=== PATIENT | female | born 1955 | race African-American/Black ===

== ENCOUNTER 2016-07-14 05:53 | Inpatient (IN) | payer OTHER ==
[2016-07-14] MEDS ORDERED: NS 1000 ML 1,000 ML ONE (05:55)
[2016-07-14] MEDS ORDERED: DUONEB 0.5 MG/3 MG NEB ONE ×2 (06:00→06:07)
[2016-07-14] MEDS ORDERED: SOLU-Medrol 125 MG VIAL IVP ONE (06:00)
[2016-07-14] MEDS ORDERED: NS 1000 ML 1,000 ML IV SCH (06:06)
[2016-07-14 06:07] LABS: ABG PCO2 > 115.0 mmHg (35.0-45.0)
[2016-07-14] MEDS ORDERED: DECADRON JET NEB NEB ONE (06:07)
[2016-07-14 06:08] LABS: ABG ALLEN TEST POS; FRACTIONATED INSPIRED OXYGEN 100
[2016-07-14] MEDS ORDERED: DECADRON INJ ONE (06:13)
[2016-07-14] MEDS ORDERED: DUONEB 0.5 MG/3 MG ONE (06:13)
[2016-07-14] MEDS ORDERED: ATIVAN INJ 2 MG VIAL ONE (06:18)
[2016-07-14] MEDS ORDERED: ATIVAN INJ 2 MG VIAL IVP ONE (06:20)
[2016-07-14] MEDS ORDERED: SODIUM BICARBONATE 8.4% INJ ADULT IVP ONE (06:21)
[2016-07-14] MEDS ORDERED: SODIUM BICARBONATE 8.4% INJ ADULT ONE (06:23)
[2016-07-14 06:30] LABS: BASOPHILS # (AUTO) 0.1 X10^3/uL (0.0-0.1); BASOPHILS % (AUTO) 0.6 % (0.2-1.0); EOSINOPHILS # (AUTO) 0.6 x10^3/uL (0.0-0.2); EOSINOPHILS % (AUTO) 3.2 % (0.9-2.9); HEMATOCRIT 44.6 % (36.0-47.0); HEMOGLOBIN 13.8 g/dL (12.0-16.0); LYMPHOCYTES # (AUTO) 9.3 X10^3/uL (1.3-2.9); LYMPHOCYTES % (AUTO) 48.2 % (21.0-51.0); MEAN CORPUSCULAR HEMOGLOBIN 22.1 pg (27.0-34.0); MEAN CORPUSCULAR HGB CONC 30.9 g/dL (33.0-35.0); MEAN CORPUSCULAR VOLUME 71.6 fL (80.0-100.0); MEAN PLATELET VOLUME 9.8 fL (7.4-11.0); MONOCYTES # (AUTO) 1.6 x10^3/uL (0.3-0.8); MONOCYTES % (AUTO) 8.2 % (0.0-13.0); NEUTROPHILS # (AUTO) 7.7 x10^3/uL (2.2-4.8); NEUTROPHILS % (AUTO) 39.8 % (42.0-75.0); PLATELET COUNT 258 X10^3/uL (150.0-450.0); RED BLOOD COUNT 6.23 X10^6/uL (3.5-5.4); RED CELL DISTRIBUTION WIDTH 16.4 % (11.6-16.5); WHITE BLOOD COUNT 19.3 X10^3/uL (3.6-10.0)
--- NOTE | 2016-07-14 06:35 | DR.SOBA ---
HPI - Time Seen Time seen: 06:35 - Primary Care Physician Primary Care Physician: Yuri - Complaints Chief Complaint Doctors Comments: Patient presented to the ED with respiratory distress, episode of apnea. She was carried to the ED department via stretcher. Nebulized treatment started, ABG obtained; stablized on Bipap. Patient with a history of COPD Chief Complaint:: Daughter stated she woke up stating she was having trouble breathing - Source History Provided: Family Member - Mode of Arrival Mode of Arrival: Stretcher - Timing Onset of Chief Complaint: 07/14/16 PMH - PMH Past Medical History: Yes Past Medical History: Asthma, COPD, Hypertension Past Surgical History: Yes Surgical History: Cholecystectomy, Hysterectomy - Family History History of Family Medical Conditions: Yes Family Medical History: Coronary Artery Disease, Hypertension - Social History Do you use any recreational Drugs:: No - infectious screening Have you traveled outside the country in the last 6 months?: No ROS - Review of Systems Constitutional: negative: Diaphoresis Eyes: No Symptoms Reported ENTM: No Symptoms Reported Respiratoy: No Symptoms Reported Cardiovascular: No Symptoms Reported Gastrointestinal/Abdominal: No Symptoms Reported Genitourinary: No Symptoms Reported Neurological: No Symptoms Reported Musculoskeletal: No Symptoms Reported Integumentary: No Symptoms Reported Hematologic/Lymphatic: No Symptoms Reported Endocrine: No Symptoms Reported Psychiatric: No Symptoms Reported All Other Systems: Reviewed and Negative PE - Vital Signs Vitals: Pulse Rate [Brachial] 112 Pulse Rate 115 Blood Pressure [Right Arm] 125/83 Blood Pressure [Standing] 141/70 Blood Pressure [Sitting] 129/67 Blood Pressure [Lying] 102/48 Blood Pressure 199/92 O2 Sat by Pulse Oximetry 98 - General Limitations: Altered Mental Status General Appearance: In No Apparent Distress, Lethargic - Head Head Exam: Normal Inspection, Atraumatic - Eyes Eye exam: Normal Appearance, PERRL, EOMI - ENT ENT Exam: Normal Exam - Neck Neck Exam: Normal Inspection, Full ROM - Chest Chest Inspection: Normal Inspection - Respiratory Respiratory Exam: Normal Lung Sounds Bilat Respiratory Exam: Bilateral Clear to Auscultation - Cardiovascular Cardiovascular Exam: Regular Rate - Abdominal Exam Abdominal Exam: Normal Inspection Abdominal Tenderness: negative: RUQ, RLQ, LUQ, LLQ, Epigastrium, Suprapubic, Diffuse, Mild, Moderate, Severe, Other - Extremities Extremities Exam: Normal Inspection, Full ROM - Back Back Exam: Normal Inspection, Full ROM - Neurologic Neurological Exam: Alert, Oriented X3, CN II-XII Intact - Psychiatric Psychiatric Exam: Normal Affect, Agitated - Skin Skin Exam: Warm, Dry, Intact Course - Reevaluation 1st: Improved - Consultation Called: 07:45 (Patient presented to Dr Welch recommended to admit for further evaluation and treatment) ROR - Labs Reviewed Result Diagrams: 07/14/16 06:10 07/14/16 06:10 Laboratory: WBC 19.3 X10^3/uL (3.6-10.0) H 07/14/16 06:10 RBC 6.23 X10^6/uL (3.5-5.4) H 07/14/16 06:10 Hgb 13.8 g/dL (12.0-16.0) 07/14/16 06:10 Hct 44.6 % (36.0-47.0) 07/14/16 06:10 MCV 71.6 fL (80.0-100.0) L 07/14/16 06:10 MCH 22.1 pg (27.0-34.0) L 07/14/16 06:10 MCHC 30.9 g/dL (33.0-35.0) L 07/14/16 06:10 RDW 16.4 % (11.6-16.5) 07/14/16 06:10 Plt Count 258 X10^3/uL (150.0-450.0) 07/14/16 06:10 Plt Count Comment Adequate (ADEQUATE) 07/14/16 06:10 MPV 9.8 fL (7.4-11.0) 07/14/16 06:10 Neut % 39.8 % (42.0-75.0) L 07/14/16 06:10 Lymph % 48.2 % (21.0-51.0) 07/14/16 06:10 Wallace % 8.2 % (0.0-13.0) 07/14/16 06:10 Eos % 3.2 % (0.9-2.9) H 07/14/16 06:10 Baso % 0.6 % (0.2-1.0) 07/14/16 06:10 Neut # 7.7 x10^3/uL (2.2-4.8) H 07/14/16 06:10 Lymph # 9.3 X10^3/uL (1.3-2.9) H 07/14/16 06:10 Wallace # 1.6 x10^3/uL (0.3-0.8) H 07/14/16 06:10 Eos # 0.6 x10^3/uL (0.0-0.2) H 07/14/16 06:10 Baso # 0.1 X10^3/uL (0.0-0.1) 07/14/16 06:10 Absolute Nucleated RBC 0.3 /100WBC 07/14/16 06:10 Plt Morphology Comment Normal (NORMAL) 07/14/16 06:10 RBC Morphology Abnormal (NORMAL) A 07/14/16 06:10 Hypochromasia 1+ A 07/14/16 06:10 Microcytosis Slight A 07/14/16 06:10 D-Dimer 2030 ng/mL (0-400) H* 07/14/16 06:10 Sample Site Rr 07/14/16 07:16 ABG pH 7.310 (7.35-7.45) L 07/14/16 07:16 ABG pCO2 53.0 mmHg (35.0-45.0) H* 07/14/16 07:16 ABG pO2 75.0 mmHg (80.0-100.0) L 07/14/16 07:16 ABG HCO3 26.7 mmol/L (22-26) H 07/14/16 07:16 ABG O2 Saturation 93.0 % (90-100) 07/14/16 07:16 ABG Base Excess -0.3 mmol/L (-2.0-2.0) 07/14/16 07:16 Adan Test Pos 07/14/16 07:16 A-a Gradient 572.0 mmHg 07/14/16 07:16 FiO2 100.000 07/14/16 07:16 Blood Gas Comments Pt raicel well. cdn 07/14/16 07:16 Sodium 144 mmol/L (136-145) 07/14/16 06:10 Corrected Sodium 148 mmol/L (136-145) H 07/14/16 06:10 Potassium 4.1 mmol/L (3.5-5.1) 07/14/16 06:10 Chloride 106 mmol/L (98-107) 07/14/16 06:10 Carbon Dioxide 25.3 mmol/L (21-32) 07/14/16 06:10 BUN 13 mg/dL (7-18) 07/14/16 06:10 Creatinine 1.24 mg/dL (0.55-1.02) H 07/14/16 06:10 Est GFR (MDRD) Af Amer 56 (>60) L 07/14/16 06:10 Est GFR (MDRD) Non-Af 47 (>60) L 07/14/16 06:10 Glucose 277 mg/dL (65-99) H 07/14/16 06:10 Calcium 8.8 mg/dL (8.5-10.1) 07/14/16 06:10 Corrected Calcium 9.4 mg/dL (8.5-10.1) 07/14/16 06:10 Total Bilirubin 0.40 mg/dL (0.2-1.0) 07/14/16 06:10 AST 53 Units/L (15-37) H 07/14/16 06:10 ALT 39 Units/L (12-78) 07/14/16 06:10 Alkaline Phosphatase 124 Units/L (46-116) H 07/14/16 06:10 Creatine Kinase 212 Units/L (26-192) H 07/14/16 06:10 CK-MB (CK-2) 1.1 ng/mL (0-4.0) 07/14/16 06:10 CK/CKMB % Calc 0.5 % (<4) 07/14/16 06:10 Troponin I < 0.02 ng/mL (0-1.5) 07/14/16 06:10 Total Protein 8.1 g/dL (6.4-8.2) 07/14/16 06:10 Albumin 3.2 g/dL (3.4-5.0) L 07/14/16 06:10 Globulin 4.9 g/dL (2.5-4.5) H 07/14/16 06:10 Albumin/Globulin Ratio 0.7 Ratio (1.1-2.1) L 07/14/16 06:10 - XRAY XRAY Interpreted by: Radiologist (Portable chest: There is moderately severe diffuse airspace disease. The heart size is normal. There is no obviouspleural effusion and there is no pneumothorax. Impression: Diffuse moderately severe airspace disease that may represent pulmonary edema.) - Diagnosis Discharge Problem: Respiratory distress, acute - Discharge Plan Condition: Stable - Follow ups/Referrals Follow ups/Referrals: JULIANN SZYMANSKI [Primary Care Provider] - 3 days - Instructions
[2016-07-14 06:38] LABS: BLOOD UREA NITROGEN 13 mg/dL (7-18); CALCIUM 8.8 mg/dL (8.5-10.1); CARBON DIOXIDE 25.3 mmol/L (21-32); CHLORIDE 106 mmol/L (98-107); COR NA(FOR HYPERGLY) 148 mmol/L (136-145); CREATININE 1.24 mg/dL (0.55-1.02); GLUCOSE 277 mg/dL (65-99); SODIUM 144 mmol/L (136-145); TROPONIN I < 0.02 ng/mL (0-1.5); eGFR BLACK RACES 56 (>60); eGFR NON BLACK RACES 47 (>60)
[2016-07-14 06:40] LABS: PLATELET MORPHOLOGY COMMENT NORMAL (NORMAL)
--- NOTE | 2016-07-14 06:40 | RAD ---
History: Shortness of breath Study: Portable chest. Comparison: November 2015 Findings: There is moderately severe diffuse airspace disease. The heart size is normal. There is no obvious pleural effusion and there is no pneumothorax. Impression: Diffuse moderately severe airspace disease that may represent pulmonary edema Reported By:
[2016-07-14 06:41] LABS: HYPOCHROMASIA 1+; MICROCYTOSIS SLIGHT
[2016-07-14 06:42] LABS: ALANINE AMINOTRANSFERASE 39 Units/L (12-78); ALBUMIN 3.2 g/dL (3.4-5.0); ALKALINE PHOSPHATASE 124 Units/L (46-116); ASPARTATE AMINO TRANSFERASE 53 Units/L (15-37); CKMB % 0.5 % (<4); COR CA(FOR HYPOALB) 9.4 mg/dL (8.5-10.1); CREATINE KINASE 212 Units/L (26-192); CREATINE KINASE MB 1.1 ng/mL (0-4.0); TOTAL PROTEIN 8.1 g/dL (6.4-8.2)
[2016-07-14 07:00] LABS: D DIMER 2030 ng/mL (0-400)
[2016-07-14 07:26] LABS: ABG BASE EXCESS -0.3 mmol/L (-2.0-2.0); ABG HCO3 26.7 mmol/L (22-26)
[2016-07-14 07:27] LABS: ABG ALLEN TEST POS
[2016-07-14] MEDS ORDERED: ZOFRAN INJ 4 MG VIAL ONE (08:54)
[2016-07-14] MEDS ORDERED: ZOFRAN INJ 4 MG VIAL IVP ONE (08:54)
[2016-07-14] MEDS ORDERED: NS 1000 ML 1,000 ML with POTASSIUM CHLORIDE INJ 20 MEQ VIAL 20 MEQ IV SCH ×2 (09:00)
[2016-07-14] MEDS ORDERED: NS + KCL 20 MEQ/L 1,000 ML IV ONE (09:04)
[2016-07-14] MEDS ORDERED: ROCEPHIN VIAL 1 GM ONE (09:05)
[2016-07-14] MEDS: ROCEPHIN VIAL 1 GM 1 GM in NS 50 ML IV + SPIKE MINIBAG* 50 ML IV SCH (09:17)
[2016-07-14 11:59] VITALS: BMI 53.6
[2016-07-14] MEDS: TUSSIONEX PENNKINETIC SUSP PO PRN (12:15)
[2016-07-14 12:21] LABS: BILIRUBIN,URINE NEGATIVE (NEGATIVE); BLOOD/HEMOGLOBIN,URINE 2+ (NEGATIVE); GLUCOSE, URINE 1+ (NEGATIVE); KETONES,URINE NEGATIVE (NEGATIVE); LEUKOCYTE ESTERASE ,URINE 1+ (NEGATIVE); NITRITES,URINE POSITIVE (NEGATIVE); PROTEIN,URINE 3+ (NEGATIVE); UROBILINOGEN,URINE NORMAL (NORMAL)
[2016-07-14 12:31] LABS: APPEARANCE,URINE HAZY (CLEAR); BACTERIA,URINE TRACE /HPF (NEGATIVE); COLOR,URINE YELLOW (YELLOW); SQUAMOUS EPITHELIAL CELL,UR FEW /HPF (NEGATIVE)
[2016-07-14 12:50] LABS: ABG BASE EXCESS 1.1 mmol/L (-2.0-2.0); ABG HCO3 27.9 mmol/L (22-26)
[2016-07-14 12:51] LABS: ABG ALLEN TEST POS
[2016-07-14] MEDS: LASIX IVP SCH ×2 (13:17→20:22)
[2016-07-14] MEDS: NS + KCL 20 MEQ/L 1,000 ML IV SCH (15:15)
[2016-07-14] MEDS ORDERED: BUDESONIDE FORMOTEROL IN SCH (16:30)
[2016-07-14] MEDS: NEBIVOLOL HCL 5 MG PO SCH (17:46)
--- NOTE | 2016-07-14 18:21 | DR.H&P ---
H&P - History & Physical for Day of: H&P Date: 07/14/16 - Chief Complaint Chief Complaint: weakness, short of breath, lethargic - Allergies Allergies/Adverse Reactions: Allergies Allergy/AdvReac Type Severity Reaction Status Date / Time No Known Drug Allergy Allergy Verified 07/14/16 10:46 - History of Present Illness History of Present Illness: patient is a 60-year-old black female who was an ER admission after presenting with respiratory distress. Patient has a past medical history of asthma and obstructive sleep apnea, hypertension and arthritis. The patient's family states she become ill with a cough and congestion for 1 day ago. Family denies any nausea vomiting diarrhea or fever accompanied by patient's respiratory illness. Patient has been using her albuterol inhaler at home without relief of shortness of breath. Patient admitted to ICU for respiratory management and further evaluation of acute respiratory illness - Past Medical History Past Medical History: Asthma, COPD, Hypertension - Past Surgical History Surgical History: Cholecystectomy, Hysterectomy - Family History Family Medical History: Coronary Artery Disease, Hypertension - Social History Does patient currently use any type of tobacco product: No Have you used tobacco products in the last 12 months: No Type of Tobacco Use: None Does any household member use tobacco: No Alcohol Use: None - Medications Home Medications: Budesonide-Formoterol [SYMBICORT INH 160-4.5 mcg (10.2 g) *] 1 inhalation IN DAILY 07/14/16 [History Confirmed 07/14/16] Furosemide [LASIX TAB 20 MG *] 1 tab PO DAILY 07/14/16 [History Confirmed ] Hydrochlorothiazide [HYDROCHLOROTHIAZIDE 25 MG TAB *] 1 tab PO DAILY 07/14/16 [ History Confirmed 07/14/16] Ipratropium/Albuterol Nebule [DUONEB 0.5 MG/3 MG NEBULE *] 1 inh INH QID [History Confirmed 07/14/16] Phendimetrazine Tartrate 1 cap PO DAILY 07/14/16 [History Confirmed 07/14/16] - Review of Systems Constitutional: Fever, Weakness ENT: No Symptoms Reported Respiratory: Cough, Shortness of Breath, SOB with Excertion, Wheezing Cardiovascular: Palpitations Gastrointestinal: Nausea Musculoskeletal: Back Pain Skin: No Symptoms Reported Neurological: Weakness (diffuse muscle weakness) - Physical Exam Vital Signs: Temperature 98.7 F Pulse Rate [Brachial] 96 Respiratory Rate 25 Blood Pressure [Right Arm] 108/69 O2 Sat by Pulse Oximetry 99 Oriented: Person (weak, opens eyes ,turns head in directions of speaker) Respiratory: Wheezes Throughout, RLL Diminished, LLL Diminished Cardiovascular: Tachycardia : Normal Auscultation: Bowel Sounds: Normal Palpation: Normal Tenderness: Normal Skin: Normal Psychiatric: Anxiety Affect: Anxious Speech Pattern: Aphasic (limited verbal response due to resp distress) - Assessment/Plan (1) Respiratory distress, acute Status: Acute Plan: ADMIT ICU, IV ATBX, IV STEROIDS, RESP THERAPY, ABG. REPEAT AM CXR, LASIX 40MG IV BID DUE TO PULMONARY EDEMA ON CXR. CARDIAC MONITORING (2) Asthma exacerbation Status: Acute (3) Hypertension Qualifiers: Hypertension type: H Status: Acute Plan: BP CONTROL, CARDIAC MONITORING (4) COPD (chronic obstructive pulmonary disease) Qualifiers: COPD type: C Chronic bronchitis type: C Emphysema type: E Status: Acute
[2016-07-14] MEDS: PROVENTIL NEB TX 0.083% 2.5MG/ 3ML NEB SCH ×2 (19:03→21:08)
[2016-07-14] MEDS: ROBITUSSIN DM PO PRN (20:31)
[2016-07-14] MEDS: PULMICORT NEB TX 0.5 MG NEB SCH (21:08)
[2016-07-15] MEDS: NS + KCL 20 MEQ/L 1,000 ML IV SCH ×3 (02:41→18:41)
[2016-07-15] MEDS ORDERED: NS 100 ML IV 100 ML IV ONE (05:57)
--- NOTE | 2016-07-15 06:11 | RAD ---
HISTORY: Respiratory distress Study: Chest one view Comparison: July 14, 2016 Findings: The heart remains enlarged. Pulmonary venous congestion is present. Diffuse bilateral perihilar alve olar filling is identified somewhat improved when compared with the prior examination, however. This could be on the basis of cardiogenic for noncardiogenic edema or bilateral pneumonia. No pleural ef fusions are identified. The bony thorax is unremarkable. IMPRESSION: Moderate cardiomegaly Some improvement in the bilateral perihilar alveolar filling being followed. This could represent re solving edema or improving bilateral pneumonia. Reported By:
[2016-07-15 06:22] LABS: ALANINE AMINOTRANSFERASE 46 Units/L (12-78); ALBUMIN 2.8 g/dL (3.4-5.0); ALKALINE PHOSPHATASE 97 Units/L (46-116); ASPARTATE AMINO TRANSFERASE 40 Units/L (15-37); BLOOD UREA NITROGEN 17 mg/dL (7-18); CALCIUM 8.7 mg/dL (8.5-10.1); CARBON DIOXIDE 30.1 mmol/L (21-32); CHLORIDE 106 mmol/L (98-107); COR CA(FOR HYPOALB) 9.7 mg/dL (8.5-10.1); COR NA(FOR HYPERGLY) 143 mmol/L (136-145); CREATININE 0.91 mg/dL (0.55-1.02); GLUCOSE 124 mg/dL (65-99); SODIUM 142 mmol/L (136-145); TOTAL PROTEIN 7.3 g/dL (6.4-8.2); eGFR BLACK RACES > 60 (>60); eGFR NON BLACK RACES > 60 (>60)
[2016-07-15 06:27] LABS: BASOPHILS % (AUTO) 0.2 % (0.2-1.0); HEMATOCRIT 39.2 % (36.0-47.0); HEMOGLOBIN 12.8 g/dL (12.0-16.0); LYMPHOCYTES # (AUTO) 1.9 X10^3/uL (1.3-2.9); LYMPHOCYTES % (AUTO) 11.1 % (21.0-51.0); MEAN CORPUSCULAR HEMOGLOBIN 22.1 pg (27.0-34.0); MEAN CORPUSCULAR HGB CONC 32.7 g/dL (33.0-35.0); MEAN CORPUSCULAR VOLUME 67.7 fL (80.0-100.0); MEAN PLATELET VOLUME 9.4 fL (7.4-11.0); MONOCYTES # (AUTO) 1.5 x10^3/uL (0.3-0.8); MONOCYTES % (AUTO) 9.1 % (0.0-13.0); NEUTROPHILS # (AUTO) 13.6 x10^3/uL (2.2-4.8); NEUTROPHILS % (AUTO) 79.6 % (42.0-75.0); PLATELET COUNT 255 X10^3/uL (150.0-450.0); RED BLOOD COUNT 5.79 X10^6/uL (3.5-5.4); RED CELL DISTRIBUTION WIDTH 16.1 % (11.6-16.5)
--- NOTE | 2016-07-15 07:16 | CT ---
HISTORY: Acute respiratory distress Study: CTA chest with contrast for pulmonary embolus Comparison: November 09, 2015 Technique: Axial post-contrast images with coronal and sagittal reformats. Dose reduction [facility]kv adjusted for body size. Findings: There is no evidence for acute pulmonary thromboembolic disease. Examination of the mediastinum agai n demonstrated marked enlargement of the thyroid gland with substernal extension and rightward trach eal deviation. The corner also contributes to tracheal narrowing. The should be further evaluated so nographically. This is unchanged in appearance from the prior examination. No enlarged mediastinal o r enlarged hilar adenopathy is identified. No pleural effusions are present. No chest wall or axilla ry abnormality is identified. Those portions of the upper abdominal organs visualized were within no rmal limits. Examination of the lung [place] demonstrates diffuse bilateral patchy and confluent infi ltrates which could be on the basis of bilateral pneumonia, edema, or ARDS. No pleural effusions are identified. IMPRESSION: No evidence for acute pulmonary thromboembolic disease Diffuse bilateral patchy and confluent infiltrates which could represent bilateral pneumonia, edema, or ARDS Markedly enlarged thyroid with substernal extension, rightward tracheal deviation and tracheal narro wing Reported By:
[2016-07-15 07:31] LABS: HYPOCHROMASIA 1+; MICROCYTOSIS 1+; PLATELET MORPHOLOGY COMMENT NORMAL (NORMAL)
[2016-07-15] MEDS: PROVENTIL NEB TX 0.083% 2.5MG/ 3ML NEB SCH ×4 (08:55→21:25)
[2016-07-15] MEDS: PULMICORT NEB TX 0.5 MG NEB SCH ×2 (08:56→21:26)
[2016-07-15] MEDS ORDERED: LASIX PO SCH (09:00)
[2016-07-15] MEDS ORDERED: HYDROCHLOROTHIAZIDE 25 MG TAB PO SCH (09:00)
[2016-07-15] MEDS: LASIX IVP SCH ×2 (09:26→20:00)
[2016-07-15] MEDS: ROCEPHIN VIAL 1 GM 1 GM in NS 50 ML IV + SPIKE MINIBAG* 50 ML IV SCH (09:27)
[2016-07-15] MEDS: NEBIVOLOL HCL 5 MG PO SCH (09:36)
--- NOTE | 2016-07-15 13:05 | PCM.PROG ---
Progress Note - Progress Note for Day of Date: 07/15/16 - Subjective Subjective: 60 BF ADMITTED ON 07/14/2016 WITH ACUTE RESP DISTRESS WITH PULMONARY EDEMA. PT REMOVED FROM BIPAP THIS AM, ON HIGH FLOW O2, DOING MUCH IMPROVED. PT HAS THYROMEGALY FINDING ON CT CHEST, CONITNUE CURRENT MEDICATIONS, IV ATBX, RESP THERAPY, ENCOURAGE ORAL HYDRATION, STRICT I & O'S - Past Medical Family Social History Past Med/Fam/Surg Hx: No changes since H&P Allergies: Allergies No Known Drug Allergy Allergy (Verified 07/14/16 10:46) - Review of Systems ROS: No change since H&P - Vital Signs and I&O's Vital Signs: Temperature 97.6 F Pulse Rate [Brachial] 86 Pulse Rate 85 Respiratory Rate 20 Blood Pressure [Right Arm] 139/78 O2 Sat by Pulse Oximetry 96 Intake and Output: Intake & Output 07/13/16 07/14/16 07/15/16 07/16/16 11:59 11:59 11:59 11:59 Intake Total 2698 Output Total 1900 Balance 798 - Physical Exam Oriented: Normal, Time, Person, Place Eyes: Normal Ear: Normal Nose: Normal Throat: Other (THYROMEGALY) Respiratory: Wheezes Cardiovascular: Tachycardia : Normal Auscultation: Bowel Sounds: Normal Tenderness: Normal Skin: Normal Psychiatric: Anxiety Affect: Anxious Speech Pattern: Clear, Appropriate - Laboratory and Diagnostics Result Diagrams: 07/15/16 05:30 07/15/16 05:30 Labs: 07/14/16 10:43 Urine,[place] Urine Culture - Preliminary Laboratory WBC 17.0 X10^3/uL (3.6-10.0) H 07/15/16 05:30 RBC 5.79 X10^6/uL (3.5-5.4) H 07/15/16 05:30 Hgb 12.8 g/dL (12.0-16.0) 07/15/16 05:30 Hct 39.2 % (36.0-47.0) 07/15/16 05:30 MCV 67.7 fL (80.0-100.0) L 07/15/16 05:30 MCH 22.1 pg (27.0-34.0) L 07/15/16 05:30 MCHC 32.7 g/dL (33.0-35.0) L 07/15/16 05:30 RDW 16.1 % (11.6-16.5) 07/15/16 05:30 Plt Count 255 X10^3/uL (150.0-450.0) 07/15/16 05:30 Plt Count Comment Adequate (ADEQUATE) 07/15/16 05:30 MPV 9.4 fL (7.4-11.0) 07/15/16 05:30 Neut % 79.6 % (42.0-75.0) H 07/15/16 05:30 Lymph % 11.1 % (21.0-51.0) L 07/15/16 05:30 [place] % 9.1 % (0.0-13.0) 07/15/16 05:30 Eos % 0.0 % (0.9-2.9) L 07/15/16 05:30 Baso % 0.2 % (0.2-1.0) 07/15/16 05:30 Neut # 13.6 x10^3/uL (2.2-4.8) H 07/15/16 05:30 Lymph # 1.9 X10^3/uL (1.3-2.9) 07/15/16 05:30 [place] # 1.5 x10^3/uL (0.3-0.8) H 07/15/16 05:30 Eos # 0.0 x10^3/uL (0.0-0.2) 07/15/16 05:30 Baso # 0.0 X10^3/uL (0.0-0.1) 07/15/16 05:30 Absolute Nucleated RBC 0.0 /100WBC 07/15/16 05:30 Plt Morphology Comment Normal (NORMAL) 07/15/16 05:30 RBC Morphology Abnormal (NORMAL) A 07/15/16 05:30 Hypochromasia 1+ A 07/15/16 05:30 Microcytosis 1+ A 07/15/16 05:30 D-Dimer 2030 ng/mL (0-400) H* 07/14/16 06:10 Sample Site Rr 07/14/16 12:45 ABG pH 7.330 (7.35-7.45) L 07/14/16 12:45 ABG pCO2 53.0 mmHg (35.0-45.0) H* 07/14/16 12:45 ABG pO2 70.0 mmHg (80.0-100.0) L 07/14/16 12:45 ABG HCO3 27.9 mmol/L (22-26) H 07/14/16 12:45 ABG O2 Saturation 92.0 % (90-100) 07/14/16 12:45 ABG Base Excess 1.1 mmol/L (-2.0-2.0) 07/14/16 12:45 Adan Test Pos 07/14/16 12:45 A-a Gradient 363.0 mmHg 07/14/16 12:45 FiO2 70.000 07/14/16 12:45 Blood Gas Comments Pt [email or web address] [email or web address] 07/14/16 12:45 Sodium 142 mmol/L (136-145) 07/15/16 05:30 Corrected Sodium 143 mmol/L (136-145) 07/15/16 05:30 Potassium 4.4 mmol/L (3.5-5.1) 07/15/16 05:30 Chloride 106 mmol/L (98-107) 07/15/16 05:30 Carbon Dioxide 30.1 mmol/L (21-32) 07/15/16 05:30 BUN 17 mg/dL (7-18) 07/15/16 05:30 Creatinine 0.91 mg/dL (0.55-1.02) 07/15/16 05:30 Est GFR (MDRD) Af Amer > 60 (>60) 07/15/16 05:30 Est GFR (MDRD) Non-Af > 60 (>60) 07/15/16 05:30 Glucose 124 mg/dL (65-99) H 07/15/16 05:30 Lactic Acid 3.1 mmol/L (0.4-2.0) H 07/14/16 08:38 Calcium 8.7 mg/dL (8.5-10.1) 07/15/16 05:30 Corrected Calcium 9.7 mg/dL (8.5-10.1) 07/15/16 05:30 Total Bilirubin 0.40 mg/dL (0.2-1.0) 07/15/16 05:30 AST 40 Units/L (15-37) H 07/15/16 05:30 ALT 46 Units/L (12-78) 07/15/16 05:30 Alkaline Phosphatase 97 Units/L (46-116) 07/15/16 05:30 Creatine Kinase 212 Units/L (26-192) H 07/14/16 06:10 CK-MB (CK-2) 1.1 ng/mL (0-4.0) 07/14/16 06:10 CK/CKMB % Calc 0.5 % (<4) 07/14/16 06:10 Troponin I < 0.02 ng/mL (0-1.5) 07/14/16 06:10 Total Protein 7.3 g/dL (6.4-8.2) 07/15/16 05:30 Albumin 2.8 g/dL (3.4-5.0) L 07/15/16 05:30 Globulin 4.5 g/dL (2.5-4.5) 07/15/16 05:30 Albumin/Globulin Ratio 0.6 Ratio (1.1-2.1) L 07/15/16 05:30 Specimen Type Clean catch urine 07/14/16 10:43 Urine Color Yellow (YELLOW) 07/14/16 10:43 Urine Appearance Hazy (CLEAR) 07/14/16 10:43 Urine pH 5.0 (5.0 - 8.0) 07/14/16 10:43 Ur Specific [place] 1.030 (1.000-1.030) 07/14/16 10:43 Urine Protein 3+ (NEGATIVE) 07/14/16 10:43 Urine Glucose (UA) 1+ (NEGATIVE) 07/14/16 10:43 Urine Ketones Negative (NEGATIVE) 07/14/16 10:43 Urine Occult Blood 2+ (NEGATIVE) 07/14/16 10:43 Urine Nitrite Positive (NEGATIVE) 07/14/16 10:43 Urine Bilirubin Negative (NEGATIVE) 07/14/16 10:43 Urine Urobilinogen Normal (NORMAL) 07/14/16 10:43 Ur Leukocyte Esterase 1+ (NEGATIVE) 07/14/16 10:43 Urine RBC 6-8 /HPF (NEGATIVE) 07/14/16 10:43 Urine WBC 8-10 /HPF (NEGATIVE) 07/14/16 10:43 Ur Squamous Epith Cells Few /HPF (NEGATIVE) 07/14/16 10:43 Urine Bacteria Trace /HPF (NEGATIVE) 07/14/16 10:43 Ur Culture Indicated? Yes/culture set up 07/14/16 10:43 - Plan (1) Respiratory distress, acute Status: Acute Plan: IMPROVING RESPIRATORY DISTRESS, IV STEROIDS, RESP THERAPY,. REPEAT AM CXR , LASIX 40MG IV BID X4 DOSES. DUE TO PULMONARY EDEMA ON CXR. CARDIAC MONITORING (2) Asthma exacerbation Status: Inactive Plan: RESP CARE, IV STEROIDS (3) Hypertension Status: Acute Qualifiers: Hypertension type: H Plan: BP CONTROL, CARDIAC MONITORING (4) COPD (chronic obstructive pulmonary disease) Status: Acute Qualifiers: COPD type: C Chronic bronchitis type: C Emphysema type: E (5) Thyroid goiter Status: Chronic Plan: CT REPORT ON CHART
[2016-07-15 13:57] LABS: FREE T4 (FREE THYROXINE) 1.19 ng/dL (0.76-1.46); TSH (3RD GENERATION) 0.312 uIU/mL (0.358-3.74)
[2016-07-15] MEDS: PROTONIX INJ 40 MG VIAL IVP SCH (16:25)
[2016-07-15] MEDS: TUSSIONEX PENNKINETIC SUSP PO PRN (20:00)
[2016-07-15] MEDS: MILK OF MAGNESIA PO SCH (20:00)
[2016-07-15] MEDS: COLACE CAP 100 MG PO SCH (20:00)
[2016-07-15] MEDS: ROBITUSSIN DM PO PRN (20:00)
[2016-07-16 06:31] LABS: BASOPHILS % (AUTO) 0.3 % (0.2-1.0); EOSINOPHILS # (AUTO) 0.1 x10^3/uL (0.0-0.2); EOSINOPHILS % (AUTO) 0.7 % (0.9-2.9); HEMATOCRIT 37.8 % (36.0-47.0); HEMOGLOBIN 12.4 g/dL (12.0-16.0); LYMPHOCYTES # (AUTO) 3.8 X10^3/uL (1.3-2.9); LYMPHOCYTES % (AUTO) 28.4 % (21.0-51.0); MEAN CORPUSCULAR HEMOGLOBIN 22.2 pg (27.0-34.0); MEAN CORPUSCULAR HGB CONC 32.7 g/dL (33.0-35.0); MEAN PLATELET VOLUME 9.6 fL (7.4-11.0); MONOCYTES # (AUTO) 1.2 x10^3/uL (0.3-0.8); MONOCYTES % (AUTO) 9.1 % (0.0-13.0); NEUTROPHILS # (AUTO) 8.2 x10^3/uL (2.2-4.8); NEUTROPHILS % (AUTO) 61.5 % (42.0-75.0); PLATELET COUNT 214 X10^3/uL (150.0-450.0); RED BLOOD COUNT 5.56 X10^6/uL (3.5-5.4); RED CELL DISTRIBUTION WIDTH 15.8 % (11.6-16.5); WHITE BLOOD COUNT 13.3 X10^3/uL (3.6-10.0)
[2016-07-16 07:01] LABS: ALANINE AMINOTRANSFERASE 37 Units/L (12-78); ALKALINE PHOSPHATASE 91 Units/L (46-116); ASPARTATE AMINO TRANSFERASE 30 Units/L (15-37); BLOOD UREA NITROGEN 17 mg/dL (7-18); CALCIUM 8.7 mg/dL (8.5-10.1); CHLORIDE 103 mmol/L (98-107); COR CA(FOR HYPOALB) 9.5 mg/dL (8.5-10.1); CREATININE 0.85 mg/dL (0.55-1.02); GLUCOSE 100 mg/dL (65-99); SODIUM 143 mmol/L (136-145); TOTAL PROTEIN 7.5 g/dL (6.4-8.2); eGFR BLACK RACES > 60 (>60); eGFR NON BLACK RACES > 60 (>60)
[2016-07-16 07:31] LABS: HYPOCHROMASIA 1+; MICROCYTOSIS 1+; PLATELET MORPHOLOGY COMMENT NORMAL (NORMAL)
[2016-07-16] MEDS: PROVENTIL NEB TX 0.083% 2.5MG/ 3ML NEB SCH ×4 (08:52→20:21)
[2016-07-16] MEDS: PULMICORT NEB TX 0.5 MG NEB SCH ×2 (08:53→20:22)
[2016-07-16] MEDS: PROTONIX INJ 40 MG VIAL IVP SCH (09:39)
[2016-07-16] MEDS: ROCEPHIN VIAL 1 GM 1 GM in NS 50 ML IV + SPIKE MINIBAG* 50 ML IV SCH (09:39)
[2016-07-16] MEDS: NEBIVOLOL HCL 5 MG PO SCH (10:17)
--- NOTE | 2016-07-16 11:19 | RAD ---
AP Chest Indication: Shortness of breath Comparison: 07/15/2016 Findings: The trachea is midline. The cardiac silhouette is unremarkable. The overall there is decreasing in terstitial opacities and peribronchial thickening likely representing improving pulmonary interstiti al edema or atypical infiltrates. The bony thorax is unremarkable. IMPRESSION: 1. Moderate decrease in interstitial opacities and peribronchial thickening within both lungs consi stent with either improving interstitial edema or atypical infiltrates. Reported By:
--- NOTE | 2016-07-16 11:55 | PCM.PROG ---
Progress Note - Subjective Subjective: 60 BF ADMITTED ON 07/14/2016 WITH ACUTE RESP DISTRESS WITH PULMONARY EDEMA. PT REMOVED FROM BIPAP THIS AM, ON HIGH FLOW O2, DOING MUCH IMPROVED. PT HAS THYROMEGALY FINDING ON CT CHEST, CONITNUE CURRENT MEDICATIONS, IV ATBX, RESP THERAPY, ENCOURAGE ORAL HYDRATION, STRICT I & O'S - Past Medical Family Social History Past Med/Fam/Surg Hx: No changes since H&P Allergies: Allergies No Known Drug Allergy Allergy (Verified 07/14/16 10:46) - Review of Systems ROS: No change since H&P - Vital Signs and I&O's Vital Signs: Temperature 98.5 F Pulse Rate [Brachial] 85 Pulse Rate 82 Respiratory Rate 17 Blood Pressure [Right Arm] 115/73 O2 Sat by Pulse Oximetry 97 Intake and Output: Intake & Output 07/13/16 07/14/16 07/15/16 07/16/16 11:59 11:59 11:59 11:59 Intake Total 2698 2240 Output Total 1900 4900 Balance 798 -2660 - Physical Exam Oriented: Normal, Time, Person, Place Eyes: Normal Ear: Normal Nose: Normal Throat: Other (THYROMEGALY) Respiratory: Wheezes Cardiovascular: Tachycardia : Normal Auscultation: Bowel Sounds: Normal Tenderness: Normal Skin: Normal Psychiatric: Anxiety Affect: Anxious Speech Pattern: Clear, Appropriate - Laboratory and Diagnostics Result Diagrams: 07/16/16 05:35 07/16/16 05:35 Labs: 07/16/16 10:16 Sputum - Expectorated Sputum - Final 07/14/16 10:43 Urine,[place] Urine Culture - Final Escherichia Coli Laboratory WBC 13.3 X10^3/uL (3.6-10.0) H 07/16/16 05:35 RBC 5.56 X10^6/uL (3.5-5.4) H 07/16/16 05:35 Hgb 12.4 g/dL (12.0-16.0) 07/16/16 05:35 Hct 37.8 % (36.0-47.0) 07/16/16 05:35 MCV 68.0 fL (80.0-100.0) L 07/16/16 05:35 MCH 22.2 pg (27.0-34.0) L 07/16/16 05:35 MCHC 32.7 g/dL (33.0-35.0) L 07/16/16 05:35 RDW 15.8 % (11.6-16.5) 07/16/16 05:35 Plt Count 214 X10^3/uL (150.0-450.0) 07/16/16 05:35 Plt Count Comment Adequate (ADEQUATE) 07/16/16 05:35 MPV 9.6 fL (7.4-11.0) 07/16/16 05:35 Neut % 61.5 % (42.0-75.0) 07/16/16 05:35 Lymph % 28.4 % (21.0-51.0) 07/16/16 05:35 [place] % 9.1 % (0.0-13.0) 07/16/16 05:35 Eos % 0.7 % (0.9-2.9) L 07/16/16 05:35 Baso % 0.3 % (0.2-1.0) 07/16/16 05:35 Neut # 8.2 x10^3/uL (2.2-4.8) H 07/16/16 05:35 Lymph # 3.8 X10^3/uL (1.3-2.9) H 07/16/16 05:35 [place] # 1.2 x10^3/uL (0.3-0.8) H 07/16/16 05:35 Eos # 0.1 x10^3/uL (0.0-0.2) 07/16/16 05:35 Baso # 0.0 X10^3/uL (0.0-0.1) 07/16/16 05:35 Absolute Nucleated RBC 0.1 /100WBC 07/16/16 05:35 Plt Morphology Comment Normal (NORMAL) 07/16/16 05:35 RBC Morphology Abnormal (NORMAL) A 07/16/16 05:35 Hypochromasia 1+ A 07/16/16 05:35 Microcytosis 1+ A 07/16/16 05:35 D-Dimer 2030 ng/mL (0-400) H* 07/14/16 06:10 Sample Site Rr 07/14/16 12:45 ABG pH 7.330 (7.35-7.45) L 07/14/16 12:45 ABG pCO2 53.0 mmHg (35.0-45.0) H* 07/14/16 12:45 ABG pO2 70.0 mmHg (80.0-100.0) L 07/14/16 12:45 ABG HCO3 27.9 mmol/L (22-26) H 07/14/16 12:45 ABG O2 Saturation 92.0 % (90-100) 07/14/16 12:45 ABG Base Excess 1.1 mmol/L (-2.0-2.0) 07/14/16 12:45 Adan Test Pos 07/14/16 12:45 A-a Gradient 363.0 mmHg 07/14/16 12:45 FiO2 70.000 07/14/16 12:45 Blood Gas Comments Pt [facility]iel [email or web address] 07/14/16 12:45 Sodium 143 mmol/L (136-145) 07/16/16 05:35 Corrected Sodium TNP 07/16/16 05:35 Potassium 4.2 mmol/L (3.5-5.1) 07/16/16 05:35 Chloride 103 mmol/L (98-107) 07/16/16 05:35 Carbon Dioxide 34.0 mmol/L (21-32) H 07/16/16 05:35 BUN 17 mg/dL (7-18) 07/16/16 05:35 Creatinine 0.85 mg/dL (0.55-1.02) 07/16/16 05:35 Est GFR (MDRD) Af Amer > 60 (>60) 07/16/16 05:35 Est GFR (MDRD) Non-Af > 60 (>60) 07/16/16 05:35 Glucose 100 mg/dL (65-99) H 07/16/16 05:35 Lactic Acid 3.1 mmol/L (0.4-2.0) H 07/14/16 08:38 Calcium 8.7 mg/dL (8.5-10.1) 07/16/16 05:35 Corrected Calcium 9.5 mg/dL (8.5-10.1) 07/16/16 05:35 Total Bilirubin 0.50 mg/dL (0.2-1.0) 07/16/16 05:35 AST 30 Units/L (15-37) 07/16/16 05:35 ALT 37 Units/L (12-78) 07/16/16 05:35 Alkaline Phosphatase 91 Units/L (46-116) 07/16/16 05:35 Creatine Kinase 212 Units/L (26-192) H 07/14/16 06:10 CK-MB (CK-2) 1.1 ng/mL (0-4.0) 07/14/16 06:10 CK/CKMB % Calc 0.5 % (<4) 07/14/16 06:10 Troponin I < 0.02 ng/mL (0-1.5) 07/14/16 06:10 Total Protein 7.5 g/dL (6.4-8.2) 07/16/16 05:35 Albumin 3.0 g/dL (3.4-5.0) L 07/16/16 05:35 Globulin 4.5 g/dL (2.5-4.5) 07/16/16 05:35 Albumin/Globulin Ratio 0.7 Ratio (1.1-2.1) L 07/16/16 05:35 Free T4 1.19 ng/dL (0.76-1.46) 07/15/16 05:30 TSH 3rd Generation 0.312 uIU/mL (0.358-3.74) L 07/15/16 05:30 Specimen Type Clean catch urine 07/14/16 10:43 Urine Color Yellow (YELLOW) 07/14/16 10:43 Urine Appearance Hazy (CLEAR) 07/14/16 10:43 Urine pH 5.0 (5.0 - 8.0) 07/14/16 10:43 Ur Specific [place] 1.030 (1.000-1.030) 07/14/16 10:43 Urine Protein 3+ (NEGATIVE) 07/14/16 10:43 Urine Glucose (UA) 1+ (NEGATIVE) 07/14/16 10:43 Urine Ketones Negative (NEGATIVE) 07/14/16 10:43 Urine Occult Blood 2+ (NEGATIVE) 07/14/16 10:43 Urine Nitrite Positive (NEGATIVE) 07/14/16 10:43 Urine Bilirubin Negative (NEGATIVE) 07/14/16 10:43 Urine Urobilinogen Normal (NORMAL) 07/14/16 10:43 Ur Leukocyte Esterase 1+ (NEGATIVE) 07/14/16 10:43 Urine RBC 6-8 /HPF (NEGATIVE) 07/14/16 10:43 Urine WBC 8-10 /HPF (NEGATIVE) 07/14/16 10:43 Ur Squamous Epith Cells Few /HPF (NEGATIVE) 07/14/16 10:43 Urine Bacteria Trace /HPF (NEGATIVE) 07/14/16 10:43 Ur Culture Indicated? Yes/culture set up 07/14/16 10:43 - Plan (1) Respiratory distress, acute Status: Acute Plan: IMPROVING RESPIRATORY DISTRESS, IV STEROIDS, RESP THERAPY,. REPEAT AM CXR , LASIX 40MG IV BID X4 DOSES. DUE TO PULMONARY EDEMA ON CXR. CARDIAC MONITORING (2) Asthma exacerbation Status: Inactive Plan: RESP CARE, IV STEROIDS (3) Hypertension Status: Acute Qualifiers: Hypertension type: H Plan: BP CONTROL, CARDIAC MONITORING (4) COPD (chronic obstructive pulmonary disease) Status: Acute Qualifiers: COPD type: C Chronic bronchitis type: C Emphysema type: E (5) Thyroid goiter Status: Chronic Plan: CT REPORT ON CHART, [facility] FREET4, US THYROID. PFT R/O RESTRICTED AIRWAY (6) Acute on chronic respiratory failure with hypercapnia Status: Acute Plan: CONITNUE RESP CARE, AM CXR, PFT. CONSULT [facility] FOR RESP SERVICES AT HOME, CPAP/TRILOGY THERAPY
[2016-07-16] MEDS: COLACE CAP 100 MG PO SCH (20:00)
[2016-07-16] MEDS: MILK OF MAGNESIA PO SCH (20:00)
--- NOTE | 2016-07-16 20:51 | US ---
ULTRASOUND OF THE THYROID CLINICAL INDICATION: Thyromegaly COMPARISON: None PROCEDURE: Grayscale and color images of the thyroid was obtained. Findings: Isthmus: Isthmus measures 18 mm. Right thyroid: Right thyroid lobe measures 4.6 x 1.6 x 1.7 cm. No nodules. Left thyroid: Left thyroid lobe measures 5.7 x 3.6 x 6.3 cm. 1.2 cm cyst. IMPRESSION: 1. Enlarged thyroid gland without nodule amenable to FNA biopsy. [email or web address]://pubs.[email or web address]/doi/[email or web address] Reported By:
[2016-07-16] MEDS: NS + KCL 20 MEQ/L 1,000 ML IV SCH ×2 (21:40→21:54)
[2016-07-17 06:23] LABS: BASOPHILS # (AUTO) 0.1 X10^3/uL (0.0-0.1); BASOPHILS % (AUTO) 1.1 % (0.2-1.0); EOSINOPHILS # (AUTO) 0.2 x10^3/uL (0.0-0.2); EOSINOPHILS % (AUTO) 1.8 % (0.9-2.9); HEMATOCRIT 37.1 % (36.0-47.0); HEMOGLOBIN 12.1 g/dL (12.0-16.0); LYMPHOCYTES # (AUTO) 3.3 X10^3/uL (1.3-2.9); LYMPHOCYTES % (AUTO) 35.2 % (21.0-51.0); MEAN CORPUSCULAR HEMOGLOBIN 22.2 pg (27.0-34.0); MEAN CORPUSCULAR HGB CONC 32.7 g/dL (33.0-35.0); MEAN CORPUSCULAR VOLUME 67.8 fL (80.0-100.0); MEAN PLATELET VOLUME 9.7 fL (7.4-11.0); MONOCYTES # (AUTO) 0.9 x10^3/uL (0.3-0.8); MONOCYTES % (AUTO) 9.6 % (0.0-13.0); NEUTROPHILS # (AUTO) 4.8 x10^3/uL (2.2-4.8); NEUTROPHILS % (AUTO) 52.3 % (42.0-75.0); PLATELET COUNT 200 X10^3/uL (150.0-450.0); RED BLOOD COUNT 5.47 X10^6/uL (3.5-5.4); RED CELL DISTRIBUTION WIDTH 16.1 % (11.6-16.5); WHITE BLOOD COUNT 9.2 X10^3/uL (3.6-10.0)
[2016-07-17 06:56] LABS: ALANINE AMINOTRANSFERASE 30 Units/L (12-78); ALBUMIN 2.7 g/dL (3.4-5.0); ALKALINE PHOSPHATASE 82 Units/L (46-116); ASPARTATE AMINO TRANSFERASE 17 Units/L (15-37); BLOOD UREA NITROGEN 14 mg/dL (7-18); CALCIUM 8.7 mg/dL (8.5-10.1); CARBON DIOXIDE 33.5 mmol/L (21-32); CHLORIDE 106 mmol/L (98-107); COR CA(FOR HYPOALB) 9.7 mg/dL (8.5-10.1); CREATININE 0.76 mg/dL (0.55-1.02); GLUCOSE 95 mg/dL (65-99); SODIUM 144 mmol/L (136-145); TOTAL PROTEIN 7.2 g/dL (6.4-8.2); eGFR BLACK RACES > 60 (>60); eGFR NON BLACK RACES > 60 (>60)
[2016-07-17 07:01] LABS: HYPOCHROMASIA 1+; MICROCYTOSIS 1+; PLATELET MORPHOLOGY COMMENT NORMAL (NORMAL)
[2016-07-17] MEDS: PROTONIX INJ 40 MG VIAL IVP SCH (08:56)
[2016-07-17] MEDS: ROCEPHIN VIAL 1 GM 1 GM in NS 50 ML IV + SPIKE MINIBAG* 50 ML IV SCH (08:56)
[2016-07-17] MEDS: PULMICORT NEB TX 0.5 MG NEB SCH ×2 (09:22→21:05)
[2016-07-17] MEDS: PROVENTIL NEB TX 0.083% 2.5MG/ 3ML NEB SCH ×4 (09:22→21:05)
[2016-07-17] MEDS: LOVENOX INJ 40 MG SYR SC SCH (10:09)
--- NOTE | 2016-07-17 12:56 | PCM.PROG ---
Progress Note - Progress Note for Day of Date: 07/17/16 - Subjective Subjective: 60 BF ADMITTED ON 07/14/2016 WITH ACUTE RESP DISTRESS WITH PULMONARY EDEMA. PT REMOVED FROM BIPAP THIS AM, ON HIGH FLOW O2, DOING MUCH IMPROVED. PT HAS THYROMEGALY FINDING ON CT CHEST, CONFIRMED WITH US. CONITNUE CURRENT MEDICATIONS, IV ATBX, RESP THERAPY, ENCOURAGE ORAL HYDRATION, STRICT I & O'S REPEAT AM ABG, CXR Q AM - Past Medical Family Social History Past Med/Fam/Surg Hx: No changes since H&P Allergies: Allergies No Known Drug Allergy Allergy (Verified 07/14/16 10:46) - Review of Systems ROS: No change since H&P - Vital Signs and I&O's Vital Signs: Temperature 97.8 F Pulse Rate [Brachial] 85 Pulse Rate 75 Respiratory Rate 20 Blood Pressure [Right Arm] 109/60 O2 Sat by Pulse Oximetry 98 Intake and Output: Intake & Output 07/15/16 07/16/16 07/17/16 07/18/16 11:59 11:59 11:59 11:59 Intake Total 2698 2240 2356 Output Total 1900 4900 1900 Balance 798 -2660 456 - Physical Exam Oriented: Normal, Time, Person, Place Eyes: Normal Ear: Normal Nose: Normal Throat: Other (THYROMEGALY) Respiratory: Wheezes Cardiovascular: Tachycardia : Normal Auscultation: Bowel Sounds: Normal Tenderness: Normal Skin: Normal Musculoskeletal: Back:Lumbar Psychiatric: Anxiety Affect: Anxious Speech Pattern: Clear, Appropriate - Laboratory and Diagnostics Result Diagrams: 07/17/16 05:30 07/17/16 05:30 Labs: 07/16/16 10:16 Sputum - Expectorated Sputum Sputum Culture - Preliminary 07/16/16 10:16 Sputum - Expectorated Sputum - Final 07/14/16 09:11 Blood Blood Culture - Preliminary 07/14/16 10:43 Urine,[place] Urine Culture - Final Escherichia Coli Laboratory WBC 9.2 X10^3/uL (3.6-10.0) 07/17/16 05:30 RBC 5.47 X10^6/uL (3.5-5.4) H 07/17/16 05:30 Hgb 12.1 g/dL (12.0-16.0) 07/17/16 05:30 Hct 37.1 % (36.0-47.0) 07/17/16 05:30 MCV 67.8 fL (80.0-100.0) L 07/17/16 05:30 MCH 22.2 pg (27.0-34.0) L 07/17/16 05:30 MCHC 32.7 g/dL (33.0-35.0) L 07/17/16 05:30 RDW 16.1 % (11.6-16.5) 07/17/16 05:30 Plt Count 200 X10^3/uL (150.0-450.0) 07/17/16 05:30 Plt Count Comment Adequate (ADEQUATE) 07/17/16 05:30 MPV 9.7 fL (7.4-11.0) 07/17/16 05:30 Neut % 52.3 % (42.0-75.0) 07/17/16 05:30 Lymph % 35.2 % (21.0-51.0) 07/17/16 05:30 [place] % 9.6 % (0.0-13.0) 07/17/16 05:30 Eos % 1.8 % (0.9-2.9) 07/17/16 05:30 Baso % 1.1 % (0.2-1.0) H 07/17/16 05:30 Neut # 4.8 x10^3/uL (2.2-4.8) 07/17/16 05:30 Lymph # 3.3 X10^3/uL (1.3-2.9) H 07/17/16 05:30 [place] # 0.9 x10^3/uL (0.3-0.8) H 07/17/16 05:30 Eos # 0.2 x10^3/uL (0.0-0.2) 07/17/16 05:30 Baso # 0.1 X10^3/uL (0.0-0.1) 07/17/16 05:30 Absolute Nucleated RBC 0.1 /100WBC 07/17/16 05:30 Plt Morphology Comment Normal (NORMAL) 07/17/16 05:30 RBC Morphology Abnormal (NORMAL) A 07/17/16 05:30 Hypochromasia 1+ A 07/17/16 05:30 Microcytosis 1+ A 07/17/16 05:30 D-Dimer 2030 ng/mL (0-400) H* 07/14/16 06:10 Sample Site Rr 07/14/16 12:45 ABG pH 7.330 (7.35-7.45) L 07/14/16 12:45 ABG pCO2 53.0 mmHg (35.0-45.0) H* 07/14/16 12:45 ABG pO2 70.0 mmHg (80.0-100.0) L 07/14/16 12:45 ABG HCO3 27.9 mmol/L (22-26) H 07/14/16 12:45 ABG O2 Saturation 92.0 % (90-100) 07/14/16 12:45 ABG Base Excess 1.1 mmol/L (-2.0-2.0) 07/14/16 12:45 Adan Test Pos 07/14/16 12:45 A-a Gradient 363.0 mmHg 07/14/16 12:45 FiO2 70.000 07/14/16 12:45 Blood Gas Comments Pt [facility]iel [email or web address] 07/14/16 12:45 Sodium 144 mmol/L (136-145) 07/17/16 05:30 Corrected Sodium TNP 07/17/16 05:30 Potassium 4.3 mmol/L (3.5-5.1) 07/17/16 05:30 Chloride 106 mmol/L (98-107) 07/17/16 05:30 Carbon Dioxide 33.5 mmol/L (21-32) H 07/17/16 05:30 BUN 14 mg/dL (7-18) 07/17/16 05:30 Creatinine 0.76 mg/dL (0.55-1.02) 07/17/16 05:30 Est GFR (MDRD) Af Amer > 60 (>60) 07/17/16 05:30 Est GFR (MDRD) Non-Af > 60 (>60) 07/17/16 05:30 Glucose 95 mg/dL (65-99) 07/17/16 05:30 Lactic Acid 3.1 mmol/L (0.4-2.0) H 07/14/16 08:38 Calcium 8.7 mg/dL (8.5-10.1) 07/17/16 05:30 Corrected Calcium 9.7 mg/dL (8.5-10.1) 07/17/16 05:30 Total Bilirubin 0.30 mg/dL (0.2-1.0) 07/17/16 05:30 AST 17 Units/L (15-37) 07/17/16 05:30 ALT 30 Units/L (12-78) 07/17/16 05:30 Alkaline Phosphatase 82 Units/L (46-116) 07/17/16 05:30 Creatine Kinase 212 Units/L (26-192) H 07/14/16 06:10 CK-MB (CK-2) 1.1 ng/mL (0-4.0) 07/14/16 06:10 CK/CKMB % Calc 0.5 % (<4) 07/14/16 06:10 Troponin I < 0.02 ng/mL (0-1.5) 07/14/16 06:10 Total Protein 7.2 g/dL (6.4-8.2) 07/17/16 05:30 Albumin 2.7 g/dL (3.4-5.0) L 07/17/16 05:30 Globulin 4.5 g/dL (2.5-4.5) 07/17/16 05:30 Albumin/Globulin Ratio 0.6 Ratio (1.1-2.1) L 07/17/16 05:30 Free T4 1.19 ng/dL (0.76-1.46) 07/15/16 05:30 TSH 3rd Generation 0.312 uIU/mL (0.358-3.74) L 07/15/16 05:30 Specimen Type Clean catch urine 07/14/16 10:43 Urine Color Yellow (YELLOW) 07/14/16 10:43 Urine Appearance Hazy (CLEAR) 07/14/16 10:43 Urine pH 5.0 (5.0 - 8.0) 07/14/16 10:43 Ur Specific [place] 1.030 (1.000-1.030) 07/14/16 10:43 Urine Protein 3+ (NEGATIVE) 07/14/16 10:43 Urine Glucose (UA) 1+ (NEGATIVE) 07/14/16 10:43 Urine Ketones Negative (NEGATIVE) 07/14/16 10:43 Urine Occult Blood 2+ (NEGATIVE) 07/14/16 10:43 Urine Nitrite Positive (NEGATIVE) 07/14/16 10:43 Urine Bilirubin Negative (NEGATIVE) 07/14/16 10:43 Urine Urobilinogen Normal (NORMAL) 07/14/16 10:43 Ur Leukocyte Esterase 1+ (NEGATIVE) 07/14/16 10:43 Urine RBC 6-8 /HPF (NEGATIVE) 07/14/16 10:43 Urine WBC 8-10 /HPF (NEGATIVE) 07/14/16 10:43 Ur Squamous Epith Cells Few /HPF (NEGATIVE) 07/14/16 10:43 Urine Bacteria Trace /HPF (NEGATIVE) 07/14/16 10:43 Ur Culture Indicated? Yes/culture set up 07/14/16 10:43 - Plan (1) Respiratory distress, acute Status: Acute Plan: IMPROVING RESPIRATORY DISTRESS, UNABLE TO WEAN OFF BIPAP IV STEROIDS, RESP THERAPY,. REPEAT AM CXR, LASIX 40MG IV (2) Asthma exacerbation Status: Inactive Plan: RESP CARE, IV STEROIDS (3) Hypertension Status: Acute Qualifiers: Hypertension type: H Plan: BP CONTROL, CARDIAC MONITORING (4) COPD (chronic obstructive pulmonary disease) Status: Acute Qualifiers: COPD type: C Chronic bronchitis type: C Emphysema type: E (5) Thyroid goiter Status: Chronic Plan: CT REPORT ON CHART, [address], US THYROID. PLAN FOR PFT R/O RESTRICTED AIRWAY (6) Acute on chronic respiratory failure with hypercapnia Status: Acute Plan: CONITNUE RESP CARE, AM CXR, PFT. CONSULT [facility] FOR RESP SERVICES AT HOME, CPAP/TRILOGY THERAPY
--- NOTE | 2016-07-17 13:16 | RAD ---
HISTORY: Shortness of breath Study: Single view of the chest. Comparison: 07/16/2016 Findings: The cardiomediastinal silhouette is normal. No focal consolidations, pleural effusions or pneumothor ax. Osseous structures demonstrate no acute abnormality. IMPRESSION: 1. No acute cardiopulmonary process. Reported By:
[2016-07-17] MEDS: LASIX IVP SCH ×2 (14:03→20:24)
[2016-07-17] MEDS: NS + KCL 20 MEQ/L 1,000 ML IV SCH ×2 (17:26→20:00)
[2016-07-17] MEDS: NEBIVOLOL HCL 5 MG PO SCH (17:28)
[2016-07-17] MEDS: COLACE CAP 100 MG PO SCH (20:24)
[2016-07-17] MEDS: MILK OF MAGNESIA PO SCH (20:25)
[2016-07-17] MEDS: TUSSIONEX PENNKINETIC SUSP PO PRN (20:25)
[2016-07-18 05:49] LABS: BASOPHILS % (AUTO) 0.4 % (0.2-1.0); EOSINOPHILS # (AUTO) 0.2 x10^3/uL (0.0-0.2); EOSINOPHILS % (AUTO) 1.9 % (0.9-2.9); HEMATOCRIT 39.8 % (36.0-47.0); LYMPHOCYTES # (AUTO) 3.4 X10^3/uL (1.3-2.9); LYMPHOCYTES % (AUTO) 33.2 % (21.0-51.0); MEAN CORPUSCULAR HEMOGLOBIN 22.5 pg (27.0-34.0); MEAN CORPUSCULAR HGB CONC 32.6 g/dL (33.0-35.0); MEAN PLATELET VOLUME 9.5 fL (7.4-11.0); MONOCYTES # (AUTO) 0.9 x10^3/uL (0.3-0.8); MONOCYTES % (AUTO) 8.9 % (0.0-13.0); NEUTROPHILS # (AUTO) 5.8 x10^3/uL (2.2-4.8); NEUTROPHILS % (AUTO) 55.6 % (42.0-75.0); PLATELET COUNT 219 X10^3/uL (150.0-450.0); RED BLOOD COUNT 5.77 X10^6/uL (3.5-5.4); RED CELL DISTRIBUTION WIDTH 15.6 % (11.6-16.5); WHITE BLOOD COUNT 10.4 X10^3/uL (3.6-10.0)
[2016-07-18 05:55] LABS: ALANINE AMINOTRANSFERASE 28 Units/L (12-78); ALBUMIN 2.9 g/dL (3.4-5.0); ALKALINE PHOSPHATASE 89 Units/L (46-116); ASPARTATE AMINO TRANSFERASE 22 Units/L (15-37); BLOOD UREA NITROGEN 16 mg/dL (7-18); CALCIUM 9.2 mg/dL (8.5-10.1); CARBON DIOXIDE 33.8 mmol/L (21-32); CHLORIDE 102 mmol/L (98-107); COR CA(FOR HYPOALB) 10.1 mg/dL (8.5-10.1); GLUCOSE 107 mg/dL (65-99); SODIUM 140 mmol/L (136-145); TOTAL PROTEIN 7.6 g/dL (6.4-8.2); eGFR BLACK RACES > 60 (>60); eGFR NON BLACK RACES > 60 (>60)
[2016-07-18 07:04] LABS: HYPOCHROMASIA 1+; MICROCYTOSIS 1+; PLATELET MORPHOLOGY COMMENT NORMAL (NORMAL)
[2016-07-18] MEDS: PROVENTIL NEB TX 0.083% 2.5MG/ 3ML NEB SCH ×4 (08:47→20:45)
[2016-07-18] MEDS: PULMICORT NEB TX 0.5 MG NEB SCH ×2 (08:47→20:45)
[2016-07-18] MEDS: ROCEPHIN VIAL 1 GM 1 GM in NS 50 ML IV + SPIKE MINIBAG* 50 ML IV SCH (09:42)
[2016-07-18] MEDS: PROTONIX INJ 40 MG VIAL IVP SCH (09:42)
[2016-07-18] MEDS: LOVENOX INJ 40 MG SYR SC SCH (09:42)
--- NOTE | 2016-07-18 12:56 | PCM.PROG ---
Progress Note - Progress Note for Day of Date: 07/18/16 - Subjective Subjective: 60 BF ADMITTED ON 07/14/2016 WITH ACUTE RESP DISTRESS WITH PULMONARY EDEMA. ON BIPAP. PT HAS THYROMEGALY FINDING ON CT CHEST, CONFIRMED WITH US. CONITNUE CURRENT MEDICATIONS, IV ATBX, RESP THERAPY, ENCOURAGE ORAL HYDRATION, STRICT I & O'S REPEAT AM ABG, CXR Q AM - Past Medical Family Social History Past Med/Fam/Surg Hx: No changes since H&P Allergies: Allergies No Known Drug Allergy Allergy (Verified 07/14/16 10:46) - Review of Systems ROS: No change since H&P - Vital Signs and I&O's Vital Signs: Temperature 98.1 F Pulse Rate [Brachial] 79 Pulse Rate 64 Respiratory Rate 15 Blood Pressure [Right Arm] 130/80 O2 Sat by Pulse Oximetry 96 Intake and Output: Intake & Output 07/16/16 07/17/16 07/18/16 07/19/16 11:59 11:59 11:59 11:59 Intake Total 2240 2356 2744 Output Total 4900 1900 4800 Balance -2660 456 -2056 - Physical Exam Oriented: Normal, Time, Person, Place Eyes: Normal Ear: Normal Nose: Normal Throat: Other (THYROMEGALY) Respiratory: Wheezes Cardiovascular: Tachycardia : Normal Auscultation: Bowel Sounds: Normal Tenderness: Normal Skin: Normal Musculoskeletal: Back:Lumbar Psychiatric: Anxiety Affect: Anxious Speech Pattern: Clear, Appropriate - Laboratory and Diagnostics Result Diagrams: 07/18/16 03:50 07/18/16 03:50 Labs: 07/16/16 10:16 Sputum - Expectorated Sputum Sputum Culture - Final 07/16/16 10:16 Sputum - Expectorated Sputum - Final 07/14/16 09:11 Blood Blood Culture - Preliminary 07/14/16 10:43 Urine,[place] Urine Culture - Final Escherichia Coli Laboratory WBC 10.4 X10^3/uL (3.6-10.0) H 07/18/16 03:50 RBC 5.77 X10^6/uL (3.5-5.4) H 07/18/16 03:50 Hgb 13.0 g/dL (12.0-16.0) 07/18/16 03:50 Hct 39.8 % (36.0-47.0) 07/18/16 03:50 MCV 69.0 fL (80.0-100.0) L 07/18/16 03:50 MCH 22.5 pg (27.0-34.0) L 07/18/16 03:50 MCHC 32.6 g/dL (33.0-35.0) L 07/18/16 03:50 RDW 15.6 % (11.6-16.5) 07/18/16 03:50 Plt Count 219 X10^3/uL (150.0-450.0) 07/18/16 03:50 Plt Count Comment Adequate (ADEQUATE) 07/18/16 03:50 MPV 9.5 fL (7.4-11.0) 07/18/16 03:50 Neut % 55.6 % (42.0-75.0) 07/18/16 03:50 Lymph % 33.2 % (21.0-51.0) 07/18/16 03:50 [place] % 8.9 % (0.0-13.0) 07/18/16 03:50 Eos % 1.9 % (0.9-2.9) 07/18/16 03:50 Baso % 0.4 % (0.2-1.0) 07/18/16 03:50 Neut # 5.8 x10^3/uL (2.2-4.8) H 07/18/16 03:50 Lymph # 3.4 X10^3/uL (1.3-2.9) H 07/18/16 03:50 [place] # 0.9 x10^3/uL (0.3-0.8) H 07/18/16 03:50 Eos # 0.2 x10^3/uL (0.0-0.2) 07/18/16 03:50 Baso # 0.0 X10^3/uL (0.0-0.1) 07/18/16 03:50 Absolute Nucleated RBC 0.1 /100WBC 07/18/16 03:50 Plt Morphology Comment Normal (NORMAL) 07/18/16 03:50 RBC Morphology Abnormal (NORMAL) A 07/18/16 03:50 Hypochromasia 1+ A 07/18/16 03:50 Microcytosis 1+ A 07/18/16 03:50 D-Dimer 2030 ng/mL (0-400) H* 07/14/16 06:10 Sample Site Rr 07/14/16 12:45 ABG pH 7.330 (7.35-7.45) L 07/14/16 12:45 ABG pCO2 53.0 mmHg (35.0-45.0) H* 07/14/16 12:45 ABG pO2 70.0 mmHg (80.0-100.0) L 07/14/16 12:45 ABG HCO3 27.9 mmol/L (22-26) H 07/14/16 12:45 ABG O2 Saturation 92.0 % (90-100) 07/14/16 12:45 ABG Base Excess 1.1 mmol/L (-2.0-2.0) 07/14/16 12:45 Adan Test Pos 07/14/16 12:45 A-a Gradient 363.0 mmHg 07/14/16 12:45 FiO2 70.000 07/14/16 12:45 Blood Gas Comments Pt [facility]iel [email or web address] 07/14/16 12:45 Sodium 140 mmol/L (136-145) 07/18/16 03:50 Corrected Sodium TNP 07/18/16 03:50 Potassium 4.1 mmol/L (3.5-5.1) 07/18/16 03:50 Chloride 102 mmol/L (98-107) 07/18/16 03:50 Carbon Dioxide 33.8 mmol/L (21-32) H 07/18/16 03:50 BUN 16 mg/dL (7-18) 07/18/16 03:50 Creatinine 0.90 mg/dL (0.55-1.02) 07/18/16 03:50 Est GFR (MDRD) Af Amer > 60 (>60) 07/18/16 03:50 Est GFR (MDRD) Non-Af > 60 (>60) 07/18/16 03:50 Glucose 107 mg/dL (65-99) H 07/18/16 03:50 Lactic Acid 3.1 mmol/L (0.4-2.0) H 07/14/16 08:38 Calcium 9.2 mg/dL (8.5-10.1) 07/18/16 03:50 Corrected Calcium 10.1 mg/dL (8.5-10.1) 07/18/16 03:50 Total Bilirubin 0.50 mg/dL (0.2-1.0) 07/18/16 03:50 AST 22 Units/L (15-37) 07/18/16 03:50 ALT 28 Units/L (12-78) 07/18/16 03:50 Alkaline Phosphatase 89 Units/L (46-116) 07/18/16 03:50 Creatine Kinase 212 Units/L (26-192) H 07/14/16 06:10 CK-MB (CK-2) 1.1 ng/mL (0-4.0) 07/14/16 06:10 CK/CKMB % Calc 0.5 % (<4) 07/14/16 06:10 Troponin I < 0.02 ng/mL (0-1.5) 07/14/16 06:10 Total Protein 7.6 g/dL (6.4-8.2) 07/18/16 03:50 Albumin 2.9 g/dL (3.4-5.0) L 07/18/16 03:50 Globulin 4.7 g/dL (2.5-4.5) H 07/18/16 03:50 Albumin/Globulin Ratio 0.6 Ratio (1.1-2.1) L 07/18/16 03:50 Free T4 1.19 ng/dL (0.76-1.46) 07/15/16 05:30 TSH 3rd Generation 0.312 uIU/mL (0.358-3.74) L 07/15/16 05:30 Specimen Type Clean catch urine 07/14/16 10:43 Urine Color Yellow (YELLOW) 07/14/16 10:43 Urine Appearance Hazy (CLEAR) 07/14/16 10:43 Urine pH 5.0 (5.0 - 8.0) 07/14/16 10:43 Ur Specific [place] 1.030 (1.000-1.030) 07/14/16 10:43 Urine Protein 3+ (NEGATIVE) 07/14/16 10:43 Urine Glucose (UA) 1+ (NEGATIVE) 07/14/16 10:43 Urine Ketones Negative (NEGATIVE) 07/14/16 10:43 Urine Occult Blood 2+ (NEGATIVE) 07/14/16 10:43 Urine Nitrite Positive (NEGATIVE) 07/14/16 10:43 Urine Bilirubin Negative (NEGATIVE) 07/14/16 10:43 Urine Urobilinogen Normal (NORMAL) 07/14/16 10:43 Ur Leukocyte Esterase 1+ (NEGATIVE) 07/14/16 10:43 Urine RBC 6-8 /HPF (NEGATIVE) 07/14/16 10:43 Urine WBC 8-10 /HPF (NEGATIVE) 07/14/16 10:43 Ur Squamous Epith Cells Few /HPF (NEGATIVE) 07/14/16 10:43 Urine Bacteria Trace /HPF (NEGATIVE) 07/14/16 10:43 Ur Culture Indicated? Yes/culture set up 07/14/16 10:43 - Plan (1) Respiratory distress, acute Status: Acute Plan: IMPROVING RESPIRATORY DISTRESS, COTINUE BIPAP, RESP THERAPY. STEROIDS, IV ATBX. REPEAT AM CXR, LASIX 40MG IV (2) Asthma exacerbation Status: Inactive Plan: RESP CARE, IV STEROIDS (3) Hypertension Status: Acute Qualifiers: Hypertension type: H Plan: BP CONTROL, CARDIAC MONITORING (4) COPD (chronic obstructive pulmonary disease) Status: Acute Qualifiers: COPD type: C Chronic bronchitis type: C Emphysema type: E (5) Thyroid goiter Status: Chronic Plan: CT REPORT ON CHART, S FREET4, US THYROID. PLAN FOR PFT R/O RESTRICTED AIRWAY (6) Acute on chronic respiratory failure with hypercapnia Status: Acute Plan: CONITNUE RESP CARE, AM CXR, PFT. CONSULT [facility] HOME, CPAP/TRILOGY THERAPY
[2016-07-18] MEDS: NS + KCL 20 MEQ/L 1,000 ML IV SCH (20:45)
[2016-07-18] MEDS: MILK OF MAGNESIA PO SCH (21:00)
[2016-07-18] MEDS: COLACE CAP 100 MG PO SCH (22:40)
[2016-07-19] MEDS: TUSSIONEX PENNKINETIC SUSP PO PRN ×2 (01:05→22:00)
[2016-07-19 04:41] LABS: ABG BASE EXCESS 7.6 mmol/L (-2.0-2.0)
[2016-07-19 04:42] LABS: ABG ALLEN TEST POS; ABG HCO3 33.2 mmol/L (22-26)
[2016-07-19 06:12] LABS: ALBUMIN 2.7 g/dL (3.4-5.0); CREATININE 0.78 mg/dL (0.55-1.02); SODIUM 139 mmol/L (136-145); TOTAL PROTEIN 7.2 g/dL (6.4-8.2); eGFR BLACK RACES > 60 (>60); eGFR NON BLACK RACES > 60 (>60)
[2016-07-19 06:14] LABS: BASOPHILS % (AUTO) 0.2 % (0.2-1.0); EOSINOPHILS # (AUTO) 0.3 x10^3/uL (0.0-0.2); EOSINOPHILS % (AUTO) 2.4 % (0.9-2.9); HEMATOCRIT 37.3 % (36.0-47.0); LYMPHOCYTES # (AUTO) 3.5 X10^3/uL (1.3-2.9); LYMPHOCYTES % (AUTO) 29.4 % (21.0-51.0); MEAN CORPUSCULAR HEMOGLOBIN 21.9 pg (27.0-34.0); MEAN CORPUSCULAR HGB CONC 32.2 g/dL (33.0-35.0); MEAN CORPUSCULAR VOLUME 68.1 fL (80.0-100.0); MEAN PLATELET VOLUME 9.4 fL (7.4-11.0); MONOCYTES # (AUTO) 1.1 x10^3/uL (0.3-0.8); MONOCYTES % (AUTO) 9.1 % (0.0-13.0); NEUTROPHILS % (AUTO) 58.9 % (42.0-75.0); PLATELET COUNT 239 X10^3/uL (150.0-450.0); RED BLOOD COUNT 5.48 X10^6/uL (3.5-5.4); RED CELL DISTRIBUTION WIDTH 15.6 % (11.6-16.5); WHITE BLOOD COUNT 11.9 X10^3/uL (3.6-10.0)
[2016-07-19 06:27] LABS: ALANINE AMINOTRANSFERASE 21 Units/L (12-78); ALKALINE PHOSPHATASE 84 Units/L (46-116); ASPARTATE AMINO TRANSFERASE 18 Units/L (15-37); BLOOD UREA NITROGEN 10 mg/dL (7-18); CARBON DIOXIDE 28.6 mmol/L (21-32); CHLORIDE 103 mmol/L (98-107); GLUCOSE 104 mg/dL (65-99)
[2016-07-19 06:30] LABS: CALCIUM 8.8 mg/dL (8.5-10.1); COR CA(FOR HYPOALB) 9.8 mg/dL (8.5-10.1)
[2016-07-19 06:41] LABS: HYPOCHROMASIA 1+; MICROCYTOSIS 1+; PLATELET MORPHOLOGY COMMENT NORMAL (NORMAL)
--- NOTE | 2016-07-19 07:45 | RAD ---
HISTORY: Respiratory distress Study: Single view of the chest. Comparison: 07/17/2016 Findings: Cardiomegaly. No focal consolidations, pleural effusions or pneumothorax. Osseous structures demonst rate no acute abnormality. IMPRESSION: 1. No acute cardiopulmonary process. Reported By:
[2016-07-19] MEDS: LOVENOX INJ 40 MG SYR SC SCH (08:15)
[2016-07-19] MEDS: PROTONIX INJ 40 MG VIAL IVP SCH (08:15)
[2016-07-19] MEDS: ROCEPHIN VIAL 1 GM 1 GM in NS 50 ML IV + SPIKE MINIBAG* 50 ML IV SCH (08:15)
[2016-07-19] MEDS: PROVENTIL NEB TX 0.083% 2.5MG/ 3ML NEB SCH ×4 (09:24→21:15)
[2016-07-19] MEDS: PULMICORT NEB TX 0.5 MG NEB SCH ×2 (09:24→21:15)
[2016-07-19] MEDS: MILK OF MAGNESIA PO SCH (21:00)
[2016-07-19] MEDS: COLACE CAP 100 MG PO SCH (21:59)
[2016-07-20 05:32] LABS: BASOPHILS # (AUTO) 0.1 X10^3/uL (0.0-0.1); BASOPHILS % (AUTO) 0.6 % (0.2-1.0); EOSINOPHILS # (AUTO) 0.4 x10^3/uL (0.0-0.2); EOSINOPHILS % (AUTO) 3.5 % (0.9-2.9); HEMATOCRIT 35.7 % (36.0-47.0); HEMOGLOBIN 11.7 g/dL (12.0-16.0); LYMPHOCYTES # (AUTO) 3.2 X10^3/uL (1.3-2.9); LYMPHOCYTES % (AUTO) 28.6 % (21.0-51.0); MEAN CORPUSCULAR HEMOGLOBIN 22.5 pg (27.0-34.0); MEAN CORPUSCULAR HGB CONC 32.9 g/dL (33.0-35.0); MEAN CORPUSCULAR VOLUME 68.5 fL (80.0-100.0); MEAN PLATELET VOLUME 9.5 fL (7.4-11.0); MONOCYTES # (AUTO) 0.9 x10^3/uL (0.3-0.8); MONOCYTES % (AUTO) 8.2 % (0.0-13.0); NEUTROPHILS # (AUTO) 6.6 x10^3/uL (2.2-4.8); NEUTROPHILS % (AUTO) 59.1 % (42.0-75.0); PLATELET COUNT 226 X10^3/uL (150.0-450.0); RED BLOOD COUNT 5.21 X10^6/uL (3.5-5.4); RED CELL DISTRIBUTION WIDTH 15.6 % (11.6-16.5); WHITE BLOOD COUNT 11.2 X10^3/uL (3.6-10.0)
[2016-07-20 05:37] LABS: ALANINE AMINOTRANSFERASE 24 Units/L (12-78); ALBUMIN 2.7 g/dL (3.4-5.0); ALKALINE PHOSPHATASE 85 Units/L (46-116); ASPARTATE AMINO TRANSFERASE 19 Units/L (15-37); BLOOD UREA NITROGEN 11 mg/dL (7-18); CALCIUM 8.9 mg/dL (8.5-10.1); CARBON DIOXIDE 30.8 mmol/L (21-32); CHLORIDE 104 mmol/L (98-107); COR CA(FOR HYPOALB) 9.9 mg/dL (8.5-10.1); CREATININE 0.91 mg/dL (0.55-1.02); GLUCOSE 104 mg/dL (65-99); SODIUM 141 mmol/L (136-145); eGFR BLACK RACES > 60 (>60); eGFR NON BLACK RACES > 60 (>60)
[2016-07-20 06:23] LABS: HYPOCHROMASIA 1+; PLATELET MORPHOLOGY COMMENT NORMAL (NORMAL)
[2016-07-20 06:24] LABS: MICROCYTOSIS 1+
--- NOTE | 2016-07-20 07:22 | RAD ---
HISTORY: Congestive heart failure Study: Single view of the chest. Comparison: 07/19/2016 Findings: Stable cardiomegaly. No focal consolidations, pleural effusions or pneumothorax. Osseous structures demonstrate no acute abnormality. IMPRESSION: 1. No acute cardiopulmonary process. 2. It should be noted that in the absence of a change in clinical status or intervening procedure, d aily chest x-ray has not been shown to affect outcomes in hospitalized patients. [email or web address] Reported By:
[2016-07-20] MEDS: ROCEPHIN VIAL 1 GM 1 GM in NS 50 ML IV + SPIKE MINIBAG* 50 ML IV SCH (09:12)
[2016-07-20] MEDS: PROTONIX INJ 40 MG VIAL IVP SCH (09:12)
[2016-07-20] MEDS: LOVENOX INJ 40 MG SYR SC SCH (09:12)
[2016-07-20] MEDS: PROVENTIL NEB TX 0.083% 2.5MG/ 3ML NEB SCH ×4 (09:27→21:56)
[2016-07-20] MEDS: PULMICORT NEB TX 0.5 MG NEB SCH ×2 (09:27→21:56)
[2016-07-20] MEDS: NS + KCL 20 MEQ/L 1,000 ML IV SCH ×2 (19:09)
[2016-07-20] MEDS: MILK OF MAGNESIA PO SCH (21:00)
[2016-07-20] MEDS: COLACE CAP 100 MG PO SCH (22:15)
[2016-07-21] MEDS: NS + KCL 20 MEQ/L 1,000 ML IV SCH ×2 (02:00→17:54)
[2016-07-21 05:42] LABS: BASOPHILS # (AUTO) 0.1 X10^3/uL (0.0-0.1); BASOPHILS % (AUTO) 0.7 % (0.2-1.0); EOSINOPHILS # (AUTO) 0.4 x10^3/uL (0.0-0.2); HEMATOCRIT 35.4 % (36.0-47.0); HEMOGLOBIN 11.4 g/dL (12.0-16.0); LYMPHOCYTES # (AUTO) 3.1 X10^3/uL (1.3-2.9); LYMPHOCYTES % (AUTO) 26.6 % (21.0-51.0); MEAN CORPUSCULAR HEMOGLOBIN 22.2 pg (27.0-34.0); MEAN CORPUSCULAR HGB CONC 32.2 g/dL (33.0-35.0); MEAN CORPUSCULAR VOLUME 68.8 fL (80.0-100.0); MEAN PLATELET VOLUME 9.5 fL (7.4-11.0); MONOCYTES % (AUTO) 8.4 % (0.0-13.0); NEUTROPHILS # (AUTO) 7.1 x10^3/uL (2.2-4.8); NEUTROPHILS % (AUTO) 61.3 % (42.0-75.0); PLATELET COUNT 223 X10^3/uL (150.0-450.0); RED BLOOD COUNT 5.14 X10^6/uL (3.5-5.4); RED CELL DISTRIBUTION WIDTH 15.6 % (11.6-16.5); WHITE BLOOD COUNT 11.6 X10^3/uL (3.6-10.0)
[2016-07-21 05:47] LABS: ALANINE AMINOTRANSFERASE 22 Units/L (12-78); ALBUMIN 2.6 g/dL (3.4-5.0); ALKALINE PHOSPHATASE 79 Units/L (46-116); ASPARTATE AMINO TRANSFERASE 18 Units/L (15-37); BLOOD UREA NITROGEN 13 mg/dL (7-18); CALCIUM 8.9 mg/dL (8.5-10.1); CARBON DIOXIDE 28.5 mmol/L (21-32); CHLORIDE 106 mmol/L (98-107); COR NA(FOR HYPERGLY) 142 mmol/L (136-145); CREATININE 0.78 mg/dL (0.55-1.02); GLUCOSE 120 mg/dL (65-99); SODIUM 142 mmol/L (136-145); TOTAL PROTEIN 6.7 g/dL (6.4-8.2); eGFR BLACK RACES > 60 (>60); eGFR NON BLACK RACES > 60 (>60)
[2016-07-21 06:15] LABS: HYPOCHROMASIA 1+; MICROCYTOSIS 1+; PLATELET MORPHOLOGY COMMENT NORMAL (NORMAL)
[2016-07-21] MEDS: ROCEPHIN VIAL 1 GM 1 GM in NS 50 ML IV + SPIKE MINIBAG* 50 ML IV SCH (08:43)
[2016-07-21] MEDS: LOVENOX INJ 40 MG SYR SC SCH (08:44)
[2016-07-21] MEDS: PROTONIX INJ 40 MG VIAL IVP SCH (08:44)
[2016-07-21] MEDS: PROVENTIL NEB TX 0.083% 2.5MG/ 3ML NEB SCH ×4 (09:16→21:36)
[2016-07-21] MEDS: PULMICORT NEB TX 0.5 MG NEB SCH ×2 (09:17→21:37)
--- NOTE | 2016-07-21 13:46 | PCM.PROG ---
Progress Note - Progress Note for Day of Date: 07/21/16 - Subjective Subjective: 60 BF ADMITTED ON 07/14/2016 WITH ACUTE RESP DISTRESS WITH PULMONARY EDEMA. MUCH IMPROVED THIS AM, TOLERATING ROOM AIR SITTING UP IN CHAIR. PT CONTINUE WITH MODERATE PRODUCTIVE COUGH AND THORNTON, BUT SIGNIFICANTLY IMPROVED. PLAN TO CONSULT PT, OT - Past Medical Family Social History Past Med/Fam/Surg Hx: No changes since H&P Allergies: Allergies No Known Drug Allergy Allergy (Verified 07/14/16 10:46) - Review of Systems ROS: No change since H&P - Vital Signs and I&O's Vital Signs: Temperature 98.2 F Pulse Rate [Brachial] 92 Pulse Rate 85 Respiratory Rate 18 Blood Pressure [Left Arm] 148/74 Blood Pressure [Right Arm] 100/55 O2 Sat by Pulse Oximetry 98 Intake and Output: Intake & Output 07/19/16 07/20/16 07/21/16 07/22/16 11:59 11:59 11:59 11:59 Intake Total 2112 1709 1738 Output Total 1400 1500 900 Balance 712 209 838 - Physical Exam Oriented: Normal, Time, Person, Place Eyes: Normal Ear: Normal Nose: Normal Throat: Other (THYROMEGALY) Respiratory: Wheezes Cardiovascular: Tachycardia : Normal Auscultation: Bowel Sounds: Normal Tenderness: Normal Skin: Normal Musculoskeletal: Back:Lumbar Psychiatric: Anxiety Affect: Anxious Speech Pattern: Clear, Appropriate - Laboratory and Diagnostics Result Diagrams: 07/21/16 03:50 07/21/16 03:50 Labs: 07/14/16 09:11 Blood Blood Culture - Final 07/16/16 10:16 Sputum - Expectorated Sputum Sputum Culture - Final 07/16/16 10:16 Sputum - Expectorated Sputum - Final 07/14/16 10:43 Urine,[place] Urine Culture - Final Escherichia Coli Laboratory WBC 11.6 X10^3/uL (3.6-10.0) H 07/21/16 03:50 RBC 5.14 X10^6/uL (3.5-5.4) 07/21/16 03:50 Hgb 11.4 g/dL (12.0-16.0) L 07/21/16 03:50 Hct 35.4 % (36.0-47.0) L 07/21/16 03:50 MCV 68.8 fL (80.0-100.0) L 07/21/16 03:50 MCH 22.2 pg (27.0-34.0) L 07/21/16 03:50 MCHC 32.2 g/dL (33.0-35.0) L 07/21/16 03:50 RDW 15.6 % (11.6-16.5) 07/21/16 03:50 Plt Count 223 X10^3/uL (150.0-450.0) 07/21/16 03:50 Plt Count Comment Adequate (ADEQUATE) 07/21/16 03:50 MPV 9.5 fL (7.4-11.0) 07/21/16 03:50 Neut % 61.3 % (42.0-75.0) 07/21/16 03:50 Lymph % 26.6 % (21.0-51.0) 07/21/16 03:50 [place] % 8.4 % (0.0-13.0) 07/21/16 03:50 Eos % 3.0 % (0.9-2.9) H 07/21/16 03:50 Baso % 0.7 % (0.2-1.0) 07/21/16 03:50 Neut # 7.1 x10^3/uL (2.2-4.8) H 07/21/16 03:50 Lymph # 3.1 X10^3/uL (1.3-2.9) H 07/21/16 03:50 [place] # 1.0 x10^3/uL (0.3-0.8) H 07/21/16 03:50 Eos # 0.4 x10^3/uL (0.0-0.2) H 07/21/16 03:50 Baso # 0.1 X10^3/uL (0.0-0.1) 07/21/16 03:50 Absolute Nucleated RBC 0.0 /100WBC 07/21/16 03:50 Plt Morphology Comment Normal (NORMAL) 07/21/16 03:50 RBC Morphology Abnormal (NORMAL) A 07/21/16 03:50 Hypochromasia 1+ A 07/21/16 03:50 Microcytosis 1+ A 07/21/16 03:50 D-Dimer 2030 ng/mL (0-400) H* 07/14/16 06:10 Sample Site Rr 07/19/16 04:35 ABG pH 7.430 (7.35-7.45) 07/19/16 04:35 ABG pCO2 50.0 mmHg (35.0-45.0) H 07/19/16 04:35 ABG pO2 79.0 mmHg (80.0-100.0) L 07/19/16 04:35 ABG HCO3 33.2 mmol/L (22-26) H* 07/19/16 04:35 ABG O2 Saturation 96.0 % (90-100) 07/19/16 04:35 ABG Base Excess 7.6 mmol/L (-2.0-2.0) H 07/19/16 04:35 Adan Test Pos 07/19/16 04:35 A-a Gradient 8.0 mmHg 07/19/16 04:35 FiO2 21.000 07/19/16 04:35 Blood Gas Comments Patricio well ae 07/19/16 04:35 Sodium 142 mmol/L (136-145) 07/21/16 03:50 Corrected Sodium 142 mmol/L (136-145) 07/21/16 03:50 Potassium 4.1 mmol/L (3.5-5.1) 07/21/16 03:50 Chloride 106 mmol/L (98-107) 07/21/16 03:50 Carbon Dioxide 28.5 mmol/L (21-32) 07/21/16 03:50 BUN 13 mg/dL (7-18) 07/21/16 03:50 Creatinine 0.78 mg/dL (0.55-1.02) 07/21/16 03:50 Est GFR (MDRD) Af Amer > 60 (>60) 07/21/16 03:50 Est GFR (MDRD) Non-Af > 60 (>60) 07/21/16 03:50 Glucose 120 mg/dL (65-99) H 07/21/16 03:50 Lactic Acid 3.1 mmol/L (0.4-2.0) H 07/14/16 08:38 Calcium 8.9 mg/dL (8.5-10.1) 07/21/16 03:50 Corrected Calcium 10.0 mg/dL (8.5-10.1) 07/21/16 03:50 Total Bilirubin 0.20 mg/dL (0.2-1.0) 07/21/16 03:50 AST 18 Units/L (15-37) 07/21/16 03:50 ALT 22 Units/L (12-78) 07/21/16 03:50 Alkaline Phosphatase 79 Units/L (46-116) 07/21/16 03:50 Creatine Kinase 212 Units/L (26-192) H 07/14/16 06:10 CK-MB (CK-2) 1.1 ng/mL (0-4.0) 07/14/16 06:10 CK/CKMB % Calc 0.5 % (<4) 07/14/16 06:10 Troponin I < 0.02 ng/mL (0-1.5) 07/14/16 06:10 Total Protein 6.7 g/dL (6.4-8.2) 07/21/16 03:50 Albumin 2.6 g/dL (3.4-5.0) L 07/21/16 03:50 Globulin 4.1 g/dL (2.5-4.5) 07/21/16 03:50 Albumin/Globulin Ratio 0.6 Ratio (1.1-2.1) L 07/21/16 03:50 Free T4 1.19 ng/dL (0.76-1.46) 07/15/16 05:30 TSH 3rd Generation 0.312 uIU/mL (0.358-3.74) L 07/15/16 05:30 Specimen Type Clean catch urine 07/14/16 10:43 Urine Color Yellow (YELLOW) 07/14/16 10:43 Urine Appearance Hazy (CLEAR) 07/14/16 10:43 Urine pH 5.0 (5.0 - 8.0) 07/14/16 10:43 Ur Specific [place] 1.030 (1.000-1.030) 07/14/16 10:43 Urine Protein 3+ (NEGATIVE) 07/14/16 10:43 Urine Glucose (UA) 1+ (NEGATIVE) 07/14/16 10:43 Urine Ketones Negative (NEGATIVE) 07/14/16 10:43 Urine Occult Blood 2+ (NEGATIVE) 07/14/16 10:43 Urine Nitrite Positive (NEGATIVE) 07/14/16 10:43 Urine Bilirubin Negative (NEGATIVE) 07/14/16 10:43 Urine Urobilinogen Normal (NORMAL) 07/14/16 10:43 Ur Leukocyte Esterase 1+ (NEGATIVE) 07/14/16 10:43 Urine RBC 6-8 /HPF (NEGATIVE) 07/14/16 10:43 Urine WBC 8-10 /HPF (NEGATIVE) 07/14/16 10:43 Ur Squamous Epith Cells Few /HPF (NEGATIVE) 07/14/16 10:43 Urine Bacteria Trace /HPF (NEGATIVE) 07/14/16 10:43 Ur Culture Indicated? Yes/culture set up 07/14/16 10:43 - Plan (1) Respiratory distress, acute Status: Acute Plan: IMPROVING RESPIRATORY DISTRESS, PLAN TO CONSULT PT OT, CONTINUE IV ATBX. PLAN TO DC HOME ON TRILOGY (2) Asthma exacerbation Status: Inactive Plan: RESP CARE, IV STEROIDS (3) Hypertension Status: Acute Qualifiers: Hypertension type: H Plan: BP CONTROL, CARDIAC MONITORING (4) COPD (chronic obstructive pulmonary disease) Status: Acute Qualifiers: COPD type: C Chronic bronchitis type: C Emphysema type: E (5) Thyroid goiter Status: Chronic Plan: CT REPORT ON CHART, [place] [facility], US THYROID. PLAN FOR PFT R/O RESTRICTED AIRWAY (6) Acute on chronic respiratory failure with hypercapnia Status: Acute Plan: CONITNUE RESP CARE, AM CXR, PFT. CONSULT [facility] AT HOME, TRILOGY THERAPY
[2016-07-21] MEDS: COLACE CAP 100 MG PO SCH (21:41)
[2016-07-21] MEDS: MILK OF MAGNESIA PO SCH (21:42)
[2016-07-22] MEDS: NS + KCL 20 MEQ/L 1,000 ML IV SCH ×3 (04:44→17:53)
[2016-07-22 05:25] LABS: BASOPHILS # (AUTO) 0.1 X10^3/uL (0.0-0.1); BASOPHILS % (AUTO) 0.8 % (0.2-1.0); EOSINOPHILS # (AUTO) 0.4 x10^3/uL (0.0-0.2); EOSINOPHILS % (AUTO) 3.1 % (0.9-2.9); HEMATOCRIT 35.6 % (36.0-47.0); HEMOGLOBIN 11.4 g/dL (12.0-16.0); LYMPHOCYTES # (AUTO) 3.4 X10^3/uL (1.3-2.9); LYMPHOCYTES % (AUTO) 29.2 % (21.0-51.0); MEAN CORPUSCULAR VOLUME 68.8 fL (80.0-100.0); MONOCYTES % (AUTO) 8.7 % (0.0-13.0); NEUTROPHILS # (AUTO) 6.7 x10^3/uL (2.2-4.8); NEUTROPHILS % (AUTO) 58.2 % (42.0-75.0); PLATELET COUNT 199 X10^3/uL (150.0-450.0); RED BLOOD COUNT 5.17 X10^6/uL (3.5-5.4); RED CELL DISTRIBUTION WIDTH 15.5 % (11.6-16.5); WHITE BLOOD COUNT 11.5 X10^3/uL (3.6-10.0)
[2016-07-22 05:32] LABS: ALANINE AMINOTRANSFERASE 23 Units/L (12-78); ALBUMIN 2.7 g/dL (3.4-5.0); ALKALINE PHOSPHATASE 83 Units/L (46-116); ASPARTATE AMINO TRANSFERASE 24 Units/L (15-37); BLOOD UREA NITROGEN 9 mg/dL (7-18); CALCIUM 8.9 mg/dL (8.5-10.1); CARBON DIOXIDE 28.4 mmol/L (21-32); CHLORIDE 108 mmol/L (98-107); COR CA(FOR HYPOALB) 9.9 mg/dL (8.5-10.1); COR NA(FOR HYPERGLY) 144 mmol/L (136-145); CREATININE 0.76 mg/dL (0.55-1.02); GLUCOSE 115 mg/dL (65-99); SODIUM 144 mmol/L (136-145); TOTAL PROTEIN 6.9 g/dL (6.4-8.2); eGFR BLACK RACES > 60 (>60); eGFR NON BLACK RACES > 60 (>60)
[2016-07-22 06:01] LABS: HYPOCHROMASIA 1+; MICROCYTOSIS 1+; PLATELET MORPHOLOGY COMMENT NORMAL (NORMAL)
[2016-07-22] MEDS: LOVENOX INJ 40 MG SYR SC SCH (08:34)
[2016-07-22] MEDS: ROCEPHIN VIAL 1 GM 1 GM in NS 50 ML IV + SPIKE MINIBAG* 50 ML IV SCH (08:34)
[2016-07-22] MEDS: PROTONIX INJ 40 MG VIAL IVP SCH (08:34)
[2016-07-22] MEDS: PROVENTIL NEB TX 0.083% 2.5MG/ 3ML NEB SCH ×4 (09:39→21:10)
[2016-07-22] MEDS: PULMICORT NEB TX 0.5 MG NEB SCH ×2 (09:40→21:11)
--- NOTE | 2016-07-22 10:50 | PCM.PROG ---
Progress Note - Progress Note for Day of Date: 07/22/16 - Subjective Subjective: 60 BF ADMITTED ON 07/14/2016 WITH ACUTE RESP DISTRESS WITH PULMONARY EDEMA. MUCH IMPROVED THIS AM, TOLERATING ROOM AIR SITTING UP IN CHAIR. PT CONTINUE WITH MODERATE PRODUCTIVE COUGH AND THORNTON, BUT SIGNIFICANTLY IMPROVED. CHANGE TO FLOOR STATUS. CONTINUE PT, OT, DISCUSSED DC PLAN FOR THURSDAY OR THURSDAY IF PT CONTINUES TO IMPROVE - Past Medical Family Social History Past Med/Fam/Surg Hx: No changes since H&P Allergies: Allergies No Known Drug Allergy Allergy (Verified 07/14/16 10:46) - Review of Systems ROS: No change since H&P - Vital Signs and I&O's Vital Signs: Temperature 98.2 F Pulse Rate [Brachial] 83 Pulse Rate 98 Respiratory Rate 20 Blood Pressure [Left Arm] 105/75 Blood Pressure [Right Arm] 100/55 O2 Sat by Pulse Oximetry 99 Intake and Output: Intake & Output 07/19/16 07/20/16 07/21/16 07/22/16 11:59 11:59 11:59 11:59 Intake Total 2112 1709 1738 2009 Output Total 1400 1500 900 Balance 712 808 755 8515 - Physical Exam Oriented: Normal, Time, Person, Place Eyes: Normal Ear: Normal Nose: Normal Throat: Other (THYROMEGALY) Respiratory: Wheezes Cardiovascular: Tachycardia : Normal Auscultation: Bowel Sounds: Normal Tenderness: Normal Skin: Normal Musculoskeletal: Back:Lumbar Psychiatric: Anxiety Affect: Anxious Speech Pattern: Clear, Appropriate - Laboratory and Diagnostics Result Diagrams: 07/22/16 03:35 07/22/16 03:35 Labs: 07/14/16 09:11 Blood Blood Culture - Final 07/16/16 10:16 Sputum - Expectorated Sputum Sputum Culture - Final 07/16/16 10:16 Sputum - Expectorated Sputum - Final 07/14/16 10:43 Urine,[place] Urine Culture - Final Escherichia Coli Laboratory WBC 11.5 X10^3/uL (3.6-10.0) H 07/22/16 03:35 RBC 5.17 X10^6/uL (3.5-5.4) 07/22/16 03:35 Hgb 11.4 g/dL (12.0-16.0) L 07/22/16 03:35 Hct 35.6 % (36.0-47.0) L 07/22/16 03:35 MCV 68.8 fL (80.0-100.0) L 07/22/16 03:35 MCH 22.0 pg (27.0-34.0) L 07/22/16 03:35 MCHC 32.0 g/dL (33.0-35.0) L 07/22/16 03:35 RDW 15.5 % (11.6-16.5) 07/22/16 03:35 Plt Count 199 X10^3/uL (150.0-450.0) 07/22/16 03:35 Plt Count Comment Adequate (ADEQUATE) 07/22/16 03:35 MPV 10.0 fL (7.4-11.0) 07/22/16 03:35 Neut % 58.2 % (42.0-75.0) 07/22/16 03:35 Lymph % 29.2 % (21.0-51.0) 07/22/16 03:35 [place] % 8.7 % (0.0-13.0) 07/22/16 03:35 Eos % 3.1 % (0.9-2.9) H 07/22/16 03:35 Baso % 0.8 % (0.2-1.0) 07/22/16 03:35 Neut # 6.7 x10^3/uL (2.2-4.8) H 07/22/16 03:35 Lymph # 3.4 X10^3/uL (1.3-2.9) H 07/22/16 03:35 [place] # 1.0 x10^3/uL (0.3-0.8) H 07/22/16 03:35 Eos # 0.4 x10^3/uL (0.0-0.2) H 07/22/16 03:35 Baso # 0.1 X10^3/uL (0.0-0.1) 07/22/16 03:35 Absolute Nucleated RBC 0.3 /100WBC 07/22/16 03:35 Plt Morphology Comment Normal (NORMAL) 07/22/16 03:35 RBC Morphology Abnormal (NORMAL) A 07/22/16 03:35 Hypochromasia 1+ A 07/22/16 03:35 Microcytosis 1+ A 07/22/16 03:35 D-Dimer 2030 ng/mL (0-400) H* 07/14/16 06:10 Sample Site Rr 07/19/16 04:35 ABG pH 7.430 (7.35-7.45) 07/19/16 04:35 ABG pCO2 50.0 mmHg (35.0-45.0) H 07/19/16 04:35 ABG pO2 79.0 mmHg (80.0-100.0) L 07/19/16 04:35 ABG HCO3 33.2 mmol/L (22-26) H* 07/19/16 04:35 ABG O2 Saturation 96.0 % (90-100) 07/19/16 04:35 ABG Base Excess 7.6 mmol/L (-2.0-2.0) H 07/19/16 04:35 Adan Test Pos 07/19/16 04:35 A-a Gradient 8.0 mmHg 07/19/16 04:35 FiO2 21.000 07/19/16 04:35 Blood Gas Comments Patricio well ae 07/19/16 04:35 Sodium 144 mmol/L (136-145) 07/22/16 03:35 Corrected Sodium 144 mmol/L (136-145) 07/22/16 03:35 Potassium 4.3 mmol/L (3.5-5.1) 07/22/16 03:35 Chloride 108 mmol/L (98-107) H 07/22/16 03:35 Carbon Dioxide 28.4 mmol/L (21-32) 07/22/16 03:35 BUN 9 mg/dL (7-18) 07/22/16 03:35 Creatinine 0.76 mg/dL (0.55-1.02) 07/22/16 03:35 Est GFR (MDRD) Af Amer > 60 (>60) 07/22/16 03:35 Est GFR (MDRD) Non-Af > 60 (>60) 07/22/16 03:35 Glucose 115 mg/dL (65-99) H 07/22/16 03:35 Lactic Acid 3.1 mmol/L (0.4-2.0) H 07/14/16 08:38 Calcium 8.9 mg/dL (8.5-10.1) 07/22/16 03:35 Corrected Calcium 9.9 mg/dL (8.5-10.1) 07/22/16 03:35 Total Bilirubin 0.20 mg/dL (0.2-1.0) 07/22/16 03:35 AST 24 Units/L (15-37) 07/22/16 03:35 ALT 23 Units/L (12-78) 07/22/16 03:35 Alkaline Phosphatase 83 Units/L (46-116) 07/22/16 03:35 Creatine Kinase 212 Units/L (26-192) H 07/14/16 06:10 CK-MB (CK-2) 1.1 ng/mL (0-4.0) 07/14/16 06:10 CK/CKMB % Calc 0.5 % (<4) 07/14/16 06:10 Troponin I < 0.02 ng/mL (0-1.5) 07/14/16 06:10 Total Protein 6.9 g/dL (6.4-8.2) 07/22/16 03:35 Albumin 2.7 g/dL (3.4-5.0) L 07/22/16 03:35 Globulin 4.2 g/dL (2.5-4.5) 07/22/16 03:35 Albumin/Globulin Ratio 0.6 Ratio (1.1-2.1) L 07/22/16 03:35 Free T4 1.19 ng/dL (0.76-1.46) 07/15/16 05:30 TSH 3rd Generation 0.312 uIU/mL (0.358-3.74) L 07/15/16 05:30 Specimen Type Clean catch urine 07/14/16 10:43 Urine Color Yellow (YELLOW) 07/14/16 10:43 Urine Appearance Hazy (CLEAR) 07/14/16 10:43 Urine pH 5.0 (5.0 - 8.0) 07/14/16 10:43 Ur Specific [place] 1.030 (1.000-1.030) 07/14/16 10:43 Urine Protein 3+ (NEGATIVE) 07/14/16 10:43 Urine Glucose (UA) 1+ (NEGATIVE) 07/14/16 10:43 Urine Ketones Negative (NEGATIVE) 07/14/16 10:43 Urine Occult Blood 2+ (NEGATIVE) 07/14/16 10:43 Urine Nitrite Positive (NEGATIVE) 07/14/16 10:43 Urine Bilirubin Negative (NEGATIVE) 07/14/16 10:43 Urine Urobilinogen Normal (NORMAL) 07/14/16 10:43 Ur Leukocyte Esterase 1+ (NEGATIVE) 07/14/16 10:43 Urine RBC 6-8 /HPF (NEGATIVE) 07/14/16 10:43 Urine WBC 8-10 /HPF (NEGATIVE) 07/14/16 10:43 Ur Squamous Epith Cells Few /HPF (NEGATIVE) 07/14/16 10:43 Urine Bacteria Trace /HPF (NEGATIVE) 07/14/16 10:43 Ur Culture Indicated? Yes/culture set up 07/14/16 10:43 - Plan (1) Respiratory distress, acute Status: Acute Plan: IMPROVING RESPIRATORY DISTRESS, PLAN TO CONSULT PT OT, CONTINUE IV ATBX. PLAN TO DC HOME ON TRILOGY (2) Asthma exacerbation Status: Inactive Plan: RESP CARE, IV STEROIDS (3) Hypertension Status: Acute Qualifiers: Hypertension type: H Plan: BP CONTROL, CARDIAC MONITORING (4) COPD (chronic obstructive pulmonary disease) Status: Acute Qualifiers: COPD type: C Chronic bronchitis type: C Emphysema type: E (5) Thyroid goiter Status: Chronic [facility]. PLAN FOR PFT R/O RESTRICTED AIRWAY (6) Acute on chronic respiratory failure with hypercapnia Status: Acute Plan: CONITNUE RESP CARE, AM CXR, PFT. CONSULT [facility] FOR RESP [facility] AT HOME, TRILOGY THERAPY
[2016-07-22] MEDS: COLACE CAP 100 MG PO SCH (20:20)
[2016-07-22] MEDS: MILK OF MAGNESIA PO SCH ×2 (20:21→20:22)
[2016-07-23 04:59] LABS: BASOPHILS # (AUTO) 0.1 X10^3/uL (0.0-0.1); BASOPHILS % (AUTO) 0.7 % (0.2-1.0); EOSINOPHILS # (AUTO) 0.3 x10^3/uL (0.0-0.2); EOSINOPHILS % (AUTO) 2.5 % (0.9-2.9); HEMATOCRIT 33.9 % (36.0-47.0); HEMOGLOBIN 11.1 g/dL (12.0-16.0); LYMPHOCYTES # (AUTO) 3.3 X10^3/uL (1.3-2.9); LYMPHOCYTES % (AUTO) 32.1 % (21.0-51.0); MEAN CORPUSCULAR HEMOGLOBIN 22.3 pg (27.0-34.0); MEAN CORPUSCULAR HGB CONC 32.6 g/dL (33.0-35.0); MEAN CORPUSCULAR VOLUME 68.5 fL (80.0-100.0); MEAN PLATELET VOLUME 9.7 fL (7.4-11.0); MONOCYTES # (AUTO) 0.8 x10^3/uL (0.3-0.8); NEUTROPHILS # (AUTO) 5.8 x10^3/uL (2.2-4.8); NEUTROPHILS % (AUTO) 56.7 % (42.0-75.0); PLATELET COUNT 276 X10^3/uL (150.0-450.0); RED BLOOD COUNT 4.95 X10^6/uL (3.5-5.4); RED CELL DISTRIBUTION WIDTH 15.6 % (11.6-16.5); WHITE BLOOD COUNT 10.3 X10^3/uL (3.6-10.0)
[2016-07-23 05:05] LABS: ALANINE AMINOTRANSFERASE 26 Units/L (12-78); ALBUMIN 2.7 g/dL (3.4-5.0); ALKALINE PHOSPHATASE 79 Units/L (46-116); ASPARTATE AMINO TRANSFERASE 21 Units/L (15-37); BLOOD UREA NITROGEN 10 mg/dL (7-18); CALCIUM 8.8 mg/dL (8.5-10.1); CARBON DIOXIDE 29.2 mmol/L (21-32); CHLORIDE 107 mmol/L (98-107); COR CA(FOR HYPOALB) 9.8 mg/dL (8.5-10.1); CREATININE 0.81 mg/dL (0.55-1.02); GLUCOSE 102 mg/dL (65-99); SODIUM 142 mmol/L (136-145); TOTAL PROTEIN 6.8 g/dL (6.4-8.2); eGFR BLACK RACES > 60 (>60); eGFR NON BLACK RACES > 60 (>60)
[2016-07-23 05:21] LABS: HYPOCHROMASIA 1+; MICROCYTOSIS 1+; PLATELET MORPHOLOGY COMMENT NORMAL (NORMAL)
[2016-07-23] MEDS: PROVENTIL NEB TX 0.083% 2.5MG/ 3ML NEB SCH ×2 (09:41→12:02)
[2016-07-23] MEDS: PULMICORT NEB TX 0.5 MG NEB SCH (09:42)
[2016-07-23] MEDS: PROTONIX INJ 40 MG VIAL IVP SCH (09:51)
[2016-07-23] MEDS: LOVENOX INJ 40 MG SYR SC SCH (09:51)
[2016-07-23] MEDS: ROCEPHIN VIAL 1 GM 1 GM in NS 50 ML IV + SPIKE MINIBAG* 50 ML IV SCH (09:52)
[2016-07-23 13:03] VITALS: BP 138/60
== END 2016-07-23 15:33 | disposition home or self-care (01) | DRG 189 ==
LOC: ER 05:53 → ICU 08:40
PROVIDERS: ADMIT Internal Medicine; ATTEND Internal Medicine
DX: J96.22 Acute and chronic respiratory failure with hypercapnia (principal); J81.0 Acute pulmonary edema; J45.901 Unspecified asthma with (acute) exacerbation; B96.29 Other Escherichia coli [E. coli] as the cause of diseases classified elsewhere; J44.9 Chronic obstructive pulmonary disease, unspecified; I10 Essential (primary) hypertension; R53.1 Weakness; E04.8 Other specified nontoxic goiter; R26.89 Other abnormalities of gait and mobility
CPT/HCPCS: 36415; 36600; 71010; 71275; 76536; 80053; 81001; 82550; 82553; 82803; 83605; 84439; 84443; 84484; 85025; 85378; 87040; 87070; 87086; 87088; 87186; 87205; 93005; 93306; 94640; 94660; 96365; 96367; 96374; 96375; 99284; 99285; A4222; A4618; A7030; C9113; J0696; J1100; J1650; J1940; J2060; J2405; J3480; J3490; J7613; J7620; J7626

== ENCOUNTER 2016-09-15 21:19 | Emergency (ER) | payer OTHER ==
[2016-09-15 21:32] VITALS: BP 149/81; BMI 47.8
--- NOTE | 2016-09-15 22:02 | DR.GENAD ---
HPI - PCP Primary Care Physician: [id number] - Complaint/Symptoms Chief Complaint Doctors Comments: Patient presents with complaint of becoming light headed whil at the store tonight, duration of lightheaded about three minutes. Two nights ago had and continues to have neck and left shoulder pain. Denies history of trauma. Patient was seen by ED at [facility] and treated for muscle spasm of the left shoulder (flexeril 10mg) Chief Complaint:: dizziness - Timing Onset of Chief Complaint: 09/15/16 PMH - PMH Past Medical History: Yes Past Medical History: Asthma, COPD, Hypertension Past Surgical History: Yes Surgical History: Cholecystectomy, Hysterectomy - Family History History of Family Medical Conditions: Yes Family Medical History: Coronary Artery Disease, Hypertension - Social History Does patient currently use any type of tobacco product: No Have you used tobacco products in the last 12 months: No Type of Tobacco Use: None Does any household member use tobacco: No Alcohol Use: None Do you use any recreational Drugs:: No Lives With: Family Lives Where: Home - infectious screening In the last 2 months have you had wt loss of >10#?: NO Have you had fever, night sweats or hemotysis?: No Have you traveled outside the country in the last 6 months?: No Isolation: Standard ROS - Review of Systems Eyes: No Symptoms Reported ENTM: No Symptoms Reported Respiratoy: No Symptoms Reported Cardiovascular: No Symptoms Reported Gastrointestinal/Abdominal: No Symptoms Reported Genitourinary: No Symptoms Reported Neurological: No Symptoms Reported Musculoskeletal: Neck Pain, Left (shoulder and neck) Integumentary: No Symptoms Reported Hematologic/Lymphatic: No Symptoms Reported Endocrine: No Symptoms Reported Psychiatric: No Symptoms Reported All Other Systems: Reviewed and Negative PE - Vital Signs Vitals: Temperature 98.5 F Pulse Rate 80 Respiratory Rate 18 Blood Pressure [Left Arm] 138/60 Blood Pressure [Right Arm] 144/88 Blood Pressure [Standing] 141/70 Blood Pressure [Sitting] 129/67 Blood Pressure [Lying] 102/48 Blood Pressure 149/81 O2 Sat by Pulse Oximetry 95 - General Limitations: No Limitations General Appearance: Alert, In No Apparent Distress - Head Head Exam: Normal Inspection, Atraumatic - Eyes Eye exam: Normal Appearance, PERRL, EOMI - ENT ENT Exam: Normal Exam External Ear Exam: Normal External Inspection TM/Canal Exam: Bilateral Normal Nose Exam: Normal Nose Exam Mouth Exam: Normal Inspection Throat Exam: Normal Inspection - Neck Neck Exam: Normal Inspection - Chest Chest Inspection: Normal Inspection - Respiratory Respiratory Exam: Normal Lung Sounds Bilat Respiratory Exam: Bilateral Clear to Auscultation - Cardiovascular Cardiovascular Exam: Regular Rate, Normal Rhythm - Abdominal Exam Abdominal Exam: Normal Inspection Abdominal Tenderness: negative: RUQ, RLQ, LUQ, LLQ, Epigastrium, Suprapubic, Diffuse, Mild, Moderate, Severe, Other - Extremities Extremities Exam: Normal Inspection, Full ROM - Back Back Exam: Normal Inspection, Full ROM - Neurologic Neurological Exam: Alert, Oriented X3, CN II-XII Intact - Psychiatric Psychiatric Exam: Normal Affect - Skin Skin Exam: Warm, Dry, Intact ROR - XRAY XRAY Interpreted by: Radiologist (cervical spine: Mild multilevel degenerative change without acute fracture or malignment of the cervical spine) - Diagnosis 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
--- NOTE | 2016-09-15 22:27 | RAD ---
HISTORY: 61-year-old female with left shoulder pain. Study: Multiple views cervical spine. Comparison: None. Findings: AP and lateral radiographs of the cervical spine demonstrate normal alignment from the craniocervica l junction to the level of C6. The central canal appears patent without posterior element abnormali ty. No prevertebral soft tissue swelling can be identified. The odontoid appears intact. The late ral masses of C1 align with the body of C2. No acute fracture or malalignment with multilevel mild u ncovertebral joint hypertrophy and anterior osteophytosis. IMPRESSION: 1. Mild multilevel degenerative change without acute fracture or malalignment of the cervical spine . Recommend MR cervical spine for radicular symptoms. Reported By:
== END 2016-09-15 22:47 | disposition home or self-care (01) ==
LOC: ER 21:35
DX: M47.22 Other spondylosis with radiculopathy, cervical region (principal); M51.36 Other intervertebral disc degeneration, lumbar region
CPT/HCPCS: 72040; 99282

== ENCOUNTER 2016-10-12 23:03 | Emergency (ER) | payer OTHER ==
[2016-10-12 23:09] VITALS: BP 135/88; BMI 51.2
[2016-10-12] MEDS ORDERED: DUONEB 0.5 MG/3 MG NEB ONE (23:11)
[2016-10-12] MEDS ORDERED: DUONEB 0.5 MG/3 MG ONE (23:21)
--- NOTE | 2016-10-12 23:24 | DR.GENAD ---
HPI - PCP Primary Care Physician: JASMIN - Complaint/Symptoms Chief Complaint Doctors Comments: Patient admits to breathing treatment for the past two days but is not getting better. She denies fever, vomiting or diarrhea. Chief Complaint:: C/C/C FOR PT STATES" I FEEL SOB AND MY THROAT FEELS LIKE SOMETHING IS CLOGGED UP IN THERE" - Source History Provided: Patient - Mode of Arrival Mode of Arrival: Ambulatory - Timing Onset of Chief Complaint: 10/11/16 PMH - PMH Past Medical History: Yes Past Medical History: Asthma, CHF, COPD, Hypertension Past Surgical History: Yes Surgical History: Cholecystectomy, Hysterectomy - Family History History of Family Medical Conditions: Yes Family Medical History: Coronary Artery Disease, Hypertension - Social History Does any household member use tobacco: No Alcohol Use: None Do you use any recreational Drugs:: No Lives With: Family Lives Where: Home - infectious screening In the last 2 months have you had wt loss of >10#?: NO Have you had fever, night sweats or hemotysis?: No Have you traveled outside the country in the last 6 months?: No Isolation: Standard ROS - Review of Systems Constitutional: negative: Diaphoresis Eyes: No Symptoms Reported ENTM: No Symptoms Reported Respiratoy: No Symptoms Reported Cardiovascular: No Symptoms Reported Gastrointestinal/Abdominal: No Symptoms Reported Genitourinary: No Symptoms Reported Neurological: No Symptoms Reported Musculoskeletal: No Symptoms Reported Integumentary: No Symptoms Reported Hematologic/Lymphatic: No Symptoms Reported Endocrine: No Symptoms Reported Psychiatric: No Symptoms Reported All Other Systems: Reviewed and Negative PE - Vital Signs Vitals: Temperature 99 F Pulse Rate 73 Respiratory Rate 18 Blood Pressure [Left Arm] 138/60 Blood Pressure [Right Arm] 144/88 Blood Pressure [Standing] 141/70 Blood Pressure [Sitting] 129/67 Blood Pressure [Lying] 102/48 Blood Pressure 135/88 O2 Sat by Pulse Oximetry 98 - General Limitations: No Limitations General Appearance: Alert, In No Apparent Distress - Head Head Exam: Normal Inspection, Atraumatic - Eyes Eye exam: Normal Appearance, PERRL, EOMI - ENT ENT Exam: Normal Exam External Ear Exam: Normal External Inspection TM/Canal Exam: Bilateral Normal Nose Exam: Normal Nose Exam Mouth Exam: Normal Inspection Throat Exam: Normal Inspection - Neck Neck Exam: Normal Inspection, Full ROM - Chest Chest Inspection: Normal Inspection - Respiratory Respiratory Exam: Normal Lung Sounds Bilat Respiratory Exam: Bilateral Clear to Auscultation - Cardiovascular Cardiovascular Exam: Regular Rate, Normal Rhythm - Abdominal Exam Abdominal Exam: Normal Inspection Abdominal Tenderness: negative: RUQ, RLQ, LUQ, LLQ, Epigastrium, Suprapubic, Diffuse, Mild, Moderate, Severe, Other - Extremities Extremities Exam: Normal Inspection, Full ROM - Back Back Exam: Normal Inspection, Full ROM - Neurologic Neurological Exam: Alert, Oriented X3, CN II-XII Intact - Psychiatric Psychiatric Exam: Normal Affect, Normal Mood - Skin Skin Exam: Warm, Dry, Intact Course - Reevaluation 1st: Improved ROR - Labs Reviewed Result Diagrams: 10/12/16 23:34 10/12/16 23:34 Laboratory: WBC 9.6 X10^3/uL (3.6-10.0) 10/12/16 23:34 RBC 5.75 X10^6/uL (3.5-5.4) H 10/12/16 23:34 Hgb 12.5 g/dL (12.0-16.0) 10/12/16 23:34 Hct 37.1 % (36.0-47.0) 10/12/16 23:34 MCV 64.5 fL (80.0-100.0) L 10/12/16 23:34 MCH 21.8 pg (27.0-34.0) L 10/12/16 23:34 MCHC 33.7 g/dL (33.0-35.0) 10/12/16 23:34 RDW 16.5 % (11.6-16.5) 10/12/16 23:34 Plt Count 267 X10^3/uL (150.0-450.0) 10/12/16 23:34 Plt Count Comment Adequate (ADEQUATE) 10/12/16 23:34 MPV 9.2 fL (7.4-11.0) 10/12/16 23:34 Neut % 56.4 % (42.0-75.0) 10/12/16 23:34 Lymph % 31.6 % (21.0-51.0) 10/12/16 23:34 [place] % 7.7 % (0.0-13.0) 10/12/16 23:34 Eos % 3.1 % (0.9-2.9) H 10/12/16 23:34 Baso % 1.2 % (0.2-1.0) H 10/12/16 23:34 Neut # 5.4 x10^3/uL (2.2-4.8) H 10/12/16 23:34 Lymph # 3.0 X10^3/uL (1.3-2.9) H 10/12/16 23:34 [place] # 0.7 x10^3/uL (0.3-0.8) 10/12/16 23:34 Eos # 0.3 x10^3/uL (0.0-0.2) H 10/12/16 23:34 Baso # 0.1 X10^3/uL (0.0-0.1) 10/12/16 23:34 Absolute Nucleated RBC 0.1 /100WBC 10/12/16 23:34 Plt Morphology Comment Normal (NORMAL) 10/12/16 23:34 RBC Morphology Abnormal (NORMAL) A 10/12/16 23:34 Hypochromasia 1+ A 10/12/16 23:34 Microcytosis 1+ A 10/12/16 23:34 Sodium 141 mmol/L (136-145) 10/12/16 23:34 Corrected Sodium TNP 10/12/16 23:34 Potassium 3.6 mmol/L (3.5-5.1) 10/12/16 23:34 Chloride 105 mmol/L (98-107) 10/12/16 23:34 Carbon Dioxide 28.8 mmol/L (21-32) 10/12/16 23:34 BUN 16 mg/dL (7-18) 10/12/16 23:34 Creatinine 0.92 mg/dL (0.55-1.02) 10/12/16 23:34 Est GFR (MDRD) Af Amer > 60 (>60) 10/12/16 23:34 Est GFR (MDRD) Non-Af > 60 (>60) 10/12/16 23:34 Glucose 100 mg/dL (65-99) H 10/12/16 23:34 Calcium 8.8 mg/dL (8.5-10.1) 10/12/16 23:34 Corrected Calcium TNP 10/12/16 23:34 Total Bilirubin 0.30 mg/dL (0.2-1.0) 10/12/16 23:34 AST 17 Units/L (15-37) 10/12/16 23:34 ALT 19 Units/L (12-78) 10/12/16 23:34 Alkaline Phosphatase 100 Units/L (46-116) 10/12/16 23:34 C-Reactive Protein 18.10 mg/L (0-3.0) H 10/12/16 23:34 B-Natriuretic Peptide 12.5 pg/mL (0-79) 10/12/16 23:34 Total Protein 7.9 g/dL (6.4-8.2) 10/12/16 23:34 Albumin 3.5 g/dL (3.4-5.0) 10/12/16 23:34 Globulin 4.4 g/dL (2.5-4.5) 10/12/16 23:34 Albumin/Globulin Ratio 0.8 Ratio (1.1-2.1) L 10/12/16 23:34 H. pylori IgG Antibody Positive (NEGATIVE) A 10/12/16 23:34 - XRAY XRAY Interpreted by: Radiologist (chest: No acute process) - Diagnosis Discharge Problem: H. pylori infection, COPD exacerbation - Discharge Plan Condition: Stable - Follow ups/Referrals Follow ups/Referrals: JULIANN SZYMANSKI [Primary Care Provider] - 3 days - Instructions
[2016-10-12 23:41] LABS: BASOPHILS # (AUTO) 0.1 X10^3/uL (0.0-0.1); BASOPHILS % (AUTO) 1.2 % (0.2-1.0); EOSINOPHILS # (AUTO) 0.3 x10^3/uL (0.0-0.2); EOSINOPHILS % (AUTO) 3.1 % (0.9-2.9); HEMATOCRIT 37.1 % (36.0-47.0); HEMOGLOBIN 12.5 g/dL (12.0-16.0); LYMPHOCYTES % (AUTO) 31.6 % (21.0-51.0); MEAN CORPUSCULAR HEMOGLOBIN 21.8 pg (27.0-34.0); MEAN CORPUSCULAR HGB CONC 33.7 g/dL (33.0-35.0); MEAN CORPUSCULAR VOLUME 64.5 fL (80.0-100.0); MEAN PLATELET VOLUME 9.2 fL (7.4-11.0); MONOCYTES # (AUTO) 0.7 x10^3/uL (0.3-0.8); MONOCYTES % (AUTO) 7.7 % (0.0-13.0); NEUTROPHILS # (AUTO) 5.4 x10^3/uL (2.2-4.8); NEUTROPHILS % (AUTO) 56.4 % (42.0-75.0); PLATELET COUNT 267 X10^3/uL (150.0-450.0); RED BLOOD COUNT 5.75 X10^6/uL (3.5-5.4); RED CELL DISTRIBUTION WIDTH 16.5 % (11.6-16.5); WHITE BLOOD COUNT 9.6 X10^3/uL (3.6-10.0)
--- NOTE | 2016-10-12 23:41 | RAD ---
Chest, one view Indication: Shortness of breath. Comparison: 07/20/2016 Findings: Mild cardiac silhouette enlargement is unchanged. The lungs are clear without overt edema, focal infiltrates, or large effusion. The bony thorax is unremarkable. Impression: No acute chest process. Reported By:
[2016-10-12 23:51] LABS: ALANINE AMINOTRANSFERASE 19 Units/L (12-78); ALBUMIN 3.5 g/dL (3.4-5.0); ALKALINE PHOSPHATASE 100 Units/L (46-116); ASPARTATE AMINO TRANSFERASE 17 Units/L (15-37); BLOOD UREA NITROGEN 16 mg/dL (7-18); CALCIUM 8.8 mg/dL (8.5-10.1); CARBON DIOXIDE 28.8 mmol/L (21-32); CHLORIDE 105 mmol/L (98-107); CREATININE 0.92 mg/dL (0.55-1.02); GLUCOSE 100 mg/dL (65-99); SODIUM 141 mmol/L (136-145); TOTAL PROTEIN 7.9 g/dL (6.4-8.2); eGFR BLACK RACES > 60 (>60); eGFR NON BLACK RACES > 60 (>60)
[2016-10-12 23:56] LABS: HYPOCHROMASIA 1+; MICROCYTOSIS 1+; PLATELET MORPHOLOGY COMMENT NORMAL (NORMAL)
[2016-10-13 00:03] LABS: B-TYPE NATRIURETIC PEPTIDE 12.5 pg/mL (0-79)
== END 2016-10-13 00:19 | disposition home or self-care (01) ==
LOC: ER 23:03
DX: J44.1 Chronic obstructive pulmonary disease with (acute) exacerbation (principal); B96.81 Helicobacter pylori [H. pylori] as the cause of diseases classified elsewhere
CPT/HCPCS: 36415; 71010; 80053; 83880; 85025; 86140; 86677; 94640; 99283; J7620

== ENCOUNTER 2016-11-21 01:16 | Emergency (ER) | payer OTHER ==
[2016-11-21 01:33] VITALS: BMI 47.8
--- NOTE | 2016-11-21 02:17 | DR.GENAD ---
HPI - PCP Primary Care Physician: STEPHON - Complaint/Symptoms Chief Complaint Doctors Comments: Patient with a history of COPD and CHF, she sleep on two pillows, admits to PND . Vital signs stable Chief Complaint:: SINUS CONGESTION, HTN AND TIGHTNESS IN CHEST Self Treatment fo Chief Complaint: NONE - Source History Provided: Patient - Mode of Arrival Mode of Arrival: Ambulatory - Timing Onset of Chief Complaint: 11/21/16 PMH - PMH Past Medical History: Yes Past Medical History: Asthma, CHF, COPD, Hypertension Past Surgical History: Yes Surgical History: Cholecystectomy, Hysterectomy - Family History History of Family Medical Conditions: Yes Family Medical History: Coronary Artery Disease, Hypertension - Social History Does patient currently use any type of tobacco product: No Have you used tobacco products in the last 12 months: No Type of Tobacco Use: None Alcohol Use: None Do you use any recreational Drugs:: No Lives With: Family Lives Where: Home - infectious screening In the last 2 months have you had wt loss of >10#?: NO Have you had fever, night sweats or hemotysis?: No Have you traveled outside the country in the last 6 months?: No Isolation: Standard ROS - Review of Systems Eyes: No Symptoms Reported ENTM: No Symptoms Reported Respiratoy: No Symptoms Reported Cardiovascular: No Symptoms Reported Gastrointestinal/Abdominal: No Symptoms Reported Genitourinary: No Symptoms Reported Neurological: No Symptoms Reported Musculoskeletal: No Symptoms Reported Integumentary: No Symptoms Reported Hematologic/Lymphatic: No Symptoms Reported Endocrine: No Symptoms Reported Psychiatric: No Symptoms Reported All Other Systems: Reviewed and Negative PE - Vital Signs Vitals: Temperature 98.3 F Pulse Rate 78 Respiratory Rate 16 Blood Pressure [Left Arm] 138/60 Blood Pressure [Right Arm] 144/88 Blood Pressure [Standing] 141/70 Blood Pressure [Sitting] 129/67 Blood Pressure [Lying] 102/48 Blood Pressure 174/82 O2 Sat by Pulse Oximetry 100 - General General Appearance: Alert, In No Apparent Distress - Head Head Exam: Normal Inspection, Atraumatic - Eyes Eye exam: Normal Appearance, PERRL, EOMI - ENT ENT Exam: Normal Exam External Ear Exam: Normal External Inspection TM/Canal Exam: Bilateral Normal Nose Exam: Normal Nose Exam, Sinus Tenderness Mouth Exam: Normal Inspection Throat Exam: Normal Inspection - Neck Neck Exam: Normal Inspection, Full ROM - Chest Chest Inspection: Normal Inspection - Respiratory Respiratory Exam: Normal Lung Sounds Bilat Respiratory Exam: Bilateral Clear to Auscultation - Cardiovascular Cardiovascular Exam: Regular Rate, Normal Rhythm - Abdominal Exam Abdominal Exam: Normal Inspection Abdominal Tenderness: negative: RUQ, RLQ, LUQ, LLQ, Epigastrium, Suprapubic, Diffuse, Mild, Moderate, Severe, Other - Extremities Extremities Exam: Normal Inspection, Full ROM - Back Back Exam: Normal Inspection, Full ROM - Neurologic Neurological Exam: Alert, Oriented X3, CN II-XII Intact - Psychiatric Psychiatric Exam: Normal Affect - Skin Skin Exam: Warm, Dry, Intact - Diagnosis Discharge Problem: COPD (chronic obstructive pulmonary disease) Qualifiers: COPD type: unspecified COPD Qualified Code(s): J44.9 - Chronic obstructive pulmonary disease, unspecified CHF (congestive heart failure) Qualifiers: Congestive heart failure type: systolic Congestive heart failure chronicity: chronic Qualified Code(s): I50.22 - Chronic systolic (congestive) heart failure - Discharge Plan Condition: Stable - Follow ups/Referrals Follow ups/Referrals: JULIANN SZYMANSKI [Primary Care Provider] - 3 days - Instructions
[2016-11-21 02:18] VITALS: BP 147/76
== END 2016-11-21 02:27 | disposition home or self-care (01) ==
LOC: ER 01:16
DX: I50.22 Chronic systolic (congestive) heart failure (principal); J44.9 Chronic obstructive pulmonary disease, unspecified
CPT/HCPCS: 99281; 99282

== ENCOUNTER 2017-01-27 04:22 | Emergency (ER) | payer OTHER ==
[2017-01-27 04:33] VITALS: BP 140/71; BMI 47.9
--- NOTE | 2017-01-27 05:48 | DR.GENAD ---
HPI - PCP Primary Care Physician: JULIANN SZYMANSKI - Complaint/Symptoms Chief Complaint Doctors Comments: Patient is have trouble with BiPap machine, she leases it monthly, she was advised to contact company and request an exchange. She also states that she has increasing shortness of breath. She has been diagnosed with CHF and is on lasix. Chief Complaint:: "I AM HAVING TROUBLE WITH MY BI-PAP. I WANT TO GO TO SLEEP BUT CAN'T . ITS BLOWING IN BUT ON EXHALATION I CAN'T." - Source History Provided: Patient - Mode of Arrival Mode of Arrival: Ambulatory - Timing Onset of Chief Complaint: 01/27/17 PMH - PMH Past Medical History: Yes Past Medical History: Asthma, CHF, COPD, Hypertension Past Surgical History: Yes Surgical History: Cholecystectomy, Hysterectomy - Family History History of Family Medical Conditions: Yes Family Medical History: Coronary Artery Disease, Hypertension - Social History Type of Tobacco Use: None Does any household member use tobacco: No Alcohol Use: None Do you use any recreational Drugs:: No Lives With: Family Lives Where: Home - infectious screening Have you traveled outside the country in the last 6 months?: No Isolation: Standard ROS - Review of Systems Eyes: No Symptoms Reported ENTM: No Symptoms Reported Respiratoy: No Symptoms Reported Cardiovascular: No Symptoms Reported Gastrointestinal/Abdominal: No Symptoms Reported Genitourinary: No Symptoms Reported Neurological: No Symptoms Reported Musculoskeletal: No Symptoms Reported Integumentary: No Symptoms Reported Hematologic/Lymphatic: No Symptoms Reported Endocrine: No Symptoms Reported Psychiatric: No Symptoms Reported All Other Systems: Reviewed and Negative PE - Vital Signs Vitals: Pulse Rate 89 Respiratory Rate 20 Blood Pressure [Left Arm] 147/76 Blood Pressure [Right Arm] 144/88 Blood Pressure [Standing] 141/70 Blood Pressure [Sitting] 129/67 Blood Pressure [Lying] 102/48 Blood Pressure 140/71 O2 Sat by Pulse Oximetry 97 - General General Appearance: Alert, In No Apparent Distress - Head Head Exam: Normal Inspection, Atraumatic - Eyes Eye exam: Normal Appearance, PERRL, EOMI - ENT ENT Exam: Normal Exam External Ear Exam: Normal External Inspection TM/Canal Exam: Bilateral Normal Nose Exam: Normal Nose Exam Mouth Exam: Normal Inspection Throat Exam: Normal Inspection - Neck Neck Exam: Normal Inspection, Full ROM - Chest Chest Inspection: Normal Inspection - Respiratory Respiratory Exam: Normal Lung Sounds Bilat Respiratory Exam: Bilateral Clear to Auscultation - Cardiovascular Cardiovascular Exam: Regular Rate, Normal Rhythm - Abdominal Exam Abdominal Exam: Normal Inspection, Normal Bowel Sounds Abdominal Tenderness: negative: RUQ, RLQ, LUQ, LLQ, Epigastrium, Suprapubic, Diffuse, Mild, Moderate, Severe, Other - Extremities Extremities Exam: Normal Inspection, Full ROM, Normal Capillary Refill. negative: Edema - Back Back Exam: Normal Inspection, Full ROM - Neurologic Neurological Exam: Alert, Oriented X3, CN II-XII Intact - Psychiatric Psychiatric Exam: Normal Affect, Normal Mood - Skin Skin Exam: Warm, Dry, Intact ROR - Labs Reviewed Result Diagrams: 01/27/17 06:20 01/27/17 06:20 Laboratory: WBC 7.5 X10^3/uL (3.6-10.0) 01/27/17 06:20 RBC 5.58 X10^6/uL (3.5-5.4) H 01/27/17 06:20 Hgb 12.1 g/dL (12.0-16.0) 01/27/17 06:20 Hct 36.3 % (36.0-47.0) 01/27/17 06:20 MCV 65.0 fL (80.0-100.0) L 01/27/17 06:20 MCH 21.6 pg (27.0-34.0) L 01/27/17 06:20 MCHC 33.3 g/dL (33.0-35.0) 01/27/17 06:20 RDW 17.8 % (11.6-16.5) H 01/27/17 06:20 Plt Count 248 X10^3/uL (150.0-450.0) 01/27/17 06:20 Plt Count Comment Adequate (ADEQUATE) 01/27/17 06:20 MPV 9.1 fL (7.4-11.0) 01/27/17 06:20 Neut % 68.8 % (42.0-75.0) 01/27/17 06:20 Lymph % 22.6 % (21.0-51.0) 01/27/17 06:20 [place] % 6.6 % (0.0-13.0) 01/27/17 06:20 Eos % 1.3 % (0.9-2.9) 01/27/17 06:20 Baso % 0.7 % (0.2-1.0) 01/27/17 06:20 Neut # 5.2 x10^3/uL (2.2-4.8) H 01/27/17 06:20 Lymph # 1.7 X10^3/uL (1.3-2.9) 01/27/17 06:20 [place] # 0.5 x10^3/uL (0.3-0.8) 01/27/17 06:20 Eos # 0.1 x10^3/uL (0.0-0.2) 01/27/17 06:20 Baso # 0.1 X10^3/uL (0.0-0.1) 01/27/17 06:20 Absolute Nucleated RBC 0.0 /100WBC 01/27/17 06:20 Plt Morphology Comment Normal (NORMAL) 01/27/17 06:20 RBC Morphology Abnormal (NORMAL) A 01/27/17 06:20 Hypochromasia 1+ A 01/27/17 06:20 Microcytosis 1+ A 01/27/17 06:20 Sodium 142 mmol/L (136-145) 01/27/17 06:20 Corrected Sodium TNP 01/27/17 06:20 Potassium 4.1 mmol/L (3.5-5.1) 01/27/17 06:20 Chloride 106 mmol/L (98-107) 01/27/17 06:20 Carbon Dioxide 25.9 mmol/L (21-32) 01/27/17 06:20 BUN 12 mg/dL (7-18) 01/27/17 06:20 Creatinine 0.74 mg/dL (0.55-1.02) 01/27/17 06:20 Est GFR (MDRD) Af Amer > 60 (>60) 01/27/17 06:20 Est GFR (MDRD) Non-Af > 60 (>60) 01/27/17 06:20 Glucose 104 mg/dL (65-99) H 01/27/17 06:20 Calcium 8.6 mg/dL (8.5-10.1) 01/27/17 06:20 Corrected Calcium 9.2 mg/dL (8.5-10.1) 01/27/17 06:20 Total Bilirubin 0.30 mg/dL (0.2-1.0) 01/27/17 06:20 AST 22 Units/L (15-37) 01/27/17 06:20 ALT 18 Units/L (12-78) 01/27/17 06:20 Alkaline Phosphatase 95 Units/L (46-116) 01/27/17 06:20 Total Protein 7.2 g/dL (6.4-8.2) 01/27/17 06:20 Albumin 3.2 g/dL (3.4-5.0) L 01/27/17 06:20 Globulin 4.0 g/dL (2.5-4.5) 01/27/17 06:20 Albumin/Globulin Ratio 0.8 Ratio (1.1-2.1) L 01/27/17 06:20 - XRAY XRAY Interpreted by: Radiologist (Chest: mild cardiomegaly withou CHF) - Diagnosis Discharge Problem: Mild cardiomegaly w/o CHF - Discharge Plan Condition: Stable - Follow ups/Referrals Follow ups/Referrals: JULIANN SZYMANSKI [Primary Care Provider] - 3 days - Instructions
[2017-01-27 06:23] LABS: BASOPHILS # (AUTO) 0.1 X10^3/uL (0.0-0.1); BASOPHILS % (AUTO) 0.7 % (0.2-1.0); EOSINOPHILS # (AUTO) 0.1 x10^3/uL (0.0-0.2); EOSINOPHILS % (AUTO) 1.3 % (0.9-2.9); HEMATOCRIT 36.3 % (36.0-47.0); HEMOGLOBIN 12.1 g/dL (12.0-16.0); LYMPHOCYTES # (AUTO) 1.7 X10^3/uL (1.3-2.9); LYMPHOCYTES % (AUTO) 22.6 % (21.0-51.0); MEAN CORPUSCULAR HEMOGLOBIN 21.6 pg (27.0-34.0); MEAN CORPUSCULAR HGB CONC 33.3 g/dL (33.0-35.0); MEAN PLATELET VOLUME 9.1 fL (7.4-11.0); MONOCYTES # (AUTO) 0.5 x10^3/uL (0.3-0.8); MONOCYTES % (AUTO) 6.6 % (0.0-13.0); NEUTROPHILS # (AUTO) 5.2 x10^3/uL (2.2-4.8); NEUTROPHILS % (AUTO) 68.8 % (42.0-75.0); PLATELET COUNT 248 X10^3/uL (150.0-450.0); RED BLOOD COUNT 5.58 X10^6/uL (3.5-5.4); RED CELL DISTRIBUTION WIDTH 17.8 % (11.6-16.5); WHITE BLOOD COUNT 7.5 X10^3/uL (3.6-10.0)
[2017-01-27 06:46] LABS: ALANINE AMINOTRANSFERASE 18 Units/L (12-78); ALBUMIN 3.2 g/dL (3.4-5.0); ALKALINE PHOSPHATASE 95 Units/L (46-116); ASPARTATE AMINO TRANSFERASE 22 Units/L (15-37); BLOOD UREA NITROGEN 12 mg/dL (7-18); CALCIUM 8.6 mg/dL (8.5-10.1); CARBON DIOXIDE 25.9 mmol/L (21-32); CHLORIDE 106 mmol/L (98-107); COR CA(FOR HYPOALB) 9.2 mg/dL (8.5-10.1); CREATININE 0.74 mg/dL (0.55-1.02); PLATELET MORPHOLOGY COMMENT NORMAL (NORMAL); SODIUM 142 mmol/L (136-145); TOTAL PROTEIN 7.2 g/dL (6.4-8.2); eGFR BLACK RACES > 60 (>60); eGFR NON BLACK RACES > 60 (>60)
--- NOTE | 2017-01-27 06:46 | RAD ---
HISTORY: Orthopnea Study: Chest AP portable Comparison: 10/12/2016 Findings: The heart is enlarged. No congestive heart failure is noted. No acute alveolar infiltrates or pleural effusions are identified. The bony thorax is unremarkable. IMPRESSION: Mild cardiomegaly without congestive heart failure Lungs clear Reported By:
[2017-01-27 06:47] LABS: HYPOCHROMASIA 1+; MICROCYTOSIS 1+
== END 2017-01-27 07:24 | disposition home or self-care (01) ==
LOC: ER 04:22
DX: I51.7 Cardiomegaly (principal); B96.81 Helicobacter pylori [H. pylori] as the cause of diseases classified elsewhere
CPT/HCPCS: 36415; 71010; 80053; 85025; 86677; 99282

== ENCOUNTER 2017-03-03 22:35 | Emergency (ER) | payer OTHER ==
[2017-03-03 22:44] VITALS: BP 167/71; BMI 48.9
--- NOTE | 2017-03-03 23:31 | DR.GENAD ---
HPI - PCP Primary Care Physician: Juliann Keyes - Complaint/Symptoms Chief Complaint Doctors Comments: Patient has been evaluated by her primary care physician and referred to [facility] for a PET scan to evaluate her thyroid. Patient presents today with complaint that her thyroid is closing up. I advised her to follow up with primary care physician concerning the consult to [facility] where the PET scan done for the results. Patient is aler in no distress. Chief Complaint:: Pressure on throat, feels like her goiter has swollen Self Treatment fo Chief Complaint: Took aspirin around 30-40 min, feels like it went down some, but now thinks it swelling again. On the way out the door she took a puff of her albuterol - Source History Provided: Patient - Mode of Arrival Mode of Arrival: Ambulatory - Timing Onset of Chief Complaint: 03/03/17 PMH - PMH Past Medical History: Yes Past Medical History: Anxiety, COPD Past Surgical History: Yes Surgical History: Cholecystectomy, Hysterectomy, Tonsillectomy - Family History History of Family Medical Conditions: No Family Medical History: Coronary Artery Disease, Hypertension - Social History Does patient currently use any type of tobacco product: No Have you used tobacco products in the last 12 months: No Type of Tobacco Use: None Does any household member use tobacco: No Alcohol Use: None Do you use any recreational Drugs:: No Lives With: Alone Lives Where: Home - infectious screening In the last 2 months have you had wt loss of >10#?: NO Have you had fever, night sweats or hemotysis?: No Have you traveled outside the country in the last 6 months?: No Isolation: Standard ROS - Review of Systems Eyes: No Symptoms Reported ENTM: No Symptoms Reported Respiratoy: No Symptoms Reported Cardiovascular: No Symptoms Reported Gastrointestinal/Abdominal: No Symptoms Reported Genitourinary: No Symptoms Reported Neurological: No Symptoms Reported Musculoskeletal: No Symptoms Reported, Neck (excess fatty tissure lower neck) Integumentary: No Symptoms Reported Hematologic/Lymphatic: No Symptoms Reported Endocrine: No Symptoms Reported Psychiatric: No Symptoms Reported All Other Systems: Reviewed and Negative PE - Vital Signs Vitals: Temperature 97.5 F Pulse Rate 94 Respiratory Rate 18 Blood Pressure [Left Arm] 147/76 Blood Pressure [Right Arm] 144/88 Blood Pressure [Standing] 141/70 Blood Pressure [Sitting] 129/67 Blood Pressure [Lying] 102/48 Blood Pressure 167/71 O2 Sat by Pulse Oximetry 98 - General Limitations: No Limitations General Appearance: Alert, In No Apparent Distress - Head Head Exam: Normal Inspection, Atraumatic - Eyes Eye exam: Normal Appearance, PERRL, EOMI - ENT ENT Exam: Normal Exam External Ear Exam: Normal External Inspection TM/Canal Exam: Bilateral Normal Nose Exam: Normal Nose Exam, Sinus Tenderness Mouth Exam: Normal Inspection Throat Exam: Normal Inspection - Neck Neck Exam: Normal Inspection, Full ROM - Chest Chest Inspection: Normal Inspection - Respiratory Respiratory Exam: Normal Lung Sounds Bilat Respiratory Exam: Bilateral Clear to Auscultation - Cardiovascular Cardiovascular Exam: Regular Rate, Normal Rhythm - Abdominal Exam Abdominal Exam: Normal Inspection, Normal Bowel Sounds Abdominal Tenderness: negative: RUQ, RLQ, LUQ, LLQ, Epigastrium, Suprapubic, Diffuse, Mild, Moderate, Severe, Other - Extremities Extremities Exam: Normal Inspection, Full ROM - Back Back Exam: Normal Inspection, Full ROM - Neurologic Neurological Exam: Alert, Oriented X3, CN II-XII Intact - Psychiatric Psychiatric Exam: Normal Affect, Normal Mood - Skin Skin Exam: Warm, Dry, Intact Course - Treatment Treatment: Reviewed X Ray results dated 07/23/16 and 07/16/16 - enlarge thyroid w/ o compression or respiratory distress. - Diagnosis Discharge Problem: Thyroid goiter - Discharge Plan Condition: Stable - Follow ups/Referrals Follow ups/Referrals: JULIANN KEYES [Primary Care Provider] - 3 days - Instructions
== END 2017-03-03 23:42 | disposition home or self-care (01) ==
LOC: ER 22:51
DX: E04.9 Nontoxic goiter, unspecified (principal)
CPT/HCPCS: 99281; 99282

== ENCOUNTER → 2017-04-06 | Outpatient (CLI) | payer OTHER ==
[~2017-04-06] MED LIST: LEXISCAN IV ONE
== END ==
LOC: RAD 08:22
PROVIDERS: ATTEND Internal Medicine Cardiovascular Disease
DX: I20.9 Angina pectoris, unspecified (principal); R06.02 Shortness of breath; R68.89 Other general symptoms and signs
CPT/HCPCS: 78452; 93017; A4222; A9502; J2785

== ENCOUNTER 2017-04-12 02:14 | Emergency (ER) | payer OTHER ==
[2017-04-12 02:29] VITALS: BMI 49.4
[2017-04-12] MEDS ORDERED: PHENERGAN INJ 25 MG IM ONE (03:08)
--- NOTE | 2017-04-12 03:12 | DR.GENAD ---
HPI - PCP Primary Care Physician: Agapito SZYMANSKI - Complaint/Symptoms Chief Complaint Doctors Comments: Patient states she was nauseated with episode vomiting several times with diarrhea about three times since 2 pm today. States she was feeling sick earlier today and did not eat much but did have a salad and some banna pudding at a local resturaunt. states no other family members are sick. She denies chest pain or SOB. She denies dysuria or hemauria. States she has had diarrhea and vomiting the same time tonight. Chief Complaint:: STARTING FEELING NAUSEATED AROUND 1600. VOMITING SINCE 2129 Self Treatment fo Chief Complaint: PEPTO-BISMOL - Nurses notes reviewed Nurses Notes Review: Yes - Source History Provided: Patient - Mode of Arrival Mode of Arrival: Ambulatory - Timing Onset of Chief Complaint: 04/11/17 Came on: Suddenly - Duration Duration: Intermittent How lon Duration: Hours - Location Location: nauseated - Severity Severity: Moderate - Modifying Factors Worsens:: nothing Improves:: nothing PMH - PMH Past Medical History: Yes Past Medical History: Anxiety, COPD, Hypertension Past Surgical History: Yes Surgical History: Cholecystectomy, Hysterectomy, Tonsillectomy - Family History History of Family Medical Conditions: Yes Family Medical History: Coronary Artery Disease, Hypertension - Social History Does patient currently use any type of tobacco product: No Have you used tobacco products in the last 12 months: No Type of Tobacco Use: None Does any household member use tobacco: Yes Alcohol Use: None Do you use any recreational Drugs:: No Lives With: Family Lives Where: Home - infectious screening In the last 2 months have you had wt loss of >10#?: NO Have you had fever, night sweats or hemotysis?: No Have you traveled outside the country in the last 6 months?: No Isolation: Standard ROS - Review of Systems Constitutional: No Symptoms Reported, Malaise, Weakness, Loss of Appetite. negative: See HPI, Chills, Diaphoresis, Fever, Irritable, Fatigue, Other Eyes: No Symptoms Reported. negative: See HPI, Eye Pain, Blurred Vision, Tearing, Discharge, Photophobia, Diplopia, Other ENTM: No Symptoms Reported, Nose Congestion Respiratoy: No Symptoms Reported. negative: See HPI, Productive Cough, Non- Productive Cough, Moist Cough, Dry Cough, Hacking Cough, Barking Cough, Brassy Cough, Orthopnea, Short of Breath, Stridor, Wheezing, Hemoptysis, Other Cardiovascular: No Symptoms Reported. negative: See HPI, Chest Pain, Edema, Palpitations, Syncope, Cyanosis, Skin Mottling, Other Gastrointestinal/Abdominal: No Symptoms Reported, Diarrhea, Nausea, Vomiting. negative: See HPI, Abdominal Pain, Constipation, Food Intolerance, Other Genitourinary: No Symptoms Reported. negative: See HPI, Discharge, Dysuria, Frequency, Hematuria, Pain, Bleeding, Other Neurological: No Symptoms Reported Musculoskeletal: No Symptoms Reported. negative: See HPI, Back Pain, Gout, Joint Pain, Joint Swelling, Muscle Pain, Muscle Stiffness, Neck Pain, Right, Left, Neck, Chest wall, Rib(s), Back, Shoulder, Arm, Elbow, Forearm, Wrist, Hand , Pelvis, Hip, Leg, Knee, Ankle, Foot, Other Integumentary: No Symptoms Reported. negative: See HPI, Change in Color, Change in Hair/Nails, Dryness, Lesions, Lumps, Rash, Itching, Wound, Bruises, Juandice, Other Hematologic/Lymphatic: No Symptoms Reported. negative: See HPI, Anemia, Blood Clots, Easy Bleeding, Easy Bruising, Swollen Glands, Lymphadenopathy, Other Endocrine: No Symptoms Reported Psychiatric: No Symptoms Reported. negative: See HPI, Anxiety, Depression, Hallucinations, Excessive crying, Suicidal, Other PE - Vital Signs Vitals: Temperature 100.9 F Pulse Rate 86 Respiratory Rate 16 Blood Pressure [Left Arm] 147/76 Blood Pressure [Right Arm] 144/88 Blood Pressure [Standing] 141/70 Blood Pressure [Sitting] 129/67 Blood Pressure [Lying] 102/48 Blood Pressure 142/65 O2 Sat by Pulse Oximetry 97 - General Limitations: No Limitations General Appearance: Alert, In Distress (moderate) - Head Head Exam: Normal Inspection, Atraumatic, Normocephalic - Eyes Eye exam: Normal Appearance, PERRL, EOMI. negative: Scleral Icterus, Conjunctival Injection, Nystagmus, Miosis, Mydrasis, Periorbital Swelling, Periorbital Tenderness, Other - ENT ENT Exam: Normal Exam, Normal Oropharynx, Normal External Ear Exam, Mucous Membranes Moist, TM's Normal Bilaterally External Ear Exam: Normal External Inspection TM/Canal Exam: Bilateral Normal Nose Exam: Normal Nose Exam Mouth Exam: Normal Inspection. negative: Drooling, Trismus, Lip Swelling, Tongue Elevation, Tongue Swelling, Laceration, Other Throat Exam: Normal Inspection - Neck Neck Exam: Normal Inspection, Full ROM, Trachea Midline - Chest Chest Inspection: Normal Inspection, Symmetric Chest Wall Rise - Respiratory Respiratory Exam: Normal Lung Sounds Bilat Respiratory Exam: Bilateral Clear to Auscultation - Cardiovascular Cardiovascular Exam: Regular Rate, Normal Rhythm, Normal Heart Sounds - Abdominal Exam Abdominal Exam: Normal Inspection, Normal Bowel Sounds, Soft. negative: Distention, Tenderness, Guarding, Rebound, Rigidity, Dimnished Bowel Sounds, Hyperactive Bowel Sounds, Hypoactive Bowel Sounds, Organomegaly, Trauma, Incision, Ascites, Mass, Bruit, Pulsatile Mass, Hernia, Other Abdominal Tenderness: negative: RUQ, RLQ, LUQ, LLQ, Epigastrium, Suprapubic, Diffuse, Mild, Moderate, Severe, Other - Extremities Extremities Exam: Normal Inspection, Full ROM, Normal Capillary Refill. negative: Tenderness, Edema, Joint Swelling, Calf Tenderness, Other - Back Back Exam: Normal Inspection, Full ROM. negative: Tenderness, (R) CVA Tenderness, (L) CVA Tenderness, Muscle Spasm, Paraspinal Tenderness, Vertebral Tenderness, Rashes, (R) Sciatic Notch Tenderness, (L) Sciatic Notch Tendern, (R ) Straight Leg Raise, (L) Straight Leg Raise, Other - Neurologic Neurological Exam: Alert, Oriented X3, CN II-XII Intact, Normal Gait, Reflexes Normal - Psychiatric Psychiatric Exam: Normal Affect, Normal Mood - Skin Skin Exam: Warm, Dry, Intact, Normal Color ROR - Labs Reviewed Laboratory Results Reviewed?: Yes (all labs and x-ray results reviewed and discussed with patient) Result Diagrams: 04/12/17 03:21 04/12/17 03:21 Laboratory: WBC 8.2 X10^3/uL (3.6-10.0) 04/12/17 03:21 RBC 6.13 X10^6/uL (3.5-5.4) H 04/12/17 03:21 Hgb 13.3 g/dL (12.0-16.0) 04/12/17 03:21 Hct 39.8 % (36.0-47.0) 04/12/17 03:21 MCV 64.9 fL (80.0-100.0) L 04/12/17 03:21 MCH 21.7 pg (27.0-34.0) L 04/12/17 03:21 MCHC 33.5 g/dL (33.0-35.0) 04/12/17 03:21 RDW 17.4 % (11.6-16.5) H 04/12/17 03:21 Plt Count 279 X10^3/uL (150.0-450.0) 04/12/17 03:21 Plt Count Comment Adequate (ADEQUATE) 04/12/17 03:21 MPV 9.1 fL (7.4-11.0) 04/12/17 03:21 Neut % 84.9 % (42.0-75.0) H 04/12/17 03:21 Lymph % 9.9 % (21.0-51.0) L 04/12/17 03:21 [place] % 3.7 % (0.0-13.0) 04/12/17 03:21 Eos % 0.9 % (0.9-2.9) 04/12/17 03:21 Baso % 0.6 % (0.2-1.0) 04/12/17 03:21 Neut # 7.0 x10^3/uL (2.2-4.8) H 04/12/17 03:21 Lymph # 0.8 X10^3/uL (1.3-2.9) L 04/12/17 03:21 [place] # 0.3 x10^3/uL (0.3-0.8) 04/12/17 03:21 Eos # 0.1 x10^3/uL (0.0-0.2) 04/12/17 03:21 Baso # 0.0 X10^3/uL (0.0-0.1) 04/12/17 03:21 Absolute Nucleated RBC 0.1 /100WBC 04/12/17 03:21 Plt Morphology Comment Normal (NORMAL) 04/12/17 03:21 RBC Morphology Abnormal (NORMAL) A 04/12/17 03:21 Hypochromasia 1+ A 04/12/17 03:21 Microcytosis 2+ A 04/12/17 03:21 Sodium 140 mmol/L (136-145) 04/12/17 03:21 Corrected Sodium 140 mmol/L (136-145) 04/12/17 03:21 Potassium 4.0 mmol/L (3.5-5.1) 04/12/17 03:21 Chloride 105 mmol/L (98-107) 04/12/17 03:21 Carbon Dioxide 26.5 mmol/L (21-32) 04/12/17 03:21 BUN 16 mg/dL (7-18) 04/12/17 03:21 Creatinine 0.77 mg/dL (0.55-1.02) 04/12/17 03:21 Est GFR (MDRD) Af Amer > 60 (>60) 04/12/17 03:21 Est GFR (MDRD) Non-Af > 60 (>60) 04/12/17 03:21 Glucose 116 mg/dL (65-99) H 04/12/17 03:21 Calcium 8.7 mg/dL (8.5-10.1) 04/12/17 03:21 Corrected Calcium TNP 04/12/17 03:21 Total Bilirubin 0.40 mg/dL (0.2-1.0) 04/12/17 03:21 AST 21 Units/L (15-37) 04/12/17 03:21 ALT 22 Units/L (12-78) 04/12/17 03:21 Alkaline Phosphatase 105 Units/L (46-116) 04/12/17 03:21 Total Protein 8.0 g/dL (6.4-8.2) 04/12/17 03:21 Albumin 3.5 g/dL (3.4-5.0) 04/12/17 03:21 Globulin 4.5 g/dL (2.5-4.5) 04/12/17 03:21 Albumin/Globulin Ratio 0.8 Ratio (1.1-2.1) L 04/12/17 03:21 Amylase 70 Units/L (25-115) 04/12/17 03:21 Lipase 115 Units/L (73-393) 04/12/17 03:21 - XRAY XRAY Interpreted by: Radiologist (Abdominal series: No acute caradiopulmonary disease. No evidence for acute abdominal pathology) - Diagnosis Discharge Problem: Gastroenteritis, Viral syndrome - Discharge Plan Disposition: 01 HOME, SELF-CARE Condition: Stable Prescriptions: Ciprofloxacin HCl [CIPRO 500 MG TAB *] 500 mg PO Q12H #20 tab Diphenoxylate/Atropine [Lomotil] 1 tab PO BID #14 tab Ondansetron [Zofran Odt] 4 mg PO Q8H PRN #18 tab PRN Reason: Nausea/Vomiting - Follow ups/Referrals Follow ups/Referrals: JULIANN SZYMANSKI [Primary Care Provider] - 3 days - Instructions Instructions: Viral Gastroenteritis, Adult, [id number], Food Choices to Help Relieve Diarrhea, Adult, Rehydration, Adult
[2017-04-12] MEDS ORDERED: PHENERGAN INJ 25 MG ONE (03:13)
[2017-04-12 03:34] LABS: BASOPHILS % (AUTO) 0.6 % (0.2-1.0); EOSINOPHILS # (AUTO) 0.1 x10^3/uL (0.0-0.2); EOSINOPHILS % (AUTO) 0.9 % (0.9-2.9); HEMATOCRIT 39.8 % (36.0-47.0); HEMOGLOBIN 13.3 g/dL (12.0-16.0); LYMPHOCYTES # (AUTO) 0.8 X10^3/uL (1.3-2.9); LYMPHOCYTES % (AUTO) 9.9 % (21.0-51.0); MEAN CORPUSCULAR HEMOGLOBIN 21.7 pg (27.0-34.0); MEAN CORPUSCULAR HGB CONC 33.5 g/dL (33.0-35.0); MEAN CORPUSCULAR VOLUME 64.9 fL (80.0-100.0); MEAN PLATELET VOLUME 9.1 fL (7.4-11.0); MONOCYTES # (AUTO) 0.3 x10^3/uL (0.3-0.8); MONOCYTES % (AUTO) 3.7 % (0.0-13.0); NEUTROPHILS % (AUTO) 84.9 % (42.0-75.0); PLATELET COUNT 279 X10^3/uL (150.0-450.0); RED BLOOD COUNT 6.13 X10^6/uL (3.5-5.4); RED CELL DISTRIBUTION WIDTH 17.4 % (11.6-16.5); WHITE BLOOD COUNT 8.2 X10^3/uL (3.6-10.0)
[2017-04-12 03:41] LABS: ALANINE AMINOTRANSFERASE 22 Units/L (12-78); ALBUMIN 3.5 g/dL (3.4-5.0); ALKALINE PHOSPHATASE 105 Units/L (46-116); AMYLASE 70 Units/L (25-115); ASPARTATE AMINO TRANSFERASE 21 Units/L (15-37); BLOOD UREA NITROGEN 16 mg/dL (7-18); CALCIUM 8.7 mg/dL (8.5-10.1); CARBON DIOXIDE 26.5 mmol/L (21-32); CHLORIDE 105 mmol/L (98-107); COR NA(FOR HYPERGLY) 140 mmol/L (136-145); CREATININE 0.77 mg/dL (0.55-1.02); LIPASE 115 Units/L (73-393); SODIUM 140 mmol/L (136-145); eGFR BLACK RACES > 60 (>60); eGFR NON BLACK RACES > 60 (>60)
[2017-04-12 03:55] LABS: HYPOCHROMASIA 1+; PLATELET MORPHOLOGY COMMENT NORMAL (NORMAL)
[2017-04-12 03:56] LABS: MICROCYTOSIS 2+
--- NOTE | 2017-04-12 04:30 | RAD ---
Acute abdominal series Indication: Nausea with abdominal Comparison: None available Findings: The trachea is midline. The cardiac silhouette is unremarkable. The lungs are clear without focal i nfiltrate or effusion. The bony thorax is unremarkable. Flat and upright evaluation of the abdomen demonstrates a normal bowel gas pattern. No pathological soft tissue mass or calcification can be observed. The bony structures are grossly intact. Prior cho lecystectomy is noted. IMPRESSION: 1. No acute cardiopulmonary disease. 2. No evidence for acute abdominal pathology identified. Reported By:
[2017-04-12] MEDS ORDERED: ZOFRAN TAB 4 MG PO STA (05:11)
[2017-04-12] MEDS ORDERED: ZOFRAN TAB 4 MG ONE (05:13)
[2017-04-12] MEDS ORDERED: LEVAQUIN TAB 500 MG PO STA (05:16)
[2017-04-12] MEDS ORDERED: LEVAQUIN TAB 500 MG ONE (05:18)
[2017-04-12 05:28] VITALS: BP 137/86
== END 2017-04-12 05:28 | disposition home or self-care (01) ==
LOC: ER 02:14
DX: K52.89 Other specified noninfective gastroenteritis and colitis (principal); B97.89 Other viral agents as the cause of diseases classified elsewhere
CPT/HCPCS: 36415; 74022; 80053; 82150; 83690; 85025; 96372; 99282; 99283; S0181; J2550

== ENCOUNTER 2023-06-15 17:49 | Observation (INO) ==
--- NOTE | 2023-06-15 18:16 | DR.H&P ---
H&P History & Physical for Day of: H&P Date: 06/15/23 Chief Complaint Chief Complaint: "CANT WALK" "LOWER BACK IS KILLING ME" Allergies Allergies Allergy/AdvReac Type Severity Reaction Status Date / Time No Known Drug Allergies Allergy Unknown Verified 06/05/23 09:52 History of Present Illness History of Present Illness: PT IS 67 BF, DIRECT ADMIT FROM DR CASTELLANOS OFFICE WITH CO WENT TO ER TWICE WITH INTRACTABLE LOWER BACK PAIN AND PAIN IN LEGS. PT STATES SHE WAS SEEN IN ER IN [place] AND THEN AT [facility]. PT WAS GIVEN PO NORCO AND SOMA WITHOUT IMPROVEMENT. PT DENIES ANY PREVIOUS TRAUMA AND OR FALLS. PT HAS PMH OF HTN, ASTHMA, THYROMEGALY. PT ADMITTED FOR EVALUATION AND TREATMENT OF ACUTE ILLNESS. Past Medical History Past Medical History: Anxiety, Arthritis, CHF, COPD, Coronary Artery Disease, GERD, Hypertension and Sleep Apnea Past Surgical History Surgical History: , Cholecystectomy, [employer] Surgery, Hysterectomy and Tonsillectomy Family History Family Medical History: Cancer, Coronary Artery Disease and Hypertension Medications Home Medications: Home Medications Medication Instructions Recorded Confirmed Type furosemide 20 mg tablet 1 tab PO DAILY 07/14/16 06/05/23 History hydrochlorothiazide 25 mg tablet 1 tab PO DAILY 07/14/16 09/15/16 History cyclobenzaprine 10 mg tablet 10 mg PO TID 09/15/16 09/15/16 History hydrocodone 5 mg-acetaminophen 325 1 tab PO Q6H PRN Pain 09/15/16 09/15/16 History mg tablet budesonide-formoterol HFA 160 1 inh inhalation BID 06/05/23 06/05/23 History mcg-4.5 mcg/actuation aerosol inhaler (Symbicort) diclofenac sodium 75 mg 75 mg PO ONCE 06/05/23 06/05/23 History tablet,delayed release ergocalciferol (vitamin D2) 1,250 1,250 mcg PO QWEEK 06/05/23 06/05/23 History mcg (50,000 unit) capsule (Vitamin D2) nebivolol 5 mg tablet (Bystolic) 5 mg PO QDAY 06/05/23 06/05/23 History omeprazole 40 mg capsule,delayed 40 mg PO QDAY 06/05/23 06/05/23 History release Review of Systems Constitutional: Weakness Eyes: No Symptoms Reported ENT: No Symptoms Reported Respiratory: Shortness of Breath Cardiovascular: No Symptoms Reported Gastrointestinal: No Symptoms Reported Genitourinary: Frequency Musculoskeletal: Back Pain and Leg Pain Skin: No Symptoms Reported Neurological: Weakness and Numbness (DECREASED SENSATION TO LEGS) Oriented: Normal Eyes: Normal Ear: Normal Nose: Normal Throat: Normal Respiratory: RLL Diminished and LLL Diminished Cardiovascular: Edema Palpation: Normal Tenderness: Normal Skin: Decreased Turgur Musculoskeletal: Back:Lumbar and Motor Deficit Psychiatric: Normal Mood Description: Anxious Affect: Depressed Speech Pattern: Clear Assessment/Plan (1) DJD (degenerative joint disease) of cervical spine: Qualifiers: Spinal osteoarthritis complication: with radiculopathy Qualified Code(s): M47.22 - Other spondylosis with radiculopathy, cervical region Narrative Support Text: ADMIT, IV SOLU MEDROL IV HYDRATION, PAIN CONTROL MRI IN THE AM BP CONTROL, VERIFY HOME MEDICATIONS Status: Acute (2) COPD exacerbation: Status: Acute (3) CHF (congestive heart failure): Qualifiers: Congestive heart failure chronicity: chronic Congestive heart failure type: systolic Qualified Code(s): I50.22 - Chronic systolic (congestive) heart failure Status: Acute (4) Hypertension: Status: Acute (5) Lumbar spine pain: Status: Acute (6) Leg weakness, bilateral: Status: Acute
[2023-06-15 19:29] LABS: ERYTHROCYTE SEDIMENTATION RATE 58 MM/HOUR (0-20)
[2023-06-15 19:31] LABS: BASOPHILS # (AUTO) 0.1 X10^3/uL (0.0-0.1); BASOPHILS % (AUTO) 0.6 % (0.2-1.0); EOSINOPHILS # (AUTO) 0.1 x10^3/uL (0.0-0.2); LYMPHOCYTES # (AUTO) 3.7 X10^3/uL (1.3-2.9); NEUTROPHILS # (AUTO) 5.3 x10^3/uL (2.2-4.8); WHITE BLOOD COUNT 9.8 X10^3/uL (3.6-10.0)
[2023-06-15 19:36] LABS: EOSINOPHILS % (AUTO) 0.6 % (0.9-2.9); HEMOGLOBIN 11.4 g/dL (12.0-16.0); LYMPHOCYTES % (AUTO) 37.3 % (21.0-51.0); MEAN CORPUSCULAR HEMOGLOBIN 19.4 pg (27.0-34.0); MEAN CORPUSCULAR HGB CONC 31.5 g/dL (33.0-35.0); MEAN CORPUSCULAR VOLUME 61.5 fL (80.0-100.0); MONOCYTES # (AUTO) 0.7 x10^3/uL (0.3-0.8); MONOCYTES % (AUTO) 7.3 % (0.0-13.0); NEUTROPHILS % (AUTO) 54.2 % (42.0-75.0); PLATELET COUNT 313 X10^3/uL (150.0-450.0); RED BLOOD COUNT 5.86 X10^6/uL (3.5-5.4)
[2023-06-15 19:39] LABS: ALANINE AMINOTRANSFERASE 18 Units/L (12-78); ALBUMIN 3.2 g/dL (3.4-5.0); ALKALINE PHOSPHATASE 117 Units/L (46-116); ASPARTATE AMINO TRANSFERASE 20 Units/L (15-37); BLOOD UREA NITROGEN 16 mg/dL (7-18); CALCIUM 8.9 mg/dL (8.5-10.1); CARBON DIOXIDE 27.8 mmol/L (21-32); CHLORIDE 102 mmol/L (98-107); COR CA(FOR HYPOALB) 9.5 mg/dL (8.5-10.1); COR NA(FOR HYPERGLY) 139 mmol/L (136-145); CREATININE 0.82 mg/dL (0.55-1.02); GLUCOSE 112 mg/dL (65-99); POTASSIUM 3.7 mmol/L (3.5-5.1); SODIUM 139 mmol/L (136-145); TOTAL PROTEIN 7.6 g/dL (6.4-8.2); eGFR NON BLACK RACES > 60 (>60)
[2023-06-15 19:54] LABS: ANISOCYTOSIS 1+; HYPOCHROMASIA 3+; MICROCYTOSIS 2+; PLATELET MORPHOLOGY COMMENT NORMAL (NORMAL); TARGET CELLS PRESENT
[2023-06-15] MEDS ORDERED: CONSULT PHARMACY - POTASSIUM & MAGNESIUM XX SCH (20:00)
[2023-06-15] MEDS: NS 1,000 ML IV 1,000 ML IV SCH (20:19)
[2023-06-15] MEDS: PROTONIX TAB 40 MG PO SCH (20:20)
[2023-06-15] MEDS: SOLU-Medrol 125 MG VIAL IVP SCH (20:20)
[2023-06-15] MEDS: NORCO 5/325 MG TAB PO PRN (20:22)
[2023-06-15] MEDS: K-DUR TAB 20 MEQ PO ONE (20:53)
[2023-06-15] MEDS: DUONEB 0.5 MG/3 MG (3 mL) NEB SCH (21:19)
[2023-06-15] MEDS: PULMICORT NEB TX 0.5 MG NEB SCH (21:20)
[2023-06-15 21:47] VITALS: BMI 46.9
[2023-06-16] MEDS: TORADOL 15 MG VIAL IVP PRN (00:05)
[2023-06-16 06:36] LABS: MEAN CORPUSCULAR HEMOGLOBIN 19.5 pg (27.0-34.0); MEAN CORPUSCULAR VOLUME 62.1 fL (80.0-100.0)
[2023-06-16 06:40] LABS: BASOPHILS % (AUTO) 0.5 % (0.2-1.0); EOSINOPHILS % (AUTO) 0.1 % (0.9-2.9); HEMATOCRIT 34.2 % (36.0-47.0); HEMOGLOBIN 10.7 g/dL (12.0-16.0); LYMPHOCYTES # (AUTO) 0.5 X10^3/uL (1.3-2.9); LYMPHOCYTES % (AUTO) 5.7 % (21.0-51.0); MEAN CORPUSCULAR HGB CONC 31.3 g/dL (33.0-35.0); MEAN PLATELET VOLUME 8.9 fL (7.4-11.0); MONOCYTES # (AUTO) 0.9 x10^3/uL (0.3-0.8); MONOCYTES % (AUTO) 10.3 % (0.0-13.0); NEUTROPHILS # (AUTO) 7.7 x10^3/uL (2.2-4.8); NEUTROPHILS % (AUTO) 83.4 % (42.0-75.0); PLATELET COUNT 223 X10^3/uL (150.0-450.0); RED BLOOD COUNT 5.51 X10^6/uL (3.5-5.4); RED CELL DISTRIBUTION WIDTH 21.5 % (11.6-16.5); WHITE BLOOD COUNT 9.2 X10^3/uL (3.6-10.0)
[2023-06-16 06:47] LABS: ALANINE AMINOTRANSFERASE 17 Units/L (12-78); ALBUMIN 2.8 g/dL (3.4-5.0); ALKALINE PHOSPHATASE 107 Units/L (46-116); ASPARTATE AMINO TRANSFERASE 14 Units/L (15-37); BLOOD UREA NITROGEN 16 mg/dL (7-18); CALCIUM 8.6 mg/dL (8.5-10.1); CHLORIDE 104 mmol/L (98-107); COR CA(FOR HYPOALB) 9.6 mg/dL (8.5-10.1); COR NA(FOR HYPERGLY) 140 mmol/L (136-145); CREATININE 0.82 mg/dL (0.55-1.02); GLUCOSE 129 mg/dL (65-99); MAGNESIUM 2.1 mg/dL (2.0-2.9); POTASSIUM 4.7 mmol/L (3.5-5.1); SODIUM 139 mmol/L (136-145); TOTAL PROTEIN 7.1 g/dL (6.4-8.2); eGFR NON BLACK RACES > 60 (>60)
[2023-06-16 07:05] LABS: PLATELET MORPHOLOGY COMMENT NORMAL (NORMAL)
[2023-06-16 07:06] LABS: ANISOCYTOSIS 1+; HYPOCHROMASIA 3+; MICROCYTOSIS 2+; TARGET CELLS 1+
[2023-06-16 09:04] LABS: FREE T4 (FREE THYROXINE) 1.33 ng/dL (0.76-1.46); TSH (3RD GENERATION) 0.441 uIU/mL (0.358-3.74)
[2023-06-16] MEDS: HYDROCHLOROTHIAZIDE 25 MG TAB PO SCH (09:08)
[2023-06-16] MEDS: ZANAFLEX PO PRN (09:08)
[2023-06-16 10:02] LABS: BILIRUBIN,URINE NEGATIVE (NEGATIVE); BLOOD/HEMOGLOBIN,URINE 1+ (NEGATIVE); GLUCOSE, URINE NEGATIVE (NEGATIVE); KETONES,URINE NEGATIVE (NEGATIVE); LEUKOCYTE ESTERASE ,URINE NEGATIVE (NEGATIVE); NITRITES,URINE NEGATIVE (NEGATIVE); PROTEIN,URINE NEGATIVE (NEGATIVE); UROBILINOGEN,URINE NORMAL (NORMAL)
[2023-06-16 10:33] LABS: APPEARANCE,URINE SLIGHTLY HAZY (CLEAR); BACTERIA,URINE TRACE /HPF (NEGATIVE); COLOR,URINE YELLOW (YELLOW); RBC,URINE 0-2 /HPF (0-3); SQUAMOUS EPITHELIAL CELL,UR FEW /HPF (NEGATIVE)
--- NOTE | 2023-06-16 14:13 | RAD ---
EXAM:CHEST, 1 VIEWHISTORY:SOB, ASTHMA, COPF;COMPARISON:Prior study or studies were utilized for comparison during interpretation with the most relevant dated 06/05/2023TECHNIQUE:CHEST, 1 VIEWFINDINGS:Chest:Lines and tubes: NoneMediastinum: Cardiac and mediastinal shadow is within normal limits for size and contour.Pulmonary vessels: No pulmonary vascular congestion.Lung valverde: No suspicious airspace opacity.Pleura: No effusion. No pneumothorax.Bones and soft tissues: No acute osseous or soft tissue abnormality.IMPRESSION:1. No acute cardiopulmonary abnormalityTHIS IS AN ELECTRONICALLY VERIFIED FINAL REPORT06/16/2023 2:09 PM - Electronically signed by Nino Sawyer MD
--- NOTE | 2023-06-16 16:30 | US ---
EXAM: THYROID HISTORY: non-toxic goiter; NON TOXIC GOITER, PT STATES LEFT THYROID HAS BEEN PREVIOUSLY BIOPSIED IN [place] COMPARISON: CTA chest 06/05/2023 TECHNIQUE: 71 images made by the warp tier. Giron scale and color-flow images of the thyroid were obtained. FINDINGS: Right lobe of the thyroid measures 49 x 18 x 17 mm. Left lobe of the thyroid measures 100 x 63 x 32 mm. Isthmus measures 5 mm. The thyroid is large in size. The contour is lobular. Echogenicity is coarse. Multiple nodules are consistent with a multinodular goiter. The entire left lobe may be 1 large thyroid mass. Mildly suspicious TI-RADS category 3. This meets guidelines for FNA. The largest nodule as measured today is 42 mm near the isthmus. This is isoechoic and solid. Mildly suspicious TI-RADS category 3. ACR guidelines suggest follow-up sonography at 1, 3, and 5 years. Largest nodule on the right side measures 15 mm. This is isoechoic and solid. Mildly suspicious TI- RADS category 3. ACR guidelines suggest follow-up sonography at 1, 3, and 5 years. IMPRESSION: 1. Multinodular goiter 2. (2) of the largest nodules meet ACR criteria for FNA 3. Recommend follow-up sonography in 1 year 4. TI-RADS category 3 THIS IS AN ELECTRONICALLY VERIFIED FINAL REPORT 06/16/2023 4:26 PM - Electronically signed by Isak Luna MD
[2023-06-16] MEDS: SALINE 0.9% 3 ML NEB TX NEB ONE (21:45)
[2023-06-16] MEDS: ZOFRAN INJ 4 MG VIAL IVP PRN (21:49)
[2023-06-16] MEDS: SALINE 0.9% 3 ML NEB TX ONE (23:25)
[2023-06-17 06:18] LABS: ALANINE AMINOTRANSFERASE 13 Units/L (12-78); ALKALINE PHOSPHATASE 101 Units/L (46-116); ASPARTATE AMINO TRANSFERASE 16 Units/L (15-37); BLOOD UREA NITROGEN 20 mg/dL (7-18); CALCIUM 8.9 mg/dL (8.5-10.1); CARBON DIOXIDE 27.5 mmol/L (21-32); CHLORIDE 102 mmol/L (98-107); COR CA(FOR HYPOALB) 9.7 mg/dL (8.5-10.1); COR NA(FOR HYPERGLY) 138 mmol/L (136-145); CREATININE 0.83 mg/dL (0.55-1.02); GLUCOSE 131 mg/dL (65-99); POTASSIUM 4.8 mmol/L (3.5-5.1); SODIUM 137 mmol/L (136-145); TOTAL PROTEIN 7.2 g/dL (6.4-8.2); eGFR NON BLACK RACES > 60 (>60)
[2023-06-17 06:35] LABS: BASOPHILS # (AUTO) 0.1 X10^3/uL (0.0-0.1); BASOPHILS % (AUTO) 0.4 % (0.2-1.0); HEMATOCRIT 33.4 % (36.0-47.0); HEMOGLOBIN 10.4 g/dL (12.0-16.0); LYMPHOCYTES % (AUTO) 27.5 % (21.0-51.0); MEAN CORPUSCULAR HEMOGLOBIN 19.2 pg (27.0-34.0); MEAN CORPUSCULAR VOLUME 61.8 fL (80.0-100.0); MONOCYTES # (AUTO) 0.5 x10^3/uL (0.3-0.8); MONOCYTES % (AUTO) 3.3 % (0.0-13.0); NEUTROPHILS # (AUTO) 10.1 x10^3/uL (2.2-4.8); NEUTROPHILS % (AUTO) 68.8 % (42.0-75.0); PLATELET COUNT 300 X10^3/uL (150.0-450.0); RED BLOOD COUNT 5.41 X10^6/uL (3.5-5.4); RED CELL DISTRIBUTION WIDTH 21.3 % (11.6-16.5); WHITE BLOOD COUNT 14.7 X10^3/uL (3.6-10.0)
[2023-06-17 06:54] LABS: ANISOCYTOSIS 1+; HYPOCHROMASIA 3+; MICROCYTOSIS 2+; PLATELET MORPHOLOGY COMMENT NORMAL (NORMAL); POIKILOCYTOSIS 1+; TARGET CELLS 2+
[2023-06-17] MEDS: NEURONTIN CAP 100 MG PO SCH (09:52)
[2023-06-17] MEDS: CARAFATE ORAL SUSP PO SCH (11:27)
[2023-06-17] MEDS: VALIUM PO PRN (11:49)
--- NOTE | 2023-06-17 15:24 | MRI ---
EXAM: MRI lumbar spine without IV contrast HISTORY: INTRACTABLE LOWER BACK PAIN, SCIATICA, LEG WEAKNESS - COMPARISON: None. TECHNIQUE: Multiplanar multisequence MRI of the lumbar spine was obtained without IV contrast. FINDINGS: The conus terminates at the L1 level. There is mild anterolisthesis of L3 on L4 which is probably fro m arthritic facet changes. No compression fracture is seen. No suspicious abnormal bony signal is s een. Study is slightly limited due to motion and poor signal noise ratio. There appear to be congen itally short pedicles throughout the lumbar spine. At T11-12 there is posterior element hypertrophy causing mild right neuroforaminal narrowing with mor e moderate to prominent left neuroforaminal narrowing. T12 -- L1: No significant stenosis. L1 -- L2: Mild posterior element hypertrophy causes moderate bilateral neuroforaminal stenosis and mo derate thecal sac effacement. L2 -- L3: Mild posterior element hypertrophy is seen with mild posterior disc osteophyte complex. Mo derate to prominent right neuroforaminal narrowing is seen with moderate left neuroforaminal narrowin g. No definite compression of the exiting nerve roots is seen. There is moderate thecal sac effacem ent and mild lateral recess narrowing. L3 -- L4: Moderate posterior element hypertrophy is seen with spondylolisthesis and probable broad ce ntral disc bulge. Thecal sac compression is present. There is mild left-sided and moderate right-si ded lateral recess stenosis. Prominent right neuroforaminal narrowing is seen with likely compressio n of the right L3 nerve root. Moderate left neuroforaminal narrowing is seen. L4 -- L5: Moderate posterior element hypertrophy is seen with broad central disc bulge. There is pro minent bilateral neuroforaminal stenosis with possible compression of the exiting L4 nerve roots. Pr ominent thecal sac effacement is seen. Mild left-sided and prominent right-sided lateral recess sten osis is seen. There is contact and possible compression of the right L5 nerve root. L5 -- S1:There appears to be partial sacralization of the left side of L5. Moderate facet hypertroph y is seen. Broad central disc bulge is seen. There is mild thecal sac effacement. Mild lateral rec ess stenosis is seen. Moderate right neuroforaminal narrowing is seen with more prominent left neuro foraminal narrowing. There is contact and possible compression of the exiting left L5 nerve root. IMPRESSION: Thecal sac compression is seen at L3-4 due to posterior element hypertrophy and associated spondyloli sthesis. There may be disc bulge beyond the spondylolisthesis contributing to stenosis. Prominent thecal sac effacement is seen at L4-5 due to disc bulge and posterior element hypertrophy. There is possible compression of the exiting L4 nerve roots in the neural foramina and the right L5 nerve root in the right lateral recess. Less prominent stenoses are seen at other levels as described above. THIS IS AN ELECTRONICALLY VERIFIED FINAL REPORT 06/17/2023 3:20 PM - Electronically signed by Dmitry Manzo MD
[2023-06-17] MEDS: COLACE CAP 100 MG PO PRN (20:28)
[2023-06-17] MEDS: PROTONIX INJ 40 MG VIAL IVP SCH (20:30)
[2023-06-17 23:54] VITALS: O2SAT 95
[2023-06-18 03:52] VITALS: TEMP 97.9
[2023-06-18 06:16] LABS: ALANINE AMINOTRANSFERASE 14 Units/L (12-78); ALKALINE PHOSPHATASE 99 Units/L (46-116); ASPARTATE AMINO TRANSFERASE 13 Units/L (15-37); BLOOD UREA NITROGEN 24 mg/dL (7-18); CALCIUM 8.7 mg/dL (8.5-10.1); CARBON DIOXIDE 31.1 mmol/L (21-32); CHLORIDE 102 mmol/L (98-107); COR CA(FOR HYPOALB) 9.5 mg/dL (8.5-10.1); COR NA(FOR HYPERGLY) 140 mmol/L (136-145); CREATININE 0.84 mg/dL (0.55-1.02); GLUCOSE 118 mg/dL (65-99); POTASSIUM 4.5 mmol/L (3.5-5.1); SODIUM 140 mmol/L (136-145); TOTAL PROTEIN 7.4 g/dL (6.4-8.2); eGFR NON BLACK RACES > 60 (>60)
[2023-06-18 06:17] LABS: HEMOGLOBIN 10.7 g/dL (12.0-16.0); MONOCYTES # (AUTO) 0.8 x10^3/uL (0.3-0.8); WHITE BLOOD COUNT 15.6 X10^3/uL (3.6-10.0)
[2023-06-18 06:24] LABS: BASOPHILS # (AUTO) 0.1 X10^3/uL (0.0-0.1); BASOPHILS % (AUTO) 0.4 % (0.2-1.0); HEMATOCRIT 34.5 % (36.0-47.0); LYMPHOCYTES % (AUTO) 19.5 % (21.0-51.0); MEAN CORPUSCULAR HEMOGLOBIN 19.3 pg (27.0-34.0); MEAN CORPUSCULAR VOLUME 62.3 fL (80.0-100.0); MEAN PLATELET VOLUME 9.3 fL (7.4-11.0); MONOCYTES % (AUTO) 5.4 % (0.0-13.0); NEUTROPHILS # (AUTO) 11.7 x10^3/uL (2.2-4.8); NEUTROPHILS % (AUTO) 74.7 % (42.0-75.0); PLATELET COUNT 275 X10^3/uL (150.0-450.0); RED BLOOD COUNT 5.55 X10^6/uL (3.5-5.4); RED CELL DISTRIBUTION WIDTH 21.2 % (11.6-16.5)
[2023-06-18 06:37] LABS: ANISOCYTOSIS 1+; HYPOCHROMASIA 3+; MICROCYTOSIS 2+; PLATELET MORPHOLOGY COMMENT NORMAL (NORMAL); POIKILOCYTOSIS 1+; TARGET CELLS 1+
[2023-06-18 09:12] VITALS: BP 162/90; PULSE 75; RESP 16
--- NOTE | 2023-06-18 17:31 | PCM.PROG ---
Progress Note Progress Note for Day of Date of Exam: 06/17/23 Subjective Subjective: PT IS 67 BF, DIRECT ADMIT FROM DR CASTELLANOS OFFICE ON 06/15/23 WITH INTRACTABLE LOWER BACK AND LOWER EXTREMITY PAIN. UPON ADMISSION, PATIENT WAS STARTED ON IV SOLU MEDROL, IV HYDRATION, PAIN CONTROL. WE OBTAINED A CHEST XRAY THAT WAS NEGATIVE FOR ACUTE CARDIOPULMONARY PROCESS. PT HAD PREVIOUSLY HAD AN OUTPATIENT CTA CHEST ON 06/05/23 THAT SHOWED THYROMEGALY WITH UPPER MEDIASTINAL LYMPHADENOPATHY. WE OBTAINED A THYROID ULTRASOUND THAT SHOWED MULTINODULAR GOITER, 2 OF THE LARGEST NODULES MEET ACR CRITERIA FOR A FNA, RECOMMEND FOLLOW UP SONOGRAPHY IN 1 YEAR, TI-RADS CATEGORY 3. THYROID LEVELS WERE WNL. WE OBTAINED A UA WITH CULTURE THAT SHOWED >50,000 but <100,000 CFU/ml COLONY COUNT, INDICATES CONTAMINATION. SHE HAD AN MRI LUMBAR SPINE THIS MORNING, PENDING RESULTS. AM LABS: WBC 14.7,HGB 10.4, BUN 20/CREATININE 0.83. MORNING VITALS: 138/75-85-20-98.0-96% ROOM AIR. Past Medical Family Social History Allergies: Allergies No Known Drug Allergies Allergy (Unknown, Verified 06/05/23 09:52) Onset Date: 06/16/2020 Vital Signs and I&O's Vital Signs: Vital Signs Temperature 98.1 F Temperature 98 F Pulse Rate [Brachial] 82 Pulse Rate [Brachial] 85 Pulse Rate 85 Respiratory Rate 20 Respiratory Rate 20 Blood Pressure [Left Arm] 139/81 Blood Pressure [Left Arm] 138/75 O2 Sat by Pulse Oximetry 96 O2 Sat by Pulse Oximetry 98 O2 Sat by Pulse Oximetry 96 Intake and Output: Intake & Output 06/15/23 06/16/23 06/17/23 06/18/23 11:59 11:59 11:59 11:59 Intake Total 401 / 401 1760 / 1760 255 / 255 Balance 401 / 401 1760 / 1760 255 / 255 Physical Exam Oriented: Normal Eyes: Normal Ear: Normal Nose: Normal Throat: Normal Cardiovascular: Edema Tenderness: Normal Skin: Decreased Turgur Musculoskeletal: Back:Lumbar and Motor Deficit Psychiatric: Normal Mood Description: Anxious Affect: Depressed Speech Pattern: Clear and Appropriate Laboratory and Diagnostics 06/18/23 05:28 06/18/23 05:28 Labs: 06/16/23 09:35 Urine,Clean Catch Urine Culture - Final Laboratory WBC 14.7 X10^3/uL (3.6-10.0) H 06/17/23 05:25 RBC 5.41 X10^6/uL (3.5-5.4) H 06/17/23 05:25 Hgb 10.4 g/dL (12.0-16.0) L 06/17/23 05:25 Hct 33.4 % (36.0-47.0) L 06/17/23 05:25 MCV 61.8 fL (80.0-100.0) L 06/17/23 05:25 MCH 19.2 pg (27.0-34.0) L 06/17/23 05:25 MCHC 31.0 g/dL (33.0-35.0) L 06/17/23 05:25 RDW 21.3 % (11.6-16.5) H 06/17/23 05:25 Plt Count 300 X10^3/uL (150.0-450.0) 06/17/23 05:25 Plt Count Comment Adequate (ADEQUATE) 06/17/23 05:25 MPV 9.0 fL (7.4-11.0) 06/17/23 05:25 Neut % (Auto) 68.8 % (42.0-75.0) 06/17/23 05:25 Lymph % (Auto) 27.5 % (21.0-51.0) 06/17/23 05:25 [place] % (Auto) 3.3 % (0.0-13.0) 06/17/23 05:25 Eos % (Auto) 0.0 % (0.9-2.9) L 06/17/23 05:25 Baso % (Auto) 0.4 % (0.2-1.0) 06/17/23 05:25 Neut # (Auto) 10.1 x10^3/uL (2.2-4.8) H 06/17/23 05:25 Lymph # (Auto) 4.0 X10^3/uL (1.3-2.9) H 06/17/23 05:25 [place] # (Auto) 0.5 x10^3/uL (0.3-0.8) 06/17/23 05:25 Eos # (Auto) 0.0 x10^3/uL (0.0-0.2) 06/17/23 05:25 Baso # (Auto) 0.1 X10^3/uL (0.0-0.1) 06/17/23 05:25 Absolute Nucleated RBC 0.1 /100WBC 06/17/23 05:25 Total Counted 100 06/16/23 05:48 Neutrophils % (Manual) 79 % (39-76) H 06/16/23 05:48 Lymphocytes % (Manual) 10 % (13-43) L 06/16/23 05:48 Monocytes % (Manual) 11 % (4-9) H 06/16/23 05:48 Plt Clumps, EDTA Few 06/16/23 05:48 Plt Morphology Comment Normal (NORMAL) 06/17/23 05:25 RBC Morphology Abnormal (NORMAL) A 06/17/23 05:25 Hypochromasia 3+ A 06/17/23 05:25 Poikilocytosis 1+ A 06/17/23 05:25 Anisocytosis 1+ A 06/17/23 05:25 Microcytosis 2+ A 06/17/23 05:25 Target Cells 2+ A 06/17/23 05:25 ESR 58 MM/HOUR (0-20) H 06/15/23 19:18 Sodium 137 mmol/L (136-145) 06/17/23 05:25 Corrected Sodium 138 mmol/L (136-145) 06/17/23 05:25 Potassium 4.8 mmol/L (3.5-5.1) 06/17/23 05:25 Chloride 102 mmol/L (98-107) 06/17/23 05:25 Carbon Dioxide 27.5 mmol/L (21-32) 06/17/23 05:25 BUN 20 mg/dL (7-18) H 06/17/23 05:25 Creatinine 0.83 mg/dL (0.55-1.02) 06/17/23 05:25 Est GFR (MDRD) Af Amer > 60 (>60) 06/17/23 05:25 Est GFR (MDRD) Non-Af > 60 (>60) 06/17/23 05:25 Glucose 131 mg/dL (65-99) H 06/17/23 05:25 Calcium 8.9 mg/dL (8.5-10.1) 06/17/23 05:25 Corrected Calcium 9.7 mg/dL (8.5-10.1) 06/17/23 05:25 Magnesium 2.1 mg/dL (2.0-2.9) 06/16/23 05:48 Total Bilirubin 0.20 mg/dL (0.2-1.0) 06/17/23 05:25 AST 16 Units/L (15-37) 06/17/23 05:25 ALT 13 Units/L (12-78) 06/17/23 05:25 Alkaline Phosphatase 101 Units/L (46-116) 06/17/23 05:25 C-Reactive Protein 10.50 mg/L (0-3.0) H 06/15/23 19:18 Total Protein 7.2 g/dL (6.4-8.2) 06/17/23 05:25 Albumin 3.0 g/dL (3.4-5.0) L 06/17/23 05:25 Globulin 4.2 g/dL (2.5-4.5) 06/17/23 05:25 Albumin/Globulin Ratio 0.7 Ratio (1.1-2.1) L 06/17/23 05:25 Free T4 1.33 ng/dL (0.76-1.46) 06/16/23 08:34 TSH 3rd Generation 0.441 uIU/mL (0.358-3.74) 06/16/23 08:34 Specimen Type Clean catch urine 06/16/23 09:35 Urine Color Yellow (YELLOW) 06/16/23 09:35 Urine Appearance Slightly hazy (CLEAR) 06/16/23 09:35 Urine pH 6.0 (5.0 - 8.0) 06/16/23 09:35 Ur Specific [place] 1.020 (1.000-1.030) 06/16/23 09:35 Urine Protein Negative (NEGATIVE) 06/16/23 09:35 Urine Glucose (UA) Negative (NEGATIVE) 06/16/23 09:35 Urine Ketones Negative (NEGATIVE) 06/16/23 09:35 Urine Blood 1+ (NEGATIVE) 06/16/23 09:35 Urine Nitrite Negative (NEGATIVE) 06/16/23 09:35 Urine Bilirubin Negative (NEGATIVE) 06/16/23 09:35 Urine Urobilinogen Normal (NORMAL) 06/16/23 09:35 Ur Leukocyte Esterase Negative (NEGATIVE) 06/16/23 09:35 Urine RBC 0-2 /HPF (0-3) 06/16/23 09:35 Urine WBC 0-2 /HPF (0-5) 06/16/23 09:35 Ur Squamous Epith Cells Few /HPF (NEGATIVE) 06/16/23 09:35 Urine Bacteria Trace /HPF (NEGATIVE) 06/16/23 09:35 Urine Mucus Few /HPF (NEGATIVE) 06/16/23 09:35 Ur Culture Indicated? Yes/culture set up 06/16/23 09:35 Plan (1) DJD (degenerative joint disease) of cervical spine: Status: Acute Qualifiers: Spinal osteoarthritis complication: with radiculopathy Qualified Code(s): M47.22 - Other spondylosis with radiculopathy, cervical region Plan: CONTINUE IV HYDRATION, IV SOLU MEDROL, PAIN CONTROL, PT/OT. (2) COPD exacerbation: Status: Acute (3) CHF (congestive heart failure): Status: Acute Qualifiers: Congestive heart failure chronicity: chronic Congestive heart failure type: systolic Qualified Code(s): I50.22 - Chronic systolic (congestive) heart failure (4) Hypertension: Status: Acute (5) Lumbar spine pain: Status: Acute (6) Leg weakness, bilateral: Status: Acute
--- NOTE | 2023-06-18 17:31 | PCM.PROG ---
Progress Note Progress Note for Day of Date of Exam: 06/16/23 Subjective Subjective: PT IS 67 BF, DIRECT ADMIT FROM DR CASTELLANOS OFFICE WITH INTRACTABLE LOWER BACK AND LOWER EXTREMITY PAIN. UPON ADMISSION, PATIENT WAS STARTED ON IV SOLU MEDROL, IV HYDRATION. ADMISSION LABS: WBC 9.8, HGB 11.4, BUN 16/CREATININE 0.82, CRP 10.5. AM LABS: WBC 9.2, HGB 10.7, BUN 16/CREATININE 0.82. AM VITALS: 128/60-72-98.1-18-95%. PT HAD AN OUTPATIENT CTA CHEST ON 06/05/23 THAT SHOWED THYROMEGALY WITH UPPER MEDIASTINAL LYMPHADENOPATHY. SHE HAD BEEN ORDERED FOR A THYROID ULTRASOUND TO FURTHER EVALUATE- PENDING OUTPATIENT SCHEDULING. Past Medical Family Social History Allergies: Allergies No Known Drug Allergies Allergy (Unknown, Verified 06/05/23 09:52) Onset Date: 06/16/2020 Vital Signs and I&O's Vital Signs: Vital Signs Temperature 98.6 F Temperature 97.7 F Pulse Rate [Left Apical] 87 Pulse Rate [Left Apical] 76 Respiratory Rate 21 Respiratory Rate 18 Respiratory Rate 18 Respiratory Rate 18 Blood Pressure [Left Arm] 137/79 Blood Pressure [Left Arm] 132/64 O2 Sat by Pulse Oximetry 97 O2 Sat by Pulse Oximetry 96 Intake and Output: Intake & Output 06/14/23 06/15/23 06/16/23 06/17/23 11:59 11:59 11:59 11:59 Intake Total 401 / 401 184 / 184 Balance 401 / 401 184 / 184 Physical Exam Oriented: Normal Eyes: Normal Ear: Normal Nose: Normal Throat: Normal Cardiovascular: Edema Tenderness: Normal Skin: Decreased Turgur Musculoskeletal: Back:Lumbar and Motor Deficit Psychiatric: Normal Mood Description: Anxious Affect: Depressed Speech Pattern: Clear and Appropriate Laboratory and Diagnostics 06/18/23 05:28 06/18/23 05:28 Labs: Laboratory WBC 9.2 X10^3/uL (3.6-10.0) 06/16/23 05:48 RBC 5.51 X10^6/uL (3.5-5.4) H 06/16/23 05:48 Hgb 10.7 g/dL (12.0-16.0) L 06/16/23 05:48 Hct 34.2 % (36.0-47.0) L 06/16/23 05:48 MCV 62.1 fL (80.0-100.0) L 06/16/23 05:48 MCH 19.5 pg (27.0-34.0) L 06/16/23 05:48 MCHC 31.3 g/dL (33.0-35.0) L 06/16/23 05:48 RDW 21.5 % (11.6-16.5) H 06/16/23 05:48 Plt Count 223 X10^3/uL (150.0-450.0) 06/16/23 05:48 Plt Count Comment Adequate (ADEQUATE) 06/16/23 05:48 MPV 8.9 fL (7.4-11.0) 06/16/23 05:48 Neut % (Auto) 83.4 % (42.0-75.0) H 06/16/23 05:48 Lymph % (Auto) 5.7 % (21.0-51.0) L 06/16/23 05:48 [place] % (Auto) 10.3 % (0.0-13.0) 06/16/23 05:48 Eos % (Auto) 0.1 % (0.9-2.9) L 06/16/23 05:48 Baso % (Auto) 0.5 % (0.2-1.0) 06/16/23 05:48 Neut # (Auto) 7.7 x10^3/uL (2.2-4.8) H 06/16/23 05:48 Lymph # (Auto) 0.5 X10^3/uL (1.3-2.9) L 06/16/23 05:48 [place] # (Auto) 0.9 x10^3/uL (0.3-0.8) H 06/16/23 05:48 Eos # (Auto) 0.0 x10^3/uL (0.0-0.2) 06/16/23 05:48 Baso # (Auto) 0.0 X10^3/uL (0.0-0.1) 06/16/23 05:48 Absolute Nucleated RBC 0.0 /100WBC 06/16/23 05:48 Total Counted 100 06/16/23 05:48 Neutrophils % (Manual) 79 % (39-76) H 06/16/23 05:48 Lymphocytes % (Manual) 10 % (13-43) L 06/16/23 05:48 Monocytes % (Manual) 11 % (4-9) H 06/16/23 05:48 Plt Clumps, EDTA Few 06/16/23 05:48 Plt Morphology Comment Normal (NORMAL) 06/16/23 05:48 RBC Morphology Abnormal (NORMAL) A 06/16/23 05:48 Hypochromasia 3+ A 06/16/23 05:48 Anisocytosis 1+ A 06/16/23 05:48 Microcytosis 2+ A 06/16/23 05:48 Target Cells 1+ A 06/16/23 05:48 ESR 58 MM/HOUR (0-20) H 06/15/23 19:18 Sodium 139 mmol/L (136-145) 06/16/23 05:48 Corrected Sodium 140 mmol/L (136-145) 06/16/23 05:48 Potassium 4.7 mmol/L (3.5-5.1) 06/16/23 05:48 Chloride 104 mmol/L (98-107) 06/16/23 05:48 Carbon Dioxide 27.0 mmol/L (21-32) 06/16/23 05:48 BUN 16 mg/dL (7-18) 06/16/23 05:48 Creatinine 0.82 mg/dL (0.55-1.02) 06/16/23 05:48 Est GFR (MDRD) Af Amer > 60 (>60) 06/16/23 05:48 Est GFR (MDRD) Non-Af > 60 (>60) 06/16/23 05:48 Glucose 129 mg/dL (65-99) H 06/16/23 05:48 Calcium 8.6 mg/dL (8.5-10.1) 06/16/23 05:48 Corrected Calcium 9.6 mg/dL (8.5-10.1) 06/16/23 05:48 Magnesium 2.1 mg/dL (2.0-2.9) 06/16/23 05:48 Total Bilirubin 0.30 mg/dL (0.2-1.0) 06/16/23 05:48 AST 14 Units/L (15-37) L 06/16/23 05:48 ALT 17 Units/L (12-78) 06/16/23 05:48 Alkaline Phosphatase 107 Units/L (46-116) 06/16/23 05:48 C-Reactive Protein 10.50 mg/L (0-3.0) H 06/15/23 19:18 Total Protein 7.1 g/dL (6.4-8.2) 06/16/23 05:48 Albumin 2.8 g/dL (3.4-5.0) L 06/16/23 05:48 Globulin 4.3 g/dL (2.5-4.5) 06/16/23 05:48 Albumin/Globulin Ratio 0.7 Ratio (1.1-2.1) L 06/16/23 05:48 Free T4 1.33 ng/dL (0.76-1.46) 06/16/23 08:34 TSH 3rd Generation 0.441 uIU/mL (0.358-3.74) 06/16/23 08:34 Specimen Type Clean catch urine 06/16/23 09:35 Urine Color Yellow (YELLOW) 06/16/23 09:35 Urine Appearance Slightly hazy (CLEAR) 06/16/23 09:35 Urine pH 6.0 (5.0 - 8.0) 06/16/23 09:35 Ur Specific [place] 1.020 (1.000-1.030) 06/16/23 09:35 Urine Protein Negative (NEGATIVE) 06/16/23 09:35 Urine Glucose (UA) Negative (NEGATIVE) 06/16/23 09:35 Urine Ketones Negative (NEGATIVE) 06/16/23 09:35 Urine Blood 1+ (NEGATIVE) 06/16/23 09:35 Urine Nitrite Negative (NEGATIVE) 06/16/23 09:35 Urine Bilirubin Negative (NEGATIVE) 06/16/23 09:35 Urine Urobilinogen Normal (NORMAL) 06/16/23 09:35 Ur Leukocyte Esterase Negative (NEGATIVE) 06/16/23 09:35 Urine RBC 0-2 /HPF (0-3) 06/16/23 09:35 Urine WBC 0-2 /HPF (0-5) 06/16/23 09:35 Ur Squamous Epith Cells Few /HPF (NEGATIVE) 06/16/23 09:35 Urine Bacteria Trace /HPF (NEGATIVE) 06/16/23 09:35 Urine Mucus Few /HPF (NEGATIVE) 06/16/23 09:35 Ur Culture Indicated? Yes/culture set up 06/16/23 09:35 Plan (1) DJD (degenerative joint disease) of cervical spine: Status: Acute Qualifiers: Spinal osteoarthritis complication: with radiculopathy Qualified Code(s): M47.22 - Other spondylosis with radiculopathy, cervical region Plan: OBTAIN UA, THYROID ULTRASOUND, MRI LUMBAR SPINE, PT/OT. CONTINUE IV HYDRATION, IV SOLU MEDROL. (2) COPD exacerbation: Status: Acute (3) CHF (congestive heart failure): Status: Acute Qualifiers: Congestive heart failure chronicity: chronic Congestive heart failure type: systolic Qualified Code(s): I50.22 - Chronic systolic (congestive) heart failure (4) Hypertension: Status: Acute (5) Lumbar spine pain: Status: Acute (6) Leg weakness, bilateral: Status: Acute
--- NOTE | 2023-06-18 17:32 | PCM.DCPLAN ---
DISCHARGE SUMMARY Admission Date Date of Admission: 06/15/23 Discharge Date Discharge Date: 06/18/23 Admission Diagnoses (1) DJD (degenerative joint disease) of cervical spine: Status: Acute (2) COPD exacerbation: Status: Acute (3) CHF (congestive heart failure): Status: Acute (4) Hypertension: Status: Acute (5) Lumbar spine pain: Status: Acute (6) Leg weakness, bilateral: Status: Acute Discharge Diagnoses Discharge Diagnosis: Same as admission Discharge Medications Discharge Medications: Home Medication List cyclobenzaprine 10 mg tablet 10 mg PO Q8H PRN Muscle Spasm 10 days #30 tabs 06/18/23 [Rx] gabapentin 100 mg capsule 100 - 200 mg PO Q8H 10 days #30 caps 06/18/23 [Rx] prednisone 10 mg tablet 10 mg PO DIRECTED 9 days #18 tabs 06/18/23 [Rx] Prescriptions: cyclobenzaprine STEPHON,JULIANN gabapentin [facility] prednisone STEPHON,[facility] Hospital Course Vital Signs: Vital Signs Temperature 97.9 F Pulse Rate [Left Brachial] 75 Respiratory Rate 16 Blood Pressure [Left Arm] 162/90 O2 Sat by Pulse Oximetry 95 Latest Lab Results: Laboratory Last Values WBC 15.6 X10^3/uL (3.6-10.0) H 06/18/23 05:28 RBC 5.55 X10^6/uL (3.5-5.4) H 06/18/23 05:28 Hgb 10.7 g/dL (12.0-16.0) L 06/18/23 05:28 Hct 34.5 % (36.0-47.0) L 06/18/23 05:28 MCV 62.3 fL (80.0-100.0) L 06/18/23 05:28 MCH 19.3 pg (27.0-34.0) L 06/18/23 05:28 MCHC 31.0 g/dL (33.0-35.0) L 06/18/23 05:28 RDW 21.2 % (11.6-16.5) H 06/18/23 05:28 Plt Count 275 X10^3/uL (150.0-450.0) 06/18/23 05:28 Plt Count Comment Adequate (ADEQUATE) 06/18/23 05:28 MPV 9.3 fL (7.4-11.0) 06/18/23 05:28 Neut % (Auto) 74.7 % (42.0-75.0) 06/18/23 05:28 Lymph % (Auto) 19.5 % (21.0-51.0) L 06/18/23 05:28 [place] % (Auto) 5.4 % (0.0-13.0) 06/18/23 05:28 Eos % (Auto) 0.0 % (0.9-2.9) L 06/18/23 05:28 Baso % (Auto) 0.4 % (0.2-1.0) 06/18/23 05:28 Neut # (Auto) 11.7 x10^3/uL (2.2-4.8) H 06/18/23 05:28 Lymph # (Auto) 3.0 X10^3/uL (1.3-2.9) H 06/18/23 05:28 [place] # (Auto) 0.8 x10^3/uL (0.3-0.8) 06/18/23 05:28 Eos # (Auto) 0.0 x10^3/uL (0.0-0.2) 06/18/23 05:28 Baso # (Auto) 0.1 X10^3/uL (0.0-0.1) 06/18/23 05:28 Absolute Nucleated RBC 0.1 /100WBC 06/18/23 05:28 Total Counted 100 06/16/23 05:48 Neutrophils % (Manual) 79 % (39-76) H 06/16/23 05:48 Lymphocytes % (Manual) 10 % (13-43) L 06/16/23 05:48 Monocytes % (Manual) 11 % (4-9) H 06/16/23 05:48 Plt Clumps, EDTA Few 06/16/23 05:48 Plt Morphology Comment Normal (NORMAL) 06/18/23 05:28 RBC Morphology Abnormal (NORMAL) A 06/18/23 05:28 Hypochromasia 3+ A 06/18/23 05:28 Poikilocytosis 1+ A 06/18/23 05:28 Anisocytosis 1+ A 06/18/23 05:28 Microcytosis 2+ A 06/18/23 05:28 Target Cells 1+ A 06/18/23 05:28 ESR 58 MM/HOUR (0-20) H 06/15/23 19:18 Sodium 140 mmol/L (136-145) 06/18/23 05:28 Corrected Sodium 140 mmol/L (136-145) 06/18/23 05:28 Potassium 4.5 mmol/L (3.5-5.1) 06/18/23 05:28 Chloride 102 mmol/L (98-107) 06/18/23 05:28 Carbon Dioxide 31.1 mmol/L (21-32) 06/18/23 05:28 BUN 24 mg/dL (7-18) H 06/18/23 05:28 Creatinine 0.84 mg/dL (0.55-1.02) 06/18/23 05:28 Est GFR (MDRD) Af Amer > 60 (>60) 06/18/23 05:28 Est GFR (MDRD) Non-Af > 60 (>60) 06/18/23 05:28 Glucose 118 mg/dL (65-99) H 06/18/23 05:28 Calcium 8.7 mg/dL (8.5-10.1) 06/18/23 05:28 Corrected Calcium 9.5 mg/dL (8.5-10.1) 06/18/23 05:28 Magnesium 2.1 mg/dL (2.0-2.9) 06/16/23 05:48 Total Bilirubin 0.20 mg/dL (0.2-1.0) 06/18/23 05:28 AST 13 Units/L (15-37) L 06/18/23 05:28 ALT 14 Units/L (12-78) 06/18/23 05:28 Alkaline Phosphatase 99 Units/L (46-116) 06/18/23 05:28 C-Reactive Protein 10.50 mg/L (0-3.0) H 06/15/23 19:18 Total Protein 7.4 g/dL (6.4-8.2) 06/18/23 05:28 Albumin 3.0 g/dL (3.4-5.0) L 06/18/23 05:28 Globulin 4.4 g/dL (2.5-4.5) 06/18/23 05:28 Albumin/Globulin Ratio 0.7 Ratio (1.1-2.1) L 06/18/23 05:28 Free T4 1.33 ng/dL (0.76-1.46) 06/16/23 08:34 TSH 3rd Generation 0.441 uIU/mL (0.358-3.74) 06/16/23 08:34 Specimen Type Clean catch urine 06/16/23 09:35 Urine Color Yellow (YELLOW) 06/16/23 09:35 Urine Appearance Slightly hazy (CLEAR) 06/16/23 09:35 Urine pH 6.0 (5.0 - 8.0) 06/16/23 09:35 Ur Specific [place] 1.020 (1.000-1.030) 06/16/23 09:35 Urine Protein Negative (NEGATIVE) 06/16/23 09:35 Urine Glucose (UA) Negative (NEGATIVE) 06/16/23 09:35 Urine Ketones Negative (NEGATIVE) 06/16/23 09:35 Urine Blood 1+ (NEGATIVE) 06/16/23 09:35 Urine Nitrite Negative (NEGATIVE) 06/16/23 09:35 Urine Bilirubin Negative (NEGATIVE) 06/16/23 09:35 Urine Urobilinogen Normal (NORMAL) 06/16/23 09:35 Ur Leukocyte Esterase Negative (NEGATIVE) 06/16/23 09:35 Urine RBC 0-2 /HPF (0-3) 06/16/23 09:35 Urine WBC 0-2 /HPF (0-5) 06/16/23 09:35 Ur Squamous Epith Cells Few /HPF (NEGATIVE) 06/16/23 09:35 Urine Bacteria Trace /HPF (NEGATIVE) 06/16/23 09:35 Urine Mucus Few /HPF (NEGATIVE) 06/16/23 09:35 Ur Culture Indicated? Yes/culture set up 06/16/23 09:35 Hospital Course: PT IS 67 BF, DIRECT ADMIT FROM DR CASTELLANOS OFFICE ON 06/15/23 WITH INTRACTABLE LOWER BACK AND LOWER EXTREMITY PAIN. UPON ADMISSION, PATIENT WAS STARTED ON IV SOLU MEDROL, IV HYDRATION, PAIN CONTROL. WE OBTAINED A CHEST XRAY THAT WAS NEGATIVE FOR ACUTE CARDIOPULMONARY PROCESS. PT HAD PREVIOUSLY HAD AN OUTPATIENT CTA CHEST ON 06/05/23 THAT SHOWED THYROMEGALY WITH UPPER MEDIASTINAL LYMPHADEN OPATHY. WE OBTAINED A THYROID ULTRASOUND THAT SHOWED MULTINODULAR GOITER, 2 OF THE LARGEST NODULES MEET ACR CRITERIA FOR A FNA, RECOMMEND FOLLOW UP SONOGRAPHY IN 1 YEAR, TI-RADS CATEGORY 3. THYROID LEVELS WERE WNL. WE OBTAINED A UA WITH CULTURE THAT SHOWED >50,000 but <100,000 CFU/ml COLONY COUNT, INDICATES CONTAMINATION. SHE HAD AN MRI LUMBAR SPINE YESTERDAY MORNING THAT SHOWED "THECAL SAC COMPRESSION SEEN AT L3-4 DUE TO POSTERIOR ELEMENT HYPERTROPHY AND ASSOCIATED SPONDYLOLISTHESIS. THERE MAY BE A DISC BULGE BEYOND THE SPONDYLOLISTHESIS CONTRIBUTING TO STENOSIS. PROMINENT THECAL SAC EFFACEMENT IS SEEN AT L4-5 DUE TO DISC BULGE AND POSTERIOR ELEMENT HYPERTROPHY. THERE IS POSSIBLE COMPRESSION OF THE EXITING L4 NERVE ROOT IN THE NEURAL FORAMINA AND THE RIGHT L5 NERVE ROOT IN THE RIGHT LATERAL RECESS. LESS PROMINENT STENOSIS ARE SEEN AT OTHER LEVELS DESCRIBED ABOVE. AM LABS: WBC 15.6, HGB 10.7, BUN 24/CREATININE 0.84. MORNING VITALS: 162/90-75-97.9-16-95% ROOM AIR. PATIENT STATES THAT SHE IS FEELING MUCH IMPROVED, SO WE WILL ALLOW HER TO DISCHARGE HOME ON PREDNISONE, GABAPENTIN, FLEXERIL. SHE WILL NEED TO FOLLOW UP WITH HER PCP, DR. HECK FOR THYROID NODULES, AND DR. FISH FOR CHRONIC BACK PAIN. PLEASE SEE DISCHARGE PLAN FOR LIST OF DISCHARGE MEDICATIONS AND MODIFICATIONS THAT WE MADE, ELECTRONIC MEDICAL RECORD FOR DIAGNOSTIC TEST AND LABS. THE PATIENT WAS INSTRUCTED TO RETURN TO ER IF CONDITION CHANGED OR WORSENED UNEXPECTEDLY.
== END 2023-06-18 11:42 | disposition home or self-care (01) ==
LOC: MED/SURG
PROVIDERS: ADMIT Internal Medicine; ATTEND Internal Medicine
DX: R20.2 Paresthesia of skin; I50.22 Chronic systolic (congestive) heart failure; R70.0 Elevated erythrocyte sedimentation rate; M47.22 Other spondylosis with radiculopathy, cervical region; J44.1 Chronic obstructive pulmonary disease with (acute) exacerbation; M79.605 Pain in left leg; M54.59 Other low back pain; R06.02 Shortness of breath; R53.1 Weakness; R26.89 Other abnormalities of gait and mobility; I11.0 Hypertensive heart disease with heart failure; E04.2 Nontoxic multinodular goiter; M79.604 Pain in right leg; R79.89 Other specified abnormal findings of blood chemistry

== ENCOUNTER 2024-10-11 08:17 | Inpatient (IN) ==
--- NOTE | 2024-10-11 08:30 | DR.SOBA ---
HPI Time Seen Time Seen by Provider: 10/11/24 08:29 Complaints Chief Complaint Doctors Comments: This patient states she has been short of breath for about 2 to 3 days got worse this morning. States she did give her several on her albuterol HFA's 2 puffs this morning and she took all of her regular medications this morning also. She denied chest pain. PMH PMH Past Medical History: Anxiety, Arthritis, CHF, COPD, Coronary Artery Disease, GERD, Hypertension and Sleep Apnea Past Surgical History: Yes Surgical History: Cholecystectomy and Hysterectomy Family History Family Medical History: Heart Failure Social History Do you use any recreational Drugs:: No ROS Review of Systems Constitutional: Other (Shortness of breath) Eyes: No Symptoms Reported ENTM: No Symptoms Reported Respiratoy: Short of Breath Cardiovascular: No Symptoms Reported Gastrointestinal/Abdominal: Nausea Genitourinary: No Symptoms Reported Neurological: No Symptoms Reported Musculoskeletal: No Symptoms Reported Integumentary: No Symptoms Reported Hematologic/Lymphatic: No Symptoms Reported Endocrine: No Symptoms Reported Psychiatric: No Symptoms Reported All Other Systems: Reviewed and Negative PE Vital Signs Vitals: Vital Signs Temperature 98.4 F Temperature 100.2 F Temperature 102.4 F Temperature 100.4 F Pulse Rate 83 Pulse Rate 85 Pulse Rate 86 Pulse Rate 84 Pulse Rate 88 Pulse Rate 90 Pulse Rate 91 Pulse Rate 90 Pulse Rate 90 Pulse Rate 90 Pulse Rate 91 Pulse Rate 91 Pulse Rate 90 Pulse Rate 92 Pulse Rate 96 Pulse Rate 92 Pulse Rate 93 Pulse Rate 96 Pulse Rate 98 Pulse Rate 90 Pulse Rate 89 Pulse Rate 88 Pulse Rate 90 Pulse Rate 88 Pulse Rate 89 Pulse Rate 91 Pulse Rate 98 Pulse Rate 91 Pulse Rate 92 Pulse Rate 95 Respiratory Rate 20 Respiratory Rate 17 Respiratory Rate 19 Respiratory Rate 29 Respiratory Rate 29 Respiratory Rate 21 Respiratory Rate 35 Respiratory Rate 27 Respiratory Rate 25 Respiratory Rate 22 Respiratory Rate 26 Respiratory Rate 22 Respiratory Rate 16 Respiratory Rate 24 Respiratory Rate 13 Respiratory Rate 25 Respiratory Rate 23 Respiratory Rate 18 Respiratory Rate 37 Respiratory Rate 32 Respiratory Rate 24 Respiratory Rate 26 Respiratory Rate 27 Respiratory Rate 26 Respiratory Rate 27 Blood Pressure 148/65 Blood Pressure 144/65 Blood Pressure 151/72 Blood Pressure 149/70 Blood Pressure 150/67 Blood Pressure 150/67 Blood Pressure 152/67 Blood Pressure 152/67 Blood Pressure 150/64 Blood Pressure 159/66 Blood Pressure 165/86 Blood Pressure 165/86 Blood Pressure 165/86 Blood Pressure 178/72 Blood Pressure 179/77 Blood Pressure 179/77 Blood Pressure 189/77 Blood Pressure 189/77 Blood Pressure 197/80 Blood Pressure 175/79 O2 Sat by Pulse Oximetry 100 O2 Sat by Pulse Oximetry 98 O2 Sat by Pulse Oximetry 100 O2 Sat by Pulse Oximetry 99 O2 Sat by Pulse Oximetry 98 O2 Sat by Pulse Oximetry 100 O2 Sat by Pulse Oximetry 97 O2 Sat by Pulse Oximetry 98 O2 Sat by Pulse Oximetry 95 O2 Sat by Pulse Oximetry 98 O2 Sat by Pulse Oximetry 97 O2 Sat by Pulse Oximetry 98 O2 Sat by Pulse Oximetry 99 O2 Sat by Pulse Oximetry 98 O2 Sat by Pulse Oximetry 98 O2 Sat by Pulse Oximetry 99 O2 Sat by Pulse Oximetry 97 O2 Sat by Pulse Oximetry 95 O2 Sat by Pulse Oximetry 99 O2 Sat by Pulse Oximetry 98 General Limitations: No Limitations General Appearance: In Distress (mild distress) Head Head Exam: Normal Inspection, Atraumatic and Normocephalic Eyes Eye exam: Normal Appearance, PERRL and EOMI ENT ENT Exam: Normal Exam, Normal Oropharynx and Normal External Ear Exam Neck Neck Exam: Normal Inspection Chest Chest Inspection: Normal Inspection and Symmetric Chest Wall Rise Respiratory Respiratory Exam: Normal Lung Sounds Bilat Respiratory Exam: Bilateral: Clear to Auscultation Cardiovascular Cardiovascular Exam: Regular Rate and Normal Rhythm Abdominal Exam Abdominal Exam: Normal Inspection, Normal Bowel Sounds and Soft Extremities Extremities Exam: Normal Inspection Back Back Exam: Normal Inspection Neurologic Neurological Exam: Alert and CN II-XII Intact Psychiatric Psychiatric Exam: Depressed Skin Skin Exam: Warm, Dry and Intact MDM Differential Diagnosis Differential Diagnosis: CHF, COPD, Hyperventilation, Mycardial Infarction, Pneumonia and Sinusitis Differential Diagnosis Comment:: covid,influenza COURSE Treatment Treatment: This patient made relatively stable during ER evaluation. We did do a workup for the shortness of breath and we did a chest x-ray that was negative for infiltrate has had cardiomegaly. We did an EKG that shows sinus rhythm. We did a metabolic panel that was normal did a CBC that WBC was 12.9. The hemoglobin was 13.3 hematocrit 41.5 platelets were 249 we did do a lactic acid level and it was 3.4 we did a D-dimer that was 1.92 we did a COVID respiratory panel that was negative. Since the D-dimer was 1.92 we did do a CTA of the chest was negative for PE but it did show a thyroid goiter that required VV of biopsy and repeat ultrasound. Ultrasound information was relayed to patient's primary care provider. The patient did have the lactic acid sepsis protocol called on which she did get 2 bags of fluids here in the ER last bag of fluid was started at the time of dictation of this note and she also got out Zosyn 3.375 IV. Patient was told the results of this that she was probably uroseptic and we will admit her for treatment of the same. Patient was agreeable to the admission. This patient was presented to case management and they said patient could be a full admission. I spoke to Dr. Mcleod [id number] and he agreed to admit the patient. ROR Labs Reviewed Laboratory Results Reviewed?: Yes 10/11/24 09:23 10/11/24 09:23 Laboratory: WBC 12.9 X10^3/uL (3.6-10.0) H 10/11/24 09: RBC 6.53 X10^6/uL (3.5-5.4) H 10/11/24 09: Hgb 13.3 g/dL (12.0-16.0) 10/11/24 09: Hct 41.5 % (36.0-47.0) 10/11/24 09: MCV 63.5 fL (80.0-100.0) L 10/11/24 09: MCH 20.3 pg (27.0-34.0) L 10/11/24 09: MCHC 32.0 g/dL (33.0-35.0) L 10/11/24 09: RDW 22.9 % (11.6-16.5) H 10/11/24 09: Plt Count 249 X10^3/uL (150.0-450.0) 10/11/24 09: Plt Count Comment Adequate (ADEQUATE) 10/11/24: MPV 8.8 fL (7.4-11.0) 10/11/24: Neut % (Auto) 85.0 % (42.0-75.0) H 10/11/24 09: Lymph % (Auto) 11.1 % (21.0-51.0) L 10/11/24 09: [place] % (Auto) 3.7 % (0.0-13.0) 10/11/24 09:23 Eos % (Auto) 0.1 % (0.9-2.9) L 10/11/24 09:23 Baso % (Auto) 0.1 % (0.2-1.0) L 10/11/24 09:23 Neut # (Auto) 10.9 x10^3/uL (2.2-4.8) H 10/11/24 09:23 Lymph # (Auto) 1.4 X10^3/uL (1.3-2.9) 10/11/24 09:23 [place] # (Auto) 0.5 x10^3/uL (0.3-0.8) 10/11/24 09:23 Eos # (Auto) 0.0 x10^3/uL (0.0-0.2) 10/11/24 09: Baso # (Auto) 0.0 X10^3/uL (0.0-0.1) 10/11/24 09: Absolute Nucleated RBC 0.1 /100WBC 10/11/24 09:23 Plt Morphology Comment Normal (NORMAL) 10/11/24 09:23 RBC Morphology Abnormal (NORMAL) A 10/11/24 09:23 Anisocytosis 2+ A 10/11/24 09: Microcytosis 2+ A 10/11/24 09: Target Cells 1+ A 10/11/24 09: PT 13.0 SECONDS (11.8-14.3) 10/11/24 09:23 INR Target Range - 10/11/24 09: INR 0.97 (0.8-1.3) 10/11/24 09: APTT 25.6 SECONDS (22.9-36.5) 10/11/24 09:23 PTT Comment - 10/11/24 09:23 D-Dimer 1.92 ug/ml (0.0-0.57) H 10/11/24 09:23 Sodium 141 mmol/L (136-145) 10/11/24 09:23 Corrected Sodium TNP 10/11/24 09:23 Potassium 4.2 mmol/L (3.5-5.1) 10/11/24 09:23 Chloride 104 mmol/L (98-107) 10/11/24 09:23 Carbon Dioxide 30.6 mmol/L (21-32) 10/11/24 09:23 BUN 17 mg/dL (7-18) 10/11/24 09:23 Creatinine 0.92 mg/dL (0.55-1.02) 10/11/24 09:23 Est GFR (MDRD) Af Amer > 60 (>60) 10/11/24 09:23 Est GFR (MDRD) Non-Af > 60 (>60) 10/11/24 09:23 Glucose 91 mg/dL (65-99) 10/11/24 09:23 Lactic Acid 2.8 mmol/L (0.4-2.0) H 10/11/24 11:30 Calcium 9.2 mg/dL (8.5-10.1) 10/11/24 09:23 Corrected Calcium TNP 10/11/24 09:23 Total Bilirubin 0.60 mg/dL (0.2-1.0) 10/11/24 09:23 AST 19 Units/L (15-37) 10/11/24 09:23 ALT 17 Units/L (12-78) 10/11/24 09:23 Alkaline Phosphatase 135 Units/L (46-116) H 10/11/24 09:23 Creatine Kinase 200 Units/L (26-192) H 10/11/24 09:23 Troponin I High Sens 14.0 ng/L (4.0-60.0) 10/11/24 11:30 B-Natriuretic Peptide 30.2 pg/mL (0-79) 10/11/24 09:23 Total Protein 8.8 g/dL (6.4-8.2) H 10/11/24 09:23 Albumin 3.9 g/dL (3.4-5.0) 10/11/24 09:23 Globulin 4.9 g/dL (2.5-4.5) H 10/11/24 09:23 Albumin/Globulin Ratio 0.8 Ratio (1.1-2.1) L 10/11/24 09:23 Specimen Type Clean catch urine 10/11/24 09:44 Urine Color Yellow (YELLOW) 10/11/24 09:44 Urine Appearance Hazy (CLEAR) 10/11/24 09:44 Urine pH 7.0 (5.0 - 8.0) 10/11/24 09:44 Ur Specific [place] 1.005 (1.000-1.030) 10/11/24 09:44 Urine Protein 2+ (NEGATIVE) 10/11/24 09:44 Urine Glucose (UA) Negative (NEGATIVE) 10/11/24 09:44 Urine Ketones Negative (NEGATIVE) 10/11/24 09:44 Urine Blood 2+ (NEGATIVE) 10/11/24 09:44 Urine Nitrite Positive (NEGATIVE) 10/11/24 09:44 Urine Bilirubin Negative (NEGATIVE) 10/11/24 09:44 Urine Urobilinogen Normal (NORMAL) 10/11/24 09:44 Ur Leukocyte Esterase 2+ (NEGATIVE) 10/11/24 09:44 Urine RBC 20-30 /HPF (0-3) A 10/11/24 09:44 Urine WBC 30-50 /HPF (0-5) A 10/11/24 09:44 Ur Squamous Epith Cells Few /HPF (NEGATIVE) 10/11/24 09:44 Urine Bacteria 2+ /HPF (NEGATIVE) 10/11/24 09:44 Ur Culture Indicated? Yes/culture set up 10/11/24 09:44 SARS-CoV-2 (PCR) Negative (NEGATIVE) 10/11/24 08:40 Influenza Type A (PCR) Negative (NEGATIVE) 10/11/24 08:40 Influenza Type B (PCR) Negative (NEGATIVE) 10/11/24 08:40 RSV (PCR) Negative (NEGATIVE) 10/11/24 08:40 Opioid Opioid Risk Tool Age (Ankur box if 16-45): No History of Preadolescent Sexual Abuse: No Total: 0 Total Score Risk Category: Low Risk Copyright: Ronni NUNN predicting aberrant behaviors Discharge Plan Diagnosis Discharge Problem: Sepsis, Elevated d-dimer Discharge Plan Patient Disposition: ADMITTED INPATIENT Condition: Stable Orders to Discharge Patient Discharge Orders: Transfer (Routine); Ordered 10/11/24 Ordered By: Wilfredo Metzger
--- NOTE | 2024-10-11 08:54 | EKG ---
Test Reason : dyspnea Blood Pressure : */* mmHG Vent. Rate : 89 BPM Atrial Rate : 89 BPM P-R Int : 194 ms QRS Dur : 76 ms QT Int : 326 ms P-R-T Axes : 51 15 35 degrees QTc Int : 396 ms Normal sinus rhythm Normal ECG No previous ECGs available Confirmed by Jonny Turpin MD ([id number]) on 10/11/2024 10:31:31 AM Referred By: Confirmed By: Jonny Turpin MD
--- NOTE | 2024-10-11 09:05 | RAD ---
EXAMINATION: CHEST, 1 VIEW HISTORY: dyspnea; . COMPARISON STUDY: 06/16/2023 TECHNIQUE: One view FINDINGS: Film is underpenetrated. Mild cardiomegaly. No acute infiltrates. No pneumothorax. Hilar and mediastinal structures and bony structures are unremarkable and unchanged. Tortuous aorta. EKG leads overlie the chest. IMPRESSION: Cardiomegaly. No acute findings. Underpenetrated film THIS IS AN ELECTRONICALLY VERIFIED FINAL REPORT 10/11/2024 8:54 AM - Electronically signed by Dmitry Toribio MD
[2024-10-11] MEDS: ZOFRAN INJ 4 MG VIAL IVP ONE (09:19)
[2024-10-11 09:42] LABS: INR 0.97 (0.8-1.3)
[2024-10-11 09:43] LABS: MEAN PLATELET VOLUME 8.8 fL (7.4-11.0); RED CELL DISTRIBUTION WIDTH 22.9 % (11.6-16.5)
[2024-10-11 09:52] LABS: PLATELET MORPHOLOGY COMMENT NORMAL (NORMAL)
[2024-10-11 09:53] LABS: BLOOD/HEMOGLOBIN,URINE 2+ (NEGATIVE); LEUKOCYTE ESTERASE ,URINE 2+ (NEGATIVE); NITRITES,URINE POSITIVE (NEGATIVE)
[2024-10-11 09:54] LABS: CREATININE 0.92 mg/dL (0.55-1.02); eGFR NON BLACK RACES > 60 (>60)
[2024-10-11] MEDS: OFIRMEV IV 1000 MG VIAL 1,000 MG/100 ML VIAL IV PRN (09:54)
[2024-10-11 10:00] LABS: APPEARANCE,URINE HAZY (CLEAR)
[2024-10-11] MEDS ORDERED: NS 1,000 ML IV 1,000 ML ONE (10:00)
[2024-10-11] MEDS ORDERED: NS 100 ML IV 100 ML ONE (10:00)
[2024-10-11] MEDS: NS 1,000 ML IV 1,000 ML IV ONE ×2 (10:01→12:17)
[2024-10-11] MEDS: ZOSYN VIAL 3.375 GRAMS 3.375 G in NS 100 ML IV 100 ML IV ONE (10:01)
[2024-10-11 10:02] LABS: SQUAMOUS EPITHELIAL CELL,UR FEW /HPF (NEGATIVE)
--- NOTE | 2024-10-11 11:40 | CT ---
EXAM: CTA, CHEST HISTORY: dyspnea,elevated ddimer; COMPARISON: Prior study or studies were utilized for comparison during interpretation with the most relevant dated 06/05/2023 TECHNIQUE: CT images were obtained. Multiplanar reconstructions were created on a separate workstation and used during interpretation. All CT scans at this facility is dose modulation, iterative reconstruction, and/or weight-based dosing as appropriate to reduce radiation to levels as low as reasonably achievable (ALARA). Postprocessing details, radiation dose, and contrast dose (if applicable) are recorded in the patient's medical record. 3D maximum intensity projection images were obtained and evaluated. FINDINGS: Lower Neck: The thyroid is very enlarged, measuring 8.8 x 8.1 cm in maximum axial dimensions Lymph nodes: No visualized cervical, supraclavicular, axillary, mediastinal, or hilar adenopathy Upper abdomen: No acute abnormality identified in the visualized upper abdomen. Cardiomediastinum: No right heart strain. Vascular: The thoracic aorta is widely patent. No significant stenosis of the major branch vessels. There is no thrombus within the pulmonary arteries down to the subsegmental level. Lungs: No suspicious airspace opacity, mass, or nodule. No evidence of traumatic injury. . No effusion or pneumothorax Osseous structures: No acute osseous abnormality. No destructive osseous lesion. IMPRESSION: 1. The thyroid is massively enlarged, but likely similar to the ultrasound dated 06/25/2023. If no thyroid biopsy was completed after thyroid ultrasound last year, recommend diagnostic ultrasound and FNA, as these nodules met criteria for FNA in June of 2023. 2. No PE 3. No pneumonia THIS IS AN ELECTRONICALLY VERIFIED FINAL REPORT 10/11/2024 11:37 AM - Electronically signed by Nino Sawyer MD
[2024-10-11] MEDS: ZOSYN VIAL 3.375 GRAMS 3.375 G in NS 100 ML IV 100 ML IV SCH (13:25)
[2024-10-11] MEDS ORDERED: VENTOLIN or PROAIR HFA IN PRN (13:38)
[2024-10-11] MEDS ORDERED: LASIX PO PRN (13:38)
[2024-10-11 14:18] VITALS: BMI 48.0
[2024-10-11] MEDS: NS 1,000 ML IV 1,000 ML IV SCH (14:28)
[2024-10-11] MEDS: NS 250 ML IV 25 ML IV PRN (21:09)
[2024-10-11] MEDS: MAG-OX TAB PO SCH (21:10)
[2024-10-11] MEDS: PULMICORT NEB TX 0.5 MG NEB SCH (22:48)
[2024-10-12 05:40] LABS: MEAN PLATELET VOLUME 9.1 fL (7.4-11.0); RED CELL DISTRIBUTION WIDTH 23.0 % (11.6-16.5)
[2024-10-12 05:57] LABS: COR CA(FOR HYPOALB) 9.3 mg/dL (8.5-10.1); COR NA(FOR HYPERGLY) 142 mmol/L (136-145); CREATININE 0.70 mg/dL (0.55-1.02); eGFR NON BLACK RACES > 60 (>60)
[2024-10-12 06:25] LABS: PLATELET MORPHOLOGY COMMENT NORMAL (NORMAL)
[2024-10-12] MEDS ORDERED: MAG-OX TAB PO SCH (07:00)
[2024-10-12] MEDS: ZOSYN VIAL 3.375 GRAMS IV ONE (07:30)
[2024-10-12] MEDS: ZOFRAN INJ 4 MG VIAL ONE (07:30)
[2024-10-12] MEDS: OMNIPAQUE 350 mg/mL 100 mL BTL 100 ML ONE (07:34)
[2024-10-12] MEDS: NS 250 ML IV 250 ML IV ONE (07:34)
[2024-10-12] MEDS: PROVENTIL NEB TX 0.083% 2.5MG/ 3ML NEB PRN (08:41)
[2024-10-12] MEDS: SYNTHROID 25 mcg TAB PO SCH (08:47)
[2024-10-12] MEDS: BYSTOLIC PO SCH (08:47)
[2024-10-12] MEDS: LASIX PO SCH (08:47)
[2024-10-12 09:00] LABS: CHOL/HDL RATIO 2.2 (0.0-5.0); TSH (3RD GENERATION) 0.695 uIU/mL (0.358-3.74)
[2024-10-12] MEDS ORDERED: PATIENT'S HOME MEDICATION (Budesonide-Glycopyr-Formoterol [Breztri Aerosphere] 160-9-4.8 m IN SCH (09:00)
[2024-10-12] MEDS ORDERED: PATIENT'S HOME MEDICATION (Budesonide-Formoterol 160-4.5 mcg/actuation HFA aerosol inhaler IN SCH (09:00)
--- NOTE | 2024-10-12 13:23 | DR.H&P ---
H&P History & Physical for Day of: H&P Date: 10/11/24 Chief Complaint Chief Complaint: CCC, SOB, FLU LIKE SYMPTOMS History of Present Illness History of Present Illness: PT IS 69 BF, ER ADMISSION AFTER PRESENTING WITH CO SUDEN ONSET OF FEVER, FLU LIKE ILLNESS. PT HAS PMH OF ASTHMA AND COPD AND SHE HAS BEEN TAKING INHALERS AT HOME. 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 Past Medical History Past Medical History: Anxiety, Arthritis, CHF, COPD, Coronary Artery Disease, GERD, Hypertension and Sleep Apnea Past Surgical History Surgical History: Cholecystectomy, Hysterectomy and Tonsillectomy Family History Family Medical History: Cancer and Hypertension Social History Type of Tobacco Use: Cigarettes Alcohol Use: None Medications Home Medications: Home Medications Medication Instructions Recorded Confirmed Type furosemide 20 mg tablet 20 mg PO DAILY PRN 07/14/16 10/11/24 History nebivolol 5 mg tablet (Bystolic) 5 mg PO QDAY 06/05/23 10/11/24 History albuterol sulfate 90 mcg/actuation 2 puff inhalation Q 6H PRN dyspnea 12/26/23 10/11/24 History aerosol inhaler budesonide 160 mcg-glycopyr 9 1 inh inhalation DAILY 0 10/11/24 10/11/24 History mcg-formot 4.8 mcg/actuation HFA inhaler (Breztri Aerosphere) budesonide-formoterol HFA 160 1 inh inhalation DAILY 0 10/11/24 10/11/24 History mcg-4.5 mcg/actuation aerosol inhaler levothyroxine 25 mcg tablet 25 mcg PO QDAY 10/11/24 History Allergies Allergies Allergy/AdvReac Type Severity Reaction Status Date / Time No Known Drug Allergies Allergy Unknown Verified 10/11/24 08:40 Labs 10/12/24 05:23 10/12/24 05:23 Labs: 10/11/24 09:44 Urine,Clean Catch Urine Culture - Preliminary Laboratory WBC 9.0 X10^3/uL (3.6-10.0) 10/12/24 05:23 RBC 5.40 X10^6/uL (3.5-5.4) 10/12/24 05:23 Hgb 11.0 g/dL (12.0-16.0) L D 10/12/24 05:23 Hct 34.0 % (36.0-47.0) L 10/12/24 05:23 MCV 63.1 fL (80.0-100.0) L 10/12/24 05:23 MCH 20.5 pg (27.0-34.0) L 10/12/24 05:23 MCHC 32.5 g/dL (33.0-35.0) L 10/12/24 05:23 RDW 23.0 % (11.6-16.5) H 10/12/24 05:23 Plt Count 229 X10^3/uL (150.0-450.0) 10/12/24 05:23 Plt Count Comment Adequate (ADEQUATE) 10/12/24 05:23 MPV 9.1 fL (7.4-11.0) 10/12/24 05:23 Neut % (Auto) 61.1 % (42.0-75.0) 10/12/24 05:23 Lymph % (Auto) 26.9 % (21.0-51.0) 10/12/24 05:23 Delta % (Auto) 10.2 % (0.0-13.0) 10/12/24 05:23 Eos % (Auto) 1.3 % (0.9-2.9) 10/12/24 05:23 Baso % (Auto) 0.5 % (0.2-1.0) 10/12/24 05:23 Neut # (Auto) 5.5 x10^3/uL (2.2-4.8) H 10/12/24 05:23 Lymph # (Auto) 2.4 X10^3/uL (1.3-2.9) 10/12/24 05:23 Delta # (Auto) 0.9 x10^3/uL (0.3-0.8) H 10/12/24 05:23 Eos # (Auto) 0.1 x10^3/uL (0.0-0.2) 10/12/24 05:23 Baso # (Auto) 0.0 X10^3/uL (0.0-0.1) 10/12/24 05:23 Absolute Nucleated RBC 0.1 /100WBC 10/12/24 05:23 Plt Morphology Comment Normal (NORMAL) 10/12/24 05:23 RBC Morphology Abnormal (NORMAL) A 10/12/24 05:23 Hypochromasia 2+ A 10/12/24 05:23 Poikilocytosis 1+ A 10/12/24 05:23 Anisocytosis 2+ A 10/12/24 05:23 Microcytosis 2+ A 10/12/24 05:23 Target Cells Slight A 10/12/24 05:23 PT 13.0 SECONDS (11.8-14.3) 10/11/24 09:23 INR Target Range - 10/11/24 09:23 INR 0.97 (0.8-1.3) 10/11/24 09:23 APTT 25.6 SECONDS (22.9-36.5) 10/11/24 09:23 PTT Comment - 10/11/24 09:23 D-Dimer 1.92 ug/ml (0.0-0.57) H 10/11/24 09:23 Sodium 142 mmol/L (136-145) 10/12/24 05:23 Corrected Sodium 142 mmol/L (136-145) 10/12/24 05:23 Potassium 4.0 mmol/L (3.5-5.1) 10/12/24 05:23 Chloride 110 mmol/L (98-107) H 10/12/24 05:23 Carbon Dioxide 28.2 mmol/L (21-32) 10/12/24 05:23 BUN 17 mg/dL (7-18) 10/12/24 05:23 Creatinine 0.70 mg/dL (0.55-1.02) 10/12/24 05:23 Est GFR (MDRD) Af Amer > 60 (>60) 10/12/24 05:23 Est GFR (MDRD) Non-Af > 60 (>60) 10/12/24 05:23 Glucose 119 mg/dL (65-99) H 10/12/24 05:23 Lactic Acid 1.7 mmol/L (0.4-2.0) 10/11/24 13:16 Calcium 8.3 mg/dL (8.5-10.1) L 10/12/24 05:23 Corrected Calcium 9.3 mg/dL (8.5-10.1) 10/12/24 05:23 Total Bilirubin 0.30 mg/dL (0.2-1.0) 10/12/24 05:23 AST 19 Units/L (15-37) 10/12/24 05:23 ALT 19 Units/L (12-78) 10/12/24 05:23 Alkaline Phosphatase 98 Units/L (46-116) 10/12/24 05:23 Creatine Kinase 200 Units/L (26-192) H 10/11/24 09:23 Troponin I High Sens 14.0 ng/L (4.0-60.0) 10/11/24 11:30 B-Natriuretic Peptide 30.2 pg/mL (0-79) 10/11/24 09:23 Total Protein 6.6 g/dL (6.4-8.2) 10/12/24 05:23 Albumin 2.8 g/dL (3.4-5.0) L 10/12/24 05:23 Globulin 3.8 g/dL (2.5-4.5) 10/12/24 05:23 Albumin/Globulin Ratio 0.7 Ratio (1.1-2.1) L 10/12/24 05:23 Triglycerides 30 mg/dL (0-150) 10/12/24 05:23 Cholesterol 130 mg/dL (0-200) 10/12/24 05:23 LDL Cholesterol, Calc 66 mg/dL (0-100) 10/12/24 05:23 HDL Cholesterol 58 mg/dL (40-60) 10/12/24 05:23 Cholesterol/HDL Ratio 2.2 (0.0-5.0) 10/12/24 05:23 Free T4 1.05 ng/dL (0.76-1.46) 10/12/24 05:23 TSH 3rd Generation 0.695 uIU/mL (0.358-3.74) 10/12/24 05:23 Specimen Type Clean catch urine 10/11/24 09:44 Urine Color Yellow (YELLOW) 10/11/24 09:44 Urine Appearance Hazy (CLEAR) 10/11/24 09:44 Urine pH 7.0 (5.0 - 8.0) 10/11/24 09:44 Ur Specific [place] 1.005 (1.000-1.030) 10/11/24 09:44 Urine Protein 2+ (NEGATIVE) 10/11/24 09:44 Urine Glucose (UA) Negative (NEGATIVE) 10/11/24 09:44 Urine Ketones Negative (NEGATIVE) 10/11/24 09:44 Urine Blood 2+ (NEGATIVE) 10/11/24 09:44 Urine Nitrite Positive (NEGATIVE) 10/11/24 09:44 Urine Bilirubin Negative (NEGATIVE) 10/11/24 09:44 Urine Urobilinogen Normal (NORMAL) 10/11/24 09:44 Ur Leukocyte Esterase 2+ (NEGATIVE) 10/11/24 09:44 Urine RBC 20-30 /HPF (0-3) A 10/11/24 09:44 Urine WBC 30-50 /HPF (0-5) A 10/11/24 09:44 Ur Squamous Epith Cells Few /HPF (NEGATIVE) 10/11/24 09:44 Urine Bacteria 2+ /HPF (NEGATIVE) 10/11/24 09:44 Ur Culture Indicated? Yes/culture set up 10/11/24 09:44 SARS-CoV-2 (PCR) Negative (NEGATIVE) 10/11/24 08:40 Influenza Type A (PCR) Negative (NEGATIVE) 10/11/24 08:40 Influenza Type B (PCR) Negative (NEGATIVE) 10/11/24 08:40 RSV (PCR) Negative (NEGATIVE) 10/11/24 08:40 Review of Systems Constitutional: Weakness Eyes: No Symptoms Reported ENT: No Symptoms Reported Respiratory: Cough, Shortness of Breath and Wheezing Cardiovascular: Chest Pain Gastrointestinal: Nausea Genitourinary: Frequency Musculoskeletal: Back Pain Skin: No Symptoms Reported Neurological: No Symptoms Reported Physical Exam Vital Signs: Vital Signs Temperature 97.6 F Temperature 98.5 F Pulse Rate [Right Radial] 59 Pulse Rate [Right Radial] 63 Pulse Rate 66 Respiratory Rate 19 Respiratory Rate 18 Blood Pressure [Right Arm] 139/61 Blood Pressure [Right Arm] 129/68 O2 Sat by Pulse Oximetry 98 O2 Sat by Pulse Oximetry 96 O2 Sat by Pulse Oximetry 98 Oriented: Normal Eyes: Normal Ear: Normal Nose: Discharge Throat: Exudate and Other (THYROMEGALY) Respiratory: Wheezes Throughout, RLL Diminished and LLL Diminished Cardiovascular: Edema Auscultation: Bowel Sounds: Normal Palpation: Normal Tenderness: Normal Skin: Decreased Turgur Musculoskeletal: Back:Lumbar Mood Description: Anxious Speech Pattern: Clear and Appropriate Assessment/Plan (1) Sepsis: Status: Acute Plan: ADMIT, IV ATBX BC, UC AND SPUTUM CULTURE ON ADMISSION SUPPLEMENTAL O2, RESP THERAPY IV HYDRATION, BP CONTROL TSH, FREE T4 ON LABS VERIFY HOME MEDICATIONS ENT REFERRAL ON OP BASIS (2) URTI (acute upper respiratory infection): Status: Acute (3) THORNTON (dyspnea on exertion): Status: Acute (4) CAD (coronary artery disease): Status: Acute (5) Thyroid goiter: Status: Chronic (6) Hypertension: Qualifiers: Hypertension type: primary hypertension Qualified Code(s): I10 - Essential (primary) hypertension Status: Acute
[2024-10-12] MEDS: MAALOX or MYLANTA PO PRN (18:28)
[2024-10-13 05:53] LABS: MEAN PLATELET VOLUME 8.6 fL (7.4-11.0); RED CELL DISTRIBUTION WIDTH 22.9 % (11.6-16.5)
[2024-10-13 06:14] LABS: COR CA(FOR HYPOALB) 9.6 mg/dL (8.5-10.1); CREATININE 0.72 mg/dL (0.55-1.02); eGFR NON BLACK RACES > 60 (>60)
[2024-10-13 06:22] LABS: PLATELET MORPHOLOGY COMMENT NORMAL (NORMAL)
[2024-10-13 08:45] LABS: ABG ALLEN TEST POS; ABG BASE EXCESS 4.1 mmol/L (-2.0-2.0); ABG HCO3 28.5 mmol/L (22-26); ABG OXYGEN SATURATION 98.0 % (90-100); ABG PCO2 41.0 mmHg (35.0-45.0); ABG PH 7.450 (7.35-7.45); ABG PO2 95.0 mmHg (80.0-100.0)
--- NOTE | 2024-10-13 14:43 | RAD ---
EXAM: CHEST, 1 VIEW HISTORY: PNEUMONIA, CHF; COMPARISON: No relevant prior studies were available for comparison at the time of interpretation. TECHNIQUE: CHEST, 1 VIEW FINDINGS: Chest: Lines and tubes: None Mediastinum: Cardiomegaly. Pulmonary vessels: There is pulmonary vascular congestion. Lung [place]: No suspicious airspace opacity. Pleura: No effusion. No pneumothorax. Bones and soft tissues: No acute osseous or soft tissue abnormality. IMPRESSION: 1. Increased volume status THIS IS AN ELECTRONICALLY VERIFIED FINAL REPORT 10/13/2024 2:39 PM - Electronically signed by Nino Sawyer MD
[2024-10-14] MEDS: NS 250 ML IV 250 ML IV ONE (05:46)
[2024-10-14 06:03] LABS: COR CA(FOR HYPOALB) 9.6 mg/dL (8.5-10.1); CREATININE 0.71 mg/dL (0.55-1.02); eGFR NON BLACK RACES > 60 (>60)
[2024-10-14 06:07] LABS: MEAN PLATELET VOLUME 9.2 fL (7.4-11.0); RED CELL DISTRIBUTION WIDTH 22.8 % (11.6-16.5)
[2024-10-14 06:25] LABS: PLATELET MORPHOLOGY COMMENT NORMAL (NORMAL)
[2024-10-14] MEDS: CARAFATE ORAL SUSP PO SCH (11:58)
[2024-10-14] MEDS: LEVAQUIN PREMIX IV 500 MG 500 MG/100 ML BAG IV SCH (13:10)
[2024-10-15 06:49] LABS: MEAN PLATELET VOLUME 8.6 fL (7.4-11.0); RED CELL DISTRIBUTION WIDTH 22.5 % (11.6-16.5)
[2024-10-15 06:54] LABS: COR CA(FOR HYPOALB) 9.7 mg/dL (8.5-10.1); CREATININE 0.65 mg/dL (0.55-1.02); eGFR NON BLACK RACES > 60 (>60)
[2024-10-15 07:01] LABS: PLATELET MORPHOLOGY COMMENT NORMAL (NORMAL)
[2024-10-15 08:23] VITALS: RESP 20
[2024-10-15 13:06] VITALS: BP 161/69; PULSE 77; TEMP 98.3; O2SAT 97
== END 2024-10-15 13:20 | disposition home or self-care (01) | DRG 872 ==
LOC: ER 08:17 → MED/SURG 13:09
PROVIDERS: ADMIT Internal Medicine; ATTEND Internal Medicine
DX: Z29.89 Encounter for other specified prophylactic measures; I10 Essential (primary) hypertension; Z16.12 Extended spectrum beta lactamase (ESBL) resistance; J20.8 Acute bronchitis due to other specified organisms; F41.8 Other specified anxiety disorders; A41.89 Other specified sepsis; Z03.818 Encounter for observation for suspected exposure to other biological agents ruled out; R06.02 Shortness of breath; J44.9 Chronic obstructive pulmonary disease, unspecified; R06.09 Other forms of dyspnea; R79.1 Abnormal coagulation profile; I25.10 Atherosclerotic heart disease of native coronary artery without angina pectoris; R53.1 Weakness; J45.901 Unspecified asthma with (acute) exacerbation; B96.29 Other Escherichia coli [E. coli] as the cause of diseases classified elsewhere; K21.9 Gastro-esophageal reflux disease without esophagitis; K29.00 Acute gastritis without bleeding; E04.1 Nontoxic single thyroid nodule; M19.90 Unspecified osteoarthritis, unspecified site; N39.0 Urinary tract infection, site not specified